=== PATIENT | male | born 1975 | race Caucasian/White ===

== ENCOUNTER 2017-09-09 23:51 | Emergency (ER) | payer OTHER, SELFPAY ==
[2017-09-09 23:51] VITALS: BP 173/106; PULSE 60; RESP 16; TEMP 37.1; O2SAT 97; BMI 36.9
--- NOTE | 2017-09-10 00:12 | RAD_ITS ---
STUDY: X-RAY - RIGHT ANKLE REASON FOR EXAM: Male, 42 years old. Pain, no known injury. TECHNIQUE: 3 view(s) of the ankle. COMPARISON: None. FINDINGS: Faint densities distal to the medial malleolus the largest measuring 0.3 cm compatible with small avulsion fractures age indeterminate. Distal fibula is normal. . Normal tibiotalar articulation and ankle mortise. Normal visualized talus and calcaneus. The visualized subtalar, talonavicular, calcaneocuboid and tarsal articulations are normal. Mild soft tissue swelling adjacent to the lateral malleolus. RAD/Ankle min 3 Views IMPRESSION: Mild soft tissue swelling lateral ankle. Small avulsion fractures medial malleolus age indeterminate. These may represent old injuries. Electronically Signed: Jono Bosch MD at 0:41 EST , Service support ,
[2017-09-10] MEDS: HYDROcodone Bitartrate/Apap 5/325 Tablet PO ×2 (00:42→01:12)
--- NOTE | 2017-09-10 00:57 | ED.DCSUM_ITS ---
- ER Visit Summary Date of Service: 09/10/17 Chief Complaint: Atraumatic right ankle pain History of Present Illness: The patient is a 42 M cup Monday morning with atraumatic right ankle pain. Denies any recent falls or trauma. No fever. He has had a history of gout in his left great toe before is never had his ankle. No history of DVT or PE. No calf swelling. No recent travel, surgery or mobilization. He denies knee or hip pain. No other complaints. Physical Examination: Well-appearing middle-age male. Vital signs are stable afebrile. H EENT exam unremarkable. Lungs clear to auscultation bilaterally. Heart regular rate and rhythm no murmur. Abdomen soft nontender. He is moving all 4 extremities are neurovascular intact. His right hip and right knee are nontender with normal range of motion in the swelling. The right ankle is swollen primarily laterally. Is mildly tender. His Achilles tendon is intact. There are no bony deformities. It is not red it is not hot. There is no signs of septic joint. He has a strong DP pulse. His right foot is nontender without deformity neurovascularly intact. The right calf is nontender without cords or edema. There is no lymphangitic streaking. Neurologic exam is normal. Test Results: Right ankle x-ray showed no acute process other than soft tissue swelling. Read both by myself and the radiologist. Emergency Department Course and Treatment: Repeat exam patient is doing well at 00 55. Clinically I think this is early gout. He will be started on prednisone. First dose in the ER and and 40 mg a day for 10 days. Motrin and [place] for pain. Nonweightbearing. He has crutches at home. Follow-up his primary care physician if not improving or return to the ER if worse. Treatment Plan: Prednisone treated for gout. Disposition: Discharge Impression: Acute atraumatic right ankle pain and swelling secondary to gout This note was generated with [employer] dictation software. It may contain incorrect words, spelling, and punctuation that were not noted in review of the chart prior to signing ED Disposition - Plan for ED Patient: Chief Complaint: Lower Extremity Injury Referrals: Kobi Chavez MD [Primary Care Provider] -
--- NOTE | 2017-09-10 00:57 | ED.DEP ---
ED Disposition - Plan for ED Patient: Disposition: Home or Assisted Living Chief Complaint: Lower Extremity Injury Instructions: ED Arthritis Gout Prescriptions: Hydrocodone/Acetaminophen [[place] 5-325 Tablet] 1 ea PO Q4H PRN PRN #20 tab PRN Reason: Pain Prednisone [Deltasone] 40 mg PO DAILY 10 Days tab Referrals: Kobi Chavez MD [Primary Care Provider] - 3-5 Days if not improving Additional Instructions: Prednisone daily for gallop. No weightbearing until swelling and pain are much better. [place] and Motrin for pain. Do not drive while using the [place]. Plenty of fluids and fiber to prevent constipation. Return if fever or looks a lot worse. Clinically however this is not an infection and is consistent with gout
--- NOTE | 2017-09-10 01:01 | DCINST.ED_ITS ---
ED Disposition - Plan for ED Patient: Disposition: Home or Assisted Living Chief Complaint: Lower Extremity Injury Instructions: ED Arthritis Gout Prescriptions: Hydrocodone/Acetaminophen [[place] 5-325 Tablet] 1 ea PO Q4H PRN PRN #20 tab PRN Reason: Pain Prednisone [Deltasone] 40 mg PO DAILY 10 Days tab Referrals: Kobi Chavez MD [Primary Care Provider] - 3-5 Days if not improving Additional Instructions: Prednisone daily for gallop. No weightbearing until swelling and pain are much better. [place] and Motrin for pain. Do not drive while using the [place]. Plenty of fluids and fiber to prevent constipation. Return if fever or looks a lot worse. Clinically however this is not an infection and is consistent with gout
[2017-09-10 01:15] VITALS: BP 200/115; PULSE 56; RESP 17; O2SAT 99
--- NOTE | 2017-09-10 01:15 | ED.RN ---
DISCHARGE INSTRUCTIONS GIVEN TO AND REVIEWED WITH PATIENT, PATIENT DENIES QUESTIONS OR CONCERNS AND VOICES UNDERSTANDING OF DISCHARGE INSTRUCTIONS. PT AMBULATES OUT OF ROOM WITHOUT DIFFICULTY.
== END 2017-09-10 01:16 | disposition home or self-care (01) ==
PROVIDERS: Emergency Provider Emergency Medicine; Family Provider Family Medicine; PCP Family Medicine
DX: M10.071 Idiopathic gout, right ankle and foot (principal); I10 Essential (primary) hypertension
CPT/HCPCS: 73610; 99283

== ENCOUNTER → 2017-11-10 08:03 | Outpatient (CLI) | payer OTHER, SELFPAY ==
[2017-11-10 08:06] LABS: Bacteria 0 SEEN /hpf (None Seen); White Blood Cells 0 SEEN /hpf (0-5)
[2017-11-10 10:23] LABS: Absolute Lymphocyte Count 2.35 X10^3/ul (0.83-4.51); Absolute Neutrophil Count 2.6 X10^3/uL (2.0-7.7); Basophil# 0.02 X10^3/uL; Basophil% 0.3 % (0-1); Eosinophils% 1.7 % (0-5); Hematocrit 46.6 % (40-54); Lymphocyte # 2.35 X10^3/ul (4.0); Lymphocyte % 38.8 % (19-41); Mean Corp Hgb Conc 34.3 g/gl (32-36); Mean Corpuscular Hgb 33.6 pg (27.0-32.0); Mean Corpuscular Volume 97.9 fL (80-94); Monocyte# 0.94 X10^3/uL; Monocyte% 15.5 % (0-10); Neutrophil # 2.64 X10^3/uL (2.7-7.7); Neutrophil % 43.7 % (47-70); Platelet Count 195 K/mm3 (150-450); RBC Distribution Width CV 14.3 % (11.6-14.6); RBC Distribution Width SD 50.5 fl (35.1-43.9); Red Blood Count 4.76 M/mm3 (4.6-6.2); White Blood Count 6.1 K/mm3 (4.4-11.0)
[2017-11-10 10:24] LABS: Color, Urine Yellow (Yellow); Glucose, Dipstick Normal (Normal); Ketone-Dipstick Negative (Negative); Leukocyte Esterase-Dipstick Negative /ul (Negative); Nitrite-Dipstick Negative (Negative); Occult Blood-Urine Negative /ul (Negative); POSITIVE COUNT NO; POSITIVE DIFFERENTIAL NO; POSITIVE MORPHOLOGY NO; Protein-Dipstick Negative (Negative); Urine Bilirubin Dipstick Negative (Negative); Urine Clarity Clear (Clear); Urine Urobilinogen Normal (Normal)
[2017-11-10 10:47] LABS: AST(SGOT) 23 U/L (15-37); Alanine Aminotransfer ALT/SGPT 38 U/L (16-61); Albumin, Serum 3.7 g/dL (3.2-5.0); Alkaline Phosphatase 70 U/L (45-117); Anion Gap 8 (5-15); BUN 13 mg/dL (7-18); BUN/Creat Ratio 12.4 RATIO (10-20); Calcium,Total 8.8 mg/dL (8.5-10.1); Chloride 108 mmol/L (98-107); Cholesterol 133 mg/dL (200); Creatinine, Serum 1.05 mg/dL (0.70-1.30); EST Glomerular Filtration Rate 82 mL/min (>60); Est Glom Filt Rate - Afr Amer 99 mL/min (>60); Globulin 3.8 g/dL (2.2-4.2); Glucose 87 mg/dL (74-106); High Density Lipoprotein 27 mg/dL; Potassium 3.7 mmol/L (3.5-5.1); Protein, Total 7.5 g/dL (6.4-8.2); Sodium Level 142 mmol/L (136-145); Thyroid Stim Hormone (TSH) 1.91 uIU/mL (0.358-3.74); Triglycerides 121 mg/dL; Uric Acid 8.5 mg/dL (3.5-7.2); Very Low Density Lipoprotein 24 mg/dL (5-40)
[2017-11-10 10:52] LABS: Mucous, Urine RARE /hpf (<or=2+); Red Blood Cells-Urine 0-5 SEEN /hpf (0-5); Squamous Epithelial Cells - UA 0-5 SEEN /hpf (0-5)
== END ==
PROVIDERS: Family Provider Family Medicine; PCP Family Medicine; Visit Provider Family Medicine
DX: I10 Essential (primary) hypertension (principal); M10.9 Gout, unspecified
CPT/HCPCS: 36415; 80053; 80061; 81001; 84443; 84550; 85025

== ENCOUNTER → 2018-03-01 11:39 | Outpatient (CLI) | payer OTHER, SELFPAY ==
[2018-03-01 13:59] LABS: Absolute Lymphocyte Count 1.93 X10^3/ul (0.83-4.51); Absolute Neutrophil Count 3.5 X10^3/uL (2.0-7.7); Basophil# 0.01 X10^3/uL; Basophil% 0.2 % (0-1); Eosinophil# 0.09 X10^3/uL; Eosinophils% 1.4 % (0-5); Hematocrit 46.4 % (40-54); Hemoglobin 15.7 g/dl (13.0-16.5); Lymphocyte # 1.93 X10^3/ul (4.0); Lymphocyte % 30.2 % (19-41); Mean Corp Hgb Conc 33.8 g/gl (32-36); Mean Corpuscular Hgb 34.1 pg (27.0-32.0); Mean Corpuscular Volume 100.9 fL (80-94); Mean Platelet Vol. 11.2 fl (6.2-12.0); Monocyte# 0.83 X10^3/uL; Neutrophil # 3.53 X10^3/uL (2.7-7.7); Platelet Count 210 K/mm3 (150-450); RBC Distribution Width CV 14.7 % (11.6-14.6); White Blood Count 6.4 K/mm3 (4.4-11.0)
[2018-03-01 14:02] LABS: POSITIVE COUNT NO; POSITIVE DIFFERENTIAL NO; POSITIVE MORPHOLOGY NO
[2018-03-01 14:14] LABS: ALB/GLOB Ratio 0.9 RATIO (0.9-2.4); AST(SGOT) 28 U/L (15-37); Alanine Aminotransfer ALT/SGPT 49 U/L (16-61); Albumin, Serum 3.7 g/dL (3.2-5.0); Alkaline Phosphatase 68 U/L (45-117); Anion Gap 8 (5-15); BUN 14 mg/dL (7-18); BUN/Creat Ratio 11.2 RATIO (10-20); Calcium,Total 9.1 mg/dL (8.5-10.1); Chloride 108 mmol/L (98-107); Creatinine, Serum 1.25 mg/dL (0.70-1.30); EST Glomerular Filtration Rate 67 mL/min (>60); Est Glom Filt Rate - Afr Amer 81 mL/min (>60); Globulin 3.9 g/dL (2.2-4.2); Glucose 92 mg/dL (74-106); Potassium 4.1 mmol/L (3.5-5.1); Protein, Total 7.6 g/dL (6.4-8.2); Sodium Level 143 mmol/L (136-145); Uric Acid 6.7 mg/dL (3.5-7.2)
== END ==
PROVIDERS: Family Provider Family Medicine; PCP Family Medicine; Visit Provider Family Medicine
DX: I10 Essential (primary) hypertension (principal); M10.9 Gout, unspecified
CPT/HCPCS: 36415; 80053; 84550; 85025

== ENCOUNTER → 2018-04-24 08:13 | Outpatient (CLI) | payer OTHER, SELFPAY ==
--- NOTE | 2018-04-24 08:18 | RAD_ITS ---
STUDY: X-RAY CHEST REASON FOR EXAM: Male, 42 years old. Hemoptysis TECHNIQUE: PA and lateral views of the chest. COMPARISON: None. FINDINGS: The lungs are clear and expanded. There is no demonstrated pleural abnormality. Normal size heart. Normal mediastinum and josefa. Normal visualized pulmonary arteries. Normal visualized aortic arch and descending thoracic aorta. Normal visualized thoracic spine. Normal visualized ribs, clavicles, and shoulders. There is no demonstrated abnormality of the visualized soft tissue structures of the upper abdomen. RAD/Chest PA and Lateral IMPRESSION: Normal x-ray examination of the chest. Electronically Signed: Ryley Dickson MD at 17:14 EDT , Service support ,
== END ==
PROVIDERS: Family Provider Family Medicine; PCP Family Medicine; Referring Provider Family Medicine; Visit Provider Family Medicine
DX: R04.2 Hemoptysis (principal)
CPT/HCPCS: 71046

== ENCOUNTER 2018-05-29 09:05 | Observation (INO) | payer OTHER, SELFPAY ==
[2018-05-29] VITALS (14 sets, daily range): BP systolic 118–151; BP diastolic 74–93; PULSE 44–63; RESP 16–18; TEMP 36.4–36.9; O2SAT 95–100; BMI 34.4; BMI 32.8; BMI 32.9
--- NOTE | 2018-05-29 09:29 | RAD_ITS ---
STUDY: X-RAY CHEST REASON FOR EXAM: Male, 42 years old. Left-sided chest pain. TECHNIQUE: Single AP portable view of the chest. COMPARISON: Comparison is made with prior study dated April 24, 2018. FINDINGS: EKG electrodes are seen. The lungs are clear and expanded. There is no demonstrated pleural abnormality. There is mild cardiac enlargement. Normal mediastinum and josefa. Normal visualized pulmonary arteries. There is atherosclerotic tortuosity of the aortic arch and descending thoracic aorta. There are diffuse degenerative changes of the visualized thoracic spine. Normal visualized ribs, clavicles, and shoulders. There is no demonstrated abnormality of the visualized soft tissue structures of the upper abdomen. RAD/Chest 1 View (Portable) IMPRESSION: Mild cardiomegaly. The lungs are clear. Electronically Signed: Drew Arriola MD at 10:05 EST Tel [phone], Service support ,
--- NOTE | 2018-05-29 09:29 | EKG12_ITS ---
Test Reason : CP/SOB Blood Pressure : / mmHG Vent. Rate : 051 BPM Atrial Rate : 051 BPM P-R Int : 186 ms QRS Dur : 092 ms QT Int : 432 ms P-R-T Axes : 012 -28 -05 degrees QTc Int : 398 ms Sinus bradycardia Voltage criteria for left ventricular hypertrophy Cannot rule out Septal infarct , age undetermined Abnormal ECG Confirmed by MYRON CHACON, LEANDRO ([id number]), scientific editor DOREEN DIAZ ([id number] on 06/01/2018 2:23:31 PM Referred By: JUSTIN/LANE Confirmed By:LEANDRO SANCHES MD
[2018-05-29 09:50] LABS: Absolute Lymphocyte Count 1.85 X10^3/ul (0.83-4.51); Absolute Neutrophil Count 4.8 X10^3/uL (2.0-7.7); Basophil# 0.01 X10^3/uL; Basophil% 0.1 % (0-1); Eosinophil# 0.02 X10^3/uL; Eosinophils% 0.3 % (0-5); Hematocrit 47.6 % (40-54); Hemoglobin 16.3 g/dl (13.0-16.5); Lymphocyte # 1.85 X10^3/ul (4.0); Lymphocyte % 24.7 % (19-41); Mean Corp Hgb Conc 34.2 g/gl (32-36); Mean Corpuscular Hgb 34.2 pg (27.0-32.0); Mean Corpuscular Volume 99.8 fL (80-94); Monocyte# 0.83 X10^3/uL; Monocyte% 11.1 % (0-10); Neutrophil # 4.78 X10^3/uL (2.7-7.7); Neutrophil % 63.7 % (47-70); POSITIVE COUNT NO; POSITIVE DIFFERENTIAL NO; POSITIVE MORPHOLOGY NO; Platelet Count 207 K/mm3 (150-450); RBC Distribution Width CV 14.5 % (11.6-14.6); RBC Distribution Width SD 52.9 fl (35.1-43.9); Red Blood Count 4.77 M/mm3 (4.6-6.2); White Blood Count 7.5 K/mm3 (4.4-11.0)
[2018-05-29 10:00] LABS: Anion Gap 10 (5-15); BUN 12 mg/dL (7-18); BUN/Creat Ratio 10.2 RATIO (10-20); Calcium,Total 9.3 mg/dL (8.5-10.1); Chloride 107 mmol/L (98-107); Creatinine, Serum 1.18 mg/dL (0.70-1.30); EST Glomerular Filtration Rate 71 mL/min (>60); Est Glom Filt Rate - Afr Amer 86 mL/min (>60); Estimated Creatinine Clearance 83.35 ml/min; Glucose 118 mg/dL (74-106); Potassium 3.6 mmol/L (3.5-5.1); Sodium Level 144 mmol/L (136-145)
[2018-05-29] MEDS: Aspirin 81 MG TAB.CHEW 324 MG PO (10:02)
[2018-05-29] MEDS: Acetaminophen 325 MG Tablet 650 MG PO ×2 (10:15→17:48)
--- NOTE | 2018-05-29 10:21 | ED.VISSUMM ---
- ER Visit Summary Date of Service: 05/29/18 Chief Complaint: Chest tightness/pressure left pectoral region History of Present Illness: The patient is a 42 M who presents from doctor's office. An appointment to be seen. When he informed his PCP that he had left-sided pressure/tightness with nausea dyspnea he was instructed to report to the emergency department. Patient states yesterday after he got home from work. He was sitting in a chair when he developed a pressure type sensation left pectoral area with radiation to the central upper back associated with diaphoresis and dyspnea. He reports no alleviating, precipitating or exacerbating factors. He has not stressed himself since the onset. There are no steps at his house. He did not do anything strenuous. He denies history of hematemesis, melena hematochezia. He denies history of GERD, reflux or hiatal hernia. There is a strong maternal family history of heart disease. His only risk factor is hypertension for 5-7 years. He denies neck pain, paresthesia, anesthesia upper lower extremity. He denies ocular, visual auditory symptoms. He states he took ibuprofen with no effect. Physical Examination: Vital signs noted and blood pressure is elevated 151/93. Heart rates 58. Head is atraumatic normocephalic. Pupils are equal round reactive. Extraocular muscles are intact. TMs are pearly white with landmarks noted. Nares patent with no drainage. Posterior pharynx without erythema or exudate. Uvula is midline. There is no dysphonia or dysphasia. Trachea is midline. There is no stridor with auscultation of the neck. Heart is regular without murmur, gallop or rub. S1 and S2 are normal. Lungs are clear to auscultation with good movement of air bilaterally. There is no reproducible chest pain. Abdomen is soft nontender with no paraspinal megaly. There is no asymmetry, swelling, discoloration, leg vein distention, palpable cords or tenderness along the distribution of the deep venous system. Neuro exam is nonfocal. Test Results: EKG was obtained and reveals a sinus bradycardia rate of 51 with evidence of LVH by voltage criteria and decreased anterior force. Portable chest x-ray reveals normal cardiac silhouette, mediastinum and lung parenchyma. CBC reveals an MCV of 99.8 otherwise negative. BMP is unremarkable with a glucose of 118. First troponin is less than 0.015. Emergency Department Course and Treatment: Patient was treated with aspirin and nitroglycerin. When he was reassessed at 1020 he reports minimal if any discomfort. He did receive 3 nitroglycerin. Need to evaluate for cardiac versus GI versus pulmonary etiology. D-dimer was not obtained since patient is PERC negative. Treatment Plan: Contact hospitalist for provocative testing Disposition: 23-hour observation PCU Impression: Chest pressure alleviated with nitroglycerin Sinus bradycardia documented on monitor and EKG History of hypertension This note was generated with [employer] dictation software. It may contain incorrect words, spelling, and punctuation that were not noted in review of the chart prior to signing ED Disposition - Plan for ED Patient: Chief Complaint: Chest Pain Referrals: Luis Enrique Paz MD [Primary Care Provider] -
[2018-05-29] MEDS: Nitroglycerin Oint 1 INCH PACKET TRANSDERM. (10:45)
--- NOTE | 2018-05-29 15:49 | HP.PCM_ITS ---
Problem List (1) Hypertension Status: Chronic History of Present Illness Date of Admission: 05/29/18 Chief Complaint: Chest pain. The patient is a 42 year old M who presents to the emergency room due to chest pain. Patient states he was resting when this initially occurred. Denies associated shortness of breath, diaphoresis, dizziness, lightheadedness. Patient reports pain on the left side of his chest. Denies pain radiation although does state he has some tingling sensation to his left arm. He reports history of high blood pressure. He states a third agent was added about a month ago to control his blood pressure. He denies other cardiac history. No history of stress test. Patient reports a significant cardiac history on both sides of his family. Past Medical History Past Medical History (Chronic Problems): Chronic Problems Hypertension (Chronic) Allergies No Known Allergies Allergy (Verified 05/29/18 09:07) Home Medications: Ambulatory Orders Medication Instructions Recorded Atenolol [Tenormin] 25 mg PO DAILY 07/14/13 Losartan Potassium 100 mg PO DAILY 09/10/17 Amlodipine [Norvasc] 5 mg PO DAILY 05/29/18 Surgical History: tonsillectomy, - - Left shoulder scope, knee scope, right ankle scope, cystoscopy with balloon dilation of right ureter and right ureteroscopy/lithotripsy. Lives: Spouse/ Significant Other Smoking Status: Never smoker Alcohol: None Drugs: None - *Family History Maternal History Items: Hypertension Paternal History Items: - - Denies known paternal cardiac history Review of Systems Constitutional: Denies: Chills, Fever, Weight Change HEENT: Denies: Head Aches, Sinus Congestion, Sinus Drainage Cardiovascular: Reports: Chest Pain. Denies: Edema, Light Headedness, Palpitations, Syncope Respiratory: Denies: Cough, Shortness of breath at rest, Sputum production Gastrointestinal: Denies: Abdominal Pain, Nausea, Vomiting Genitourinary: Denies: Dysuria Musculoskeletal: Denies: Joint Pain, Joint Tenderness Skin: Denies: Rash, Wounds Neurological: Denies: Numbness, Tingling, Focal weakness Psychiatric: Denies: Anxiety, Depression, Homicidal Ideations, Suicidal Ideations Hematologic/ Lymphatic: Denies: Easy Bruising, Easy Bleeding VTE Information - Inpt Only VTE Present on Admission: No VTE Mechan Device Prophylaxis: None VTE Pharm Prophylaxis ordered?: No Reason prophylaxis not ordered:: Treatment Not Indicated - Physical Exam General: Alert, Oriented x3, Cooperative HEENT: Atraumatic, PERRLA, EOMI, Normocephalic Neck: Supple, No JVD, Negative Carotid Bruits Lungs: Clear to auscultation, Normal air movement Cardiovascular: Regular rate, Regular Rhythm, Normal S1, Normal S2, No murmurs Abdomen: Bowel Sounds Present, Soft, Non Tender, Non-Distended Extremities: No edema, Capillary Refill Less than 3 Seconds Skin: No rashes, No breakdown Musculoskeletal: No Tenderness to Palpation of Joints or Extremities Neurological: Cranial nerves II-XII grossly intact, Neuro grossly intact Psych/Mental Status: Normal Affect, Appropriate Vital Signs Temp Pulse Resp BP Pulse Ox 97.8 F 46 L 18 118/74 100 05/29/18 12:32 05/29/18 14:56 05/29/18 12:32 05/29/18 12:32 05/29/18 12:32 Oxygen Flow Rate (L/min) 2 Oxygen Delivery Method Room Air Weight: 229 lb 0.964 oz Body Mass Index (BMI) 32.8 Laboratory Tests Past 24 Hrs 05/29/18 05/29/18 05/29/18 09:21 09:21 12:30 WBC 7.5 RBC 4.77 Hgb 16.3 Hct 47.6 MCV 99.8 H MCH 34.2 H MCHC 34.2 RDW 14.5 RDW Differential 52.9 H Plt Count 207 MPV 10.0 Immature Gran % (Auto) 0.100 Neut % (Auto) 63.7 Lymph % (Auto) 24.7 [place] % (Auto) 11.1 H Eos % (Auto) 0.3 Baso % (Auto) 0.1 Absolute Neuts (auto) 4.8 Absolute Lymphs (auto) 1.85 Total Counted Not Reportable Sodium 144 Potassium 3.6 Chloride 107 Carbon Dioxide 27.0 Anion Gap 10 BUN 12 Creatinine 1.18 Estim Creat Clear Calc 83.35 Est GFR (MDRD) Af Amer 86 Est GFR (MDRD) Non-Af 71 BUN/Creatinine Ratio 10.2 Glucose 118 H Calcium 9.3 Troponin I < 0.015 < 0.015 05/29/18 15:32 WBC RBC Hgb Hct MCV MCH MCHC RDW RDW Differential Plt Count MPV Immature Gran % (Auto) Neut % (Auto) Lymph % (Auto) [place] % (Auto) Eos % (Auto) Baso % (Auto) Absolute Neuts (auto) Absolute Lymphs (auto) Total Counted Sodium Potassium Chloride Carbon Dioxide Anion Gap BUN Creatinine Estim Creat Clear Calc Est GFR (MDRD) Af Amer Est GFR (MDRD) Non-Af BUN/Creatinine Ratio Glucose Calcium Troponin I Pending Assessment/Plan 1. Chest pain-troponin negative x1. EKG without acute changes. Chest x-ray shows mild cardiomegaly. Trend enzymes. Stress test in a.m. 2. Hypertension-stable, continue home amlodipine, losartan and atenolol. 3. Bradycardia-heart rate 40-50s. Monitor telemetry. Suspect secondary to bet [place] regimen. DVT prophylaxis-not indicated due to low risk. Encourage early ambulation. This patient was seen by KYLAH Cobb under the supervision of Dr. Bueno.
[2018-05-29 17:59] LABS: Hemoglobin A1c 5.8 % (4.2-6.3)
[2018-05-30 03:05] VITALS: PULSE 48
[2018-05-30 04:00] VITALS: BP 132/84; PULSE 53; RESP 16; TEMP 36.5; O2SAT 97
[2018-05-30] MEDS: Losartan Potassium 100 MG Tablet PO (05:49)
--- NOTE | 2018-05-30 05:55 | EKG12_ITS ---
Test Reason : AM EKG Blood Pressure : / mmHG Vent. Rate : 047 BPM Atrial Rate : 047 BPM P-R Int : 196 ms QRS Dur : 102 ms QT Int : 480 ms P-R-T Axes : 019 -03 022 degrees QTc Int : 424 ms Sinus bradycardia Septal infarct , age undetermined Abnormal ECG When compared with ECG of 29-MAY-2018 09:09, MANUAL COMPARISON REQUIRED, DATA IS UNCONFIRMED Confirmed by MYRON CHACON, LEANDRO ([id number]), mapping editor DOREEN DIAZ ([id number]) on 06/01/2018 2:01:30 PM Referred By: DR HOOVER Confirmed By:LEANDRO SANCHES MD
[2018-05-30 06:15] VITALS: PULSE 54
[2018-05-30 06:15] LABS: Absolute Lymphocyte Count 2.44 X10^3/ul (0.83-4.51); Absolute Neutrophil Count 3.1 X10^3/uL (2.0-7.7); Basophil# 0.01 X10^3/uL; Basophil% 0.2 % (0-1); Eosinophil# 0.05 X10^3/uL; Eosinophils% 0.8 % (0-5); Hematocrit 43.5 % (40-54); Hemoglobin 14.7 g/dl (13.0-16.5); Lymphocyte # 2.44 X10^3/ul (4.0); Lymphocyte % 39.1 % (19-41); Mean Corp Hgb Conc 33.8 g/gl (32-36); Mean Corpuscular Hgb 33.7 pg (27.0-32.0); Mean Corpuscular Volume 99.8 fL (80-94); Monocyte# 0.67 X10^3/uL; Monocyte% 10.7 % (0-10); Neutrophil # 3.06 X10^3/uL (2.7-7.7); Platelet Count 187 K/mm3 (150-450); RBC Distribution Width CV 14.4 % (11.6-14.6); RBC Distribution Width SD 52.5 fl (35.1-43.9); Red Blood Count 4.36 M/mm3 (4.6-6.2); White Blood Count 6.2 K/mm3 (4.4-11.0)
[2018-05-30 06:26] LABS: POSITIVE COUNT NO; POSITIVE DIFFERENTIAL NO; POSITIVE MORPHOLOGY NO
[2018-05-30 06:39] LABS: Anion Gap 6 (5-15); BUN 12 mg/dL (7-18); BUN/Creat Ratio 12.7 RATIO (10-20); Calcium,Total 8.4 mg/dL (8.5-10.1); Chloride 108 mmol/L (98-107); Creatinine, Serum 0.95 mg/dL (0.70-1.30); EST Glomerular Filtration Rate 92 mL/min (>60); Est Glom Filt Rate - Afr Amer 111 mL/min (>60); Estimated Creatinine Clearance 103.52 ml/min; Glucose 92 mg/dL (74-106); Potassium 3.4 mmol/L (3.5-5.1); Sodium Level 141 mmol/L (136-145)
[2018-05-30 06:53] LABS: International Normalized Ratio 1.1; Prothrombin Time (Protime)PT. 14.2 SECONDS (11.7-14.9)
--- NOTE | 2018-05-30 09:26 | STRESSREP ---
Stress Test Report Exercise myocardial perfusion stress test. 42-year-old man with a history of chest pain. Stress protocol: Resting EKG demonstrates sinus bradycardia with a rate of 52 bpm normal intervals are noted resting blood pressure 122/80 6 m of mercury. The patient exercised according to the regular [place] protocol for a total duration of 10 minutes and 30 seconds the maximum heart rate attained was 162 bpm which was 91% of maximum predicted heart rate the maximum workload was 12.8 metabolic equivalents. At rest there were no ST or T wave changes noted suggest ischemia peak exercise upsloping ST changes only were noted with normally the criteria for ischemia. The resting blood pressure 122/86 with a peak blood pressure 190/90 mmHg. Myocardial perfusion protocol. 14.3 mCi of technetium 99m sestamibi was injected at rest. Patient exercised according to regular [place] protocol for total duration of 10-1/2 minutes at peak exercise 44.6 mCi of technetium 99m sestamibi was injected stress images were obtained stress and rest images were reconstructed and compared in the short axis vertical long horizontal long axis. Gated images were also obtained Perfusion SPECT analysis: Review of the stress images demonstrate normal uptake of tracer noted in all areas of the myocardium. The resting images similarly demonstrate normal uptake of tracer noted in all areas of the myocardium. No areas of reversibility are noted suggest ischemia no previous infarct is noted. Gated SPECT analysis: The gated ejection fraction is noted to be 62%. Conclusion: Normal exercise myocardial perfusion stress test at a high workload. Preserved ejection fraction.
[2018-05-30 09:51] VITALS: BP 146/104; PULSE 79; RESP 16; TEMP 36.9; O2SAT 98
[2018-05-30] MEDS: Atenolol 25 MG Tablet PO (09:52)
--- NOTE | 2018-05-30 11:01 | DCINST_ITS ---
- Discharge Diagnoses Current Active Problems: Current Active and Chronic Problems Hypertension (Chronic) You will use the following diet at home:: No restrictions Discharge Activity: Return to Normal Activity Call your doctor if you observe: Shortness of breath, Dizziness, Fainting spells, Chest pain Allergies/Adverse Reactions: Allergies No Known Allergies Allergy (Verified 05/29/18 09:07) Medications to take at Discharge Losartan Potassium 100 mg PO DAILY 09/10/17 Amlodipine [Norvasc] 10 mg PO DAILY #30 tablet 05/30/18 The following prescriptions were given: Amlodipine [Norvasc] 10 mg PO DAILY #30 tablet Primary Care Physician: Luis Enrique Paz MD [Primary Care Provider] - Please follow up with your Primary Care Physician in: 1 Week Test Results: Test results from this visit will be discussed in further detail at your follow- up appointment, if applicable. Proposed Discharge Date: 05/30/18
--- NOTE | 2018-05-30 11:03 | DS.PCM_ITS ---
<Carolee Silva - Last Filed: 05/30/18 11:09> Discharge Date and Diagnosis Date of Admission: 05/29/18 Date of Discharge: 05/30/18 - Primary Discharge Diagnosis 1. Chest pain, ACS ruled out 2. Hypertension 3. Mild Bradycardia - Secondary Discharge Diagnosis Chronic Problems Hypertension (Chronic) Hospital Course and Treatment Imaging Results: Diagnostic Data Chest X-Ray 05/29/18 09:29 IMPRESSION: Mild cardiomegaly. The lungs are clear. Electronically Signed: Drew Arriola MD at 10:05 EST Tel [phone], Service support , Operations: None Procedures: Stress test Summary of Care Provided: The patient is a 42 year old M admitted 05/29/18 due to chest pain. 1. Chest pain, ACS ruled out-troponin negative. EKG without acute changes. Chest x-ray shows mild cardiomegaly. Stress test without evidence of ischemia. 2. Hypertension-stable, continue home amlodipine, losartan. Atenolol discontinued and patient's home amlodipine regimen increased. Patient instructed to check blood pressure twice daily and report findings to PCP for further adjustments as necessary. 3. Mild Bradycardia-heart rate 40-50s. Suspect secondary to beta-[place] regimen. Atenolol discontinued. General: Alert, Oriented x3, Cooperative HEENT: Atraumatic, PERRLA, EOMI, Normocephalic Neck: Supple, No JVD, Negative Carotid Bruits Lungs: Clear to auscultation, Normal air movement Cardiovascular: Regular rate, Regular Rhythm, Normal S1, Normal S2, No murmurs Abdomen: Bowel Sounds Present, Soft, Non Tender, Non-Distended Extremities: No edema, Capillary Refill Less than 3 Seconds Skin: No rashes, No breakdown Musculoskeletal: No Tenderness to Palpation of Joints or Extremities Neurological: Cranial nerves II-XII grossly intact, Neuro grossly intact Psych/Mental Status: Normal Affect, Appropriate Patient seen and examined prior to discharge. Physical assessment as noted above. Patient stable for discharge home with follow up with PCP in 1 week. This patient was seen by KYLAH Cobb under the supervision of Dr. Villa. - Physical Exam Vital Signs Temp Pulse Resp BP Pulse Ox 98.5 F 79 16 146/104 H 98 05/30/18 09:51 05/30/18 09:51 05/30/18 09:51 05/30/18 09:51 05/30/18 09:51 Oxygen Flow Rate (L/min) 2 Oxygen Delivery Method Room Air Weight: 229 lb 0.964 oz Body Mass Index (BMI) 32.8 Intake and Output for Last 24 Hours 05/28/18 05/29/18 05/30/18 23:59 23:59 23:59 Intake Total 580 / 580 120 / 120 Balance 580 / 580 120 / 120 Laboratory Tests Past 24 Hrs 05/29/18 05/29/18 05/29/18 09:21 12:30 15:32 WBC RBC Hgb Hct MCV MCH MCHC RDW RDW Differential Plt Count MPV Immature Gran % (Auto) Neut % (Auto) Lymph % (Auto) [place] % (Auto) Eos % (Auto) Baso % (Auto) Absolute Neuts (auto) Absolute Lymphs (auto) Total Counted PT INR APTT Sodium Potassium Chloride Carbon Dioxide Anion Gap BUN Creatinine Estim Creat Clear Calc Est GFR (MDRD) Af Amer Est GFR (MDRD) Non-Af BUN/Creatinine Ratio Glucose Hemoglobin A1c 5.8 Calcium Troponin I < 0.015 < 0.015 05/30/18 05/30/18 05/30/18 05:25 05:25 05:25 WBC 6.2 RBC 4.36 L Hgb 14.7 Hct 43.5 MCV 99.8 H MCH 33.7 H MCHC 33.8 RDW 14.4 RDW Differential 52.5 H Plt Count 187 MPV 10.0 Immature Gran % (Auto) 0.200 Neut % (Auto) 49.0 Lymph % (Auto) 39.1 [place] % (Auto) 10.7 H Eos % (Auto) 0.8 Baso % (Auto) 0.2 Absolute Neuts (auto) 3.1 Absolute Lymphs (auto) 2.44 Total Counted Not Reportable PT 14.2 INR 1.1 APTT 26.0 Sodium 141 Potassium 3.4 L Chloride 108 H Carbon Dioxide 27.0 Anion Gap 6 BUN 12 Creatinine 0.95 Estim Creat Clear Calc 103.52 Est GFR (MDRD) Af Amer 111 Est GFR (MDRD) Non-Af 92 BUN/Creatinine Ratio 12.7 Glucose 92 Hemoglobin A1c Calcium 8.4 L Troponin I Discharge Diet: 1800 Calorie Control Diet Discharge Activity: Return to Normal Activity Call your doctor if you observe: Shortness of breath, Dizziness, Fainting spells, Chest pain Home Medications: Medications to take at Discharge Losartan Potassium 100 mg PO DAILY 09/10/17 Amlodipine [Norvasc] 10 mg PO DAILY #30 tablet 05/30/18 Following Prescrptions Were Given to Patient: Amlodipine [Norvasc] 10 mg PO DAILY #30 tablet Primary Care Physician: Luis Enrique Paz MD [Primary Care Provider] - Please follow up with your Primary Care Physician in: 1 Week Disposition: Home Minutes spent on discharge:: 35 Patient Condition:: Stable Medical Necessity - Tobacco Use Smoking Status: Never smoker Meaningful Use Info Meaningful Use Diagnoses (Choose all that apply): None applicable <Elma Villa - Last Filed: 05/30/18 16:01> Discharge Date and Diagnosis - Secondary Discharge Diagnosis Chronic Problems Hypertension (Chronic) Hospital Course and Treatment Summary of Care Provided: Patient seen by Carolee MONTERO under my supervsion The patient is a 42 year old M admitted with a complaint of chest pain. EKG was negative and troponins were also negative. CXR showed mild cardiomegaly and stress test was negative for ischemia. He remained stable and he was discharged home on 05/30/18. During admisison, he was noted to have asymptomatic bradycardia. Atenolol was discontinued and his amlodipine dose was increased. Losartan was continue. He is to follow up with his PCP and keep a log of daily BP checks to review with PCP. Patient seen and examined prior to discharge. He had no complaints and felt well. 12 point review of systems was otherwise negative. Labs and vitals reviewed. Home meds reviewed and reconciled. o/e: Vital Signs Height 5 ft 10 in Weight: 229 lb 0.964 oz Weight in Pounds 229.1 lbs Pulse Ox 98 Temperature 98.5 F Pulse Rate 80 Respiratory Rate 16 Blood Pressure 146/104 Blood Pressure Position Sitting []General: Alert, Oriented x3, Cooperative HEENT: Atraumatic, PERRLA, EOMI, Normocephalic Neck: Supple, No JVD, Negative Carotid Bruits Lungs: Clear to auscultation, Normal air movement Cardiovascular: Regular rate, Regular Rhythm, Normal S1, Normal S2, No murmurs Abdomen: Bowel Sounds Present, Soft, Non Tender, Non-Distended Extremities: No edema, Capillary Refill Less than 3 Seconds Skin: No rashes, No breakdown Musculoskeletal: No Tenderness to Palpation of Joints or Extremities Neurological: Cranial nerves II-XII grossly intact, Neuro grossly intact Psych/Mental Status: Normal Affect, Appropriate Plan as stated above. Agree with rest of Carolee Silva [employer]-C's note, assessment and plan. - Physical Exam Vital Signs Temp Pulse Resp BP Pulse Ox 98.5 F 80 16 146/104 H 98 05/30/18 09:51 05/30/18 11:12 05/30/18 09:51 05/30/18 09:51 05/30/18 09:51 Oxygen Flow Rate (L/min) 2 Oxygen Delivery Method Room Air Weight: 229 lb 0.964 oz Body Mass Index (BMI) 32.8 Intake and Output for Last 24 Hours 05/28/18 05/29/18 05/30/18 23:59 23:59 23:59 Intake Total 580 / 580 120 / 120 Balance 580 / 580 120 / 120 Laboratory Tests Past 24 Hrs 05/29/18 05/29/18 05/30/18 09:21 15:32 05:25 WBC 6.2 RBC 4.36 L Hgb 14.7 Hct 43.5 MCV 99.8 H MCH 33.7 H MCHC 33.8 RDW 14.4 RDW Differential 52.5 H Plt Count 187 MPV 10.0 Immature Gran % (Auto) 0.200 Neut % (Auto) 49.0 Lymph % (Auto) 39.1 [place] % (Auto) 10.7 H Eos % (Auto) 0.8 Baso % (Auto) 0.2 Absolute Neuts (auto) 3.1 Absolute Lymphs (auto) 2.44 Total Counted Not Reportable PT INR APTT Sodium Potassium Chloride Carbon Dioxide Anion Gap BUN Creatinine Estim Creat Clear Calc Est GFR (MDRD) Af Amer Est GFR (MDRD) Non-Af BUN/Creatinine Ratio Glucose Hemoglobin A1c 5.8 Calcium Troponin I < 0.015 05/30/18 05/30/18 05:25 05:25 WBC RBC Hgb Hct MCV MCH MCHC RDW RDW Differential Plt Count MPV Immature Gran % (Auto) Neut % (Auto) Lymph % (Auto) [place] % (Auto) Eos % (Auto) Baso % (Auto) Absolute Neuts (auto) Absolute Lymphs (auto) Total Counted PT 14.2 INR 1.1 APTT 26.0 Sodium 141 Potassium 3.4 L Chloride 108 H Carbon Dioxide 27.0 Anion Gap 6 BUN 12 Creatinine 0.95 Estim Creat Clear Calc 103.52 Est GFR (MDRD) Af Amer 111 Est GFR (MDRD) Non-Af 92 BUN/Creatinine Ratio 12.7 Glucose 92 Hemoglobin A1c Calcium 8.4 L Troponin I Code Visit Inpatient E&M: 72151 Disch Hosp
[2018-05-30 11:12] VITALS: PULSE 80
--- OUTSIDE RECORDS SUMMARY | 2018-07-10 23:36 | XMS RPT_ITS ---
:1975 Author Organization OHIP Support Name Relationship Address Phone [employer] Unavailable . + [place] [address] LUISA DENNY Unavailable [address] + [place] [address] [employer] Unavailable . + [place] [address] LUISA DENNY Unavailable [address] + [place] [address] [employer] Unavailable . + [place] [address] EDUIN LUISA Unavailable [address] + [place] [address] [employer] Unavailable . + [place] [address] LUISA DENNY Unavailable [address] + [place] [address] [employer] Unavailable . + [place] [address] EDUIN LUISA Unavailable [address] + [place] [address] [employer] Unavailable . + [place] [address] EDUIN LUISA Unavailable [address] + [place] [address] [employer] Unavailable . + [place] [address] EDUIN LUISA Unavailable [address] + [place] [address] [employer] Unavailable . + [place] [address] DENNYLUISA Unavailable [address] + [place] [address] [employer] Unavailable . + [place] [address] LUISA DENNY Unavailable [address] [facility] + [place] [address] Care Team Providers Name Role Phone Philip Ger Attending Unavailable Daniel Bueno Referring Unavailable Kobi Mg Primary Care Unavailable Kobi Davis Attending Unavailable Schinner, Luis Enrique Candice Attending Unavailable Schinner, Luis Enrique E Primary Care Unavailable Schinner, Luis Enrique E Attending Unavailable Schinner, Luis Enrique E Primary Care Unavailable Schinner, Luis Enrique E Attending Unavailable Schinner, Luis Enrique E Primary Care Unavailable Schinner, Luis Enrique E Attending Unavailable Schinner, Luis Enrique E Referring Unavailable Schinner, Luis Enrique E Primary Care Unavailable Schinner, Luis Enrique E Primary Care Unavailable Tereletsjae, Daniel Admitting Unavailable Elma Villa Attending Unavailable Tereletsky, Daniel Admitting Unavailable Schinner, Luis Enrique E Primary Care Unavailable Tereletsky, Daniel Consulting Unavailable Tereletsky, Daniel Attending Unavailable Tereletsky, Daniel Admitting Unavailable Schinner, Luis Enrique E Primary Care Unavailable Elma Villa Consulting Unavailable Elma Villa Attending Unavailable PROBLEMS PROBLEMS DATE TYPE CONDITION / CODE ATTENDING STATUS SOURCE 06/19/2018 Unknown R07.9 - Chest Philip, Ger Active [place] pain, unspecified Community / R07.9(ICD-10) Hospital Repository 04/24/2018 Unknown R04.2 - Schinner, Luis Enrique Active [place] Hemoptysis / E Community R04.2(ICD-10) Hospital Repository 11/16/2017 Unknown M10.9 - Gout, Schinner, Luis Enrique Active [place] unspecified / E Community M10.9(ICD-10) Hospital Repository PROCEDURES PROCEDURES No Procedure Records FoundRESULTS RESULTS 12 LEAD ELECTROCARDIOGRAM Observed: 06/01/2018 Status: F Source: NA 2:23 PM [facility] REPOSITORY [facility] Cardiovascular Services [address] [place] [address] 12 Lead EKG 05/29/18 0909 MR#: [id number] Acct: [id number] Name: SHAYNA DENNY Rep #: [id number] : 1975 42 From: Ger Palacios MD Attending Dr: Elma Villa MD Status: DIS SHU Ordering Dr: Salomón Landry MD Date: 05/29/18 Location: [facility] Sex: M C Admitted: 05/29/18 Test Reason : CP/SOB Blood Pressure : / mmHG Vent. Rate : 051 BPM Atrial Rate : 051 BPM P-R Int : 186 ms QRS Dur : 092 ms QT Int : 432 ms P-R-T Axes : 012 -28 -05 degrees QTc Int : 398 ms Sinus bradycardia Voltage criteria for left ventricular hypertrophy Cannot rule out Septal infarct , age undetermined Abnormal ECG Confirmed by GER PALACIOS MD ([id number]), online editor DOREEN DIAZ ([id number]) on 06/01/2018 2:23:31 PM Referred By: JUSTIN/LANE Confirmed By:GER PALACIOS MD 06/01/18 142 Date Ger Palacios MD CC: Luis Enrique Paz MD; Elma Villa MD; Salomón Landry MD Signed 12 LEAD ELECTROCARDIOGRAM Observed: 06/01/2018 Status: F Source: RYE 2:01 PM [facility] REPOSITORY [facility] Cardiovascular Services [address] [place] [address] 12 Lead EKG 05/30/18 0528 MR#: [id number] Acct: [id number] Name: SHAYNA DENNY Rep #: [id number] : 1975 42 From: Ger Palacios MD Attending Dr: Elma Villa MD Status: DIS SHU Ordering Dr: Daniel Bueno DO Date: 05/30/18 Location: [facility] Sex: M C Admitted: 05/29/18 Test Reason : AM EKG Blood Pressure : / mmHG Vent. Rate : 047 BPM Atrial Rate : 047 BPM P-R Int : 196 ms QRS Dur : 102 ms QT Int : 480 ms P-R-T Axes : 019 -03 022 degrees QTc Int : 424 ms Sinus bradycardia Septal infarct , age undetermined Abnormal ECG When compared with ECG of 29-MAY-2018 09:09, MANUAL COMPARISON REQUIRED, DATA IS UNCONFIRMED Confirmed by GER PALACIOS MD ([id number]), online editor DOREEN DIAZ ([id number]) on 06/01/2018 2:01:30 PM Referred By: DR BUENO Confirmed By:GER PALACIOS MD 06/01/18 1401 Date Ger Palacios MD CC: Luis Enrique Paz MD; Daniel Bueno DO; Elma Villa MD Signed DISCHARGE SUMMARY Observed: 05/30/2018 Status: F Source: RYE 4:02 PM [facility] REPOSITORY [facility] Medical Records Department [address] [place] [address] Discharge Summary 05/30/18 1102 MR#: [id number] Acct: [id number] Name: SHAYNA DENNY Rep #: [id number] : 1975 42 From: Carolee Silva [employer] PCP: Luis Enrique Paz MD Status: DIS SHU Y Location: [place] [id number] <Carolee Silva - Last Filed: 05/30/18 11:09> Discharge Date and Diagnosis Date of Admission: 05/29/18 Date of Discharge: 05/30/18 - Primary Discharge Diagnosis 1. Chest pain, ACS ruled out 2. Hypertension 3. Mild Bradycardia - Secondary Discharge Diagnosis Chronic Problems Hypertension (Chronic) Hospital Course and Treatment Imaging Results: Diagnostic Data Chest X-Ray 05/29/18 09:29 IMPRESSION: Mild cardiomegaly. The lungs are clear. Electronically Signed: Drew Arriola MD at 10:05 EST Tel [phone], Service support , Operations: None Procedures: Stress test Summary of Care Provided: The patient is a 42 year old M admitted 05/29/18 due to chest pain. 1. Chest pain, ACS ruled out-troponin negative. EKG without acute changes. Chest x-ray shows mild cardiomegaly. Stress test without evidence of ischemia. 2. Hypertension-stable, continue home amlodipine, losartan. Atenolol discontinued and patient's home amlodipine regimen increased. Patient instructed to check blood pressure twice daily and report findings to PCP for further adjustments as necessary. 3. Mild Bradycardia-heart rate 40-50s. Suspect secondary to beta-[place] regimen. Atenolol discontinued. General: Alert, Oriented x3, Cooperative HEENT: Atraumatic, PERRLA, EOMI, Normocephalic Neck: Supple, No JVD, Negative Carotid Bruits Lungs: Clear to auscultation, Normal air movement Cardiovascular: Regular rate, Regular Rhythm, Normal S1, Normal S2, No murmurs Abdomen: Bowel Sounds Present, Soft, Non Tender, Non-Distended Extremities: No edema, Capillary Refill Less than 3 Seconds Skin: No rashes, No breakdown Musculoskeletal: No Tenderness to Palpation of Joints or Extremities Neurological: Cranial nerves II-XII grossly intact, Neuro grossly intact Psych/Mental Status: Normal Affect, Appropriate Patient seen and examined prior to discharge. Physical assessment as noted above. Patient stable for discharge home with follow up with PCP in 1 week. This patient was seen by KYLAH Cobb under the supervision of Dr. Villa. - Physical Exam Vital Signs Temp Pulse Resp BP Pulse Ox 98.5 F 79 16 146/104 H 98 05/30/18 09:51 05/30/18 09:51 05/30/18 09:51 05/30/18 09:51 05/30/18 09:51 Oxygen Flow Rate (L/min) 2 Oxygen Delivery Method Room Air Weight: 229 lb 0.964 oz Body Mass Index (BMI) 32.8 Intake and Output for Last 24 Hours Intake Total 580 / 580 120 / 120 Balance 580 / 580 120 / 120 Laboratory Tests Past 24 Hrs WBC RBC Hgb Hct WBC 6.2 Discharge Diet: 1800 Calorie Control Diet Discharge Activity: Return to Normal Activity Call your doctor if you observe: Shortness of breath, Dizziness, Fainting spells, Chest pain Home Medications: Medications to take at Discharge Losartan Potassium 100 mg PO DAILY 09/10/17 Amlodipine [Norvasc] 10 mg PO DAILY #30 tablet 05/30/18 Following Prescrptions Were Given to Patient: Amlodipine [Norvasc] 10 mg PO DAILY #30 tablet Primary Care Physician: Luis Enrique aPz MD [Primary Care Provider] - Please follow up with your Primary Care Physician in: 1 Week Disposition: Home Minutes spent on discharge:: 35 Patient Condition:: Stable Medical Necessity - Tobacco Use Smoking Status: Never smoker Meaningful Use Info Meaningful Use Diagnoses (Choose all that apply): None applicable <Elma Villa - Last Filed: 05/30/18 16:01> Discharge Date and Diagnosis - Secondary Discharge Diagnosis Chronic Problems Hypertension (Chronic) Hospital Course and Treatment Summary of Care Provided: Patient seen by Carolee MONTERO under my supervsion The patient is a 42 year old M admitted with a complaint of chest pain. EKG was negative and troponins were also negative. CXR showed mild cardiomegaly and stress test was negative for ischemia. He remained stable and he was discharged home on 05/30/18. During admisison, he was noted to have asymptomatic bradycardia. Atenolol was discontinued and his amlodipine dose was increased. Losartan was continue. He is to follow up with his PCP and keep a log of daily BP checks to review with PCP. Patient seen and examined prior to discharge. He had no complaints and felt well. 12 point review of systems was otherwise negative. Labs and vitals reviewed. Home meds reviewed and reconciled. o/e: Vital Signs Height 5 ft 10 in Weight: 229 lb 0.964 oz Weight in Pounds 229.1 lbs Pulse Ox 98 []General: Alert, Oriented x3, Cooperative HEENT: Atraumatic, PERRLA, EOMI, Normocephalic Neck: Supple, No JVD, Negative Carotid Bruits Lungs: Clear to auscultation, Normal air movement Cardiovascular: Regular rate, Regular Rhythm, Normal S1, Normal S2, No murmurs Abdomen: Bowel Sounds Present, Soft, Non Tender, Non-Distended Extremities: No edema, Capillary Refill Less than 3 Seconds Skin: No rashes, No breakdown Musculoskeletal: No Tenderness to Palpation of Joints or Extremities Neurological: Cranial nerves II-XII grossly intact, Neuro grossly intact Psych/Mental Status: Normal Affect, Appropriate Plan as stated above. Agree with rest of Carolee MONTERO's note, assessment and plan. - Physical Exam Vital Signs Temp Pulse Resp BP Pulse Ox 98.5 F 80 16 146/104 H 98 05/30/18 09:51 05/30/18 11:12 05/30/18 09:51 05/30/18 09:51 11/28/18 09:51 Oxygen Flow Rate (L/min) 2 Oxygen Delivery Method Room Air Weight: 229 lb 0.964 oz Body Mass Index (BMI) 32.8 Intake and Output for Last 24 Hours Intake Total 580 / 580 120 / 120 Balance 580 / 580 120 / 120 Laboratory Tests Past 24 Hrs WBC 6.2 RBC 4.36 L Hgb 14.7 Hct 43.5 MCV 99.8 H MCH 33.7 H MCHC 33.8 RDW 14.4 RDW Differential 52.5 H WBC RBC Hgb Hct MCV MCH MCHC Code Visit Inpatient E AND M: [id number] Disch Hosp 05/30/18 1109 <Electronically signed by Carolee DIORC> Date Carolee DIORC 05/30/18 1602<Electronically signed by Elma Villa MD> Cosigner Signature (if applicable): Date Elma Villa MD CC: KYLAH Silva; Luis Enrique Paz MD; Elma Villa MD Signed DISCHARGE INSTRUCTION Observed: 05/30/2018 Status: F Source: NA 11:02 AM [facility] Medical Records Department [address] [place] [address] Instructions for Home/Discharge Instructions 05/30/18 1100 MR#: [id number] Acct: [id number] Name: SHAYNA DENNY Rep #: [id number] : 1975 42 From: Carolee MONTERO PCP: Luis Enrique Paz MD Status: ADM SHU - Discharge Diagnoses Current Active Problems: Current Active and Chronic Problems Hypertension (Chronic) You will use the following diet at home:: No restrictions Discharge Activity: Return to Normal Activity Call your doctor if you observe: Shortness of breath, Dizziness, Fainting spells, Chest pain Allergies/Adverse Reactions: Allergies No Known Allergies Allergy (Verified 05/29/18 09:07) Medications to take at Discharge Losartan Potassium 100 mg PO DAILY 09/10/17 Amlodipine [Norvasc] 10 mg PO DAILY #30 tablet 05/30/18 The following prescriptions were given: Amlodipine [Norvasc] 10 mg PO DAILY #30 tablet Primary Care Physician: Luis Enrique Paz MD [Primary Care Provider] - Please follow up with your Primary Care Physician in: 1 Week Test Results: Test results from this visit will be discussed in further detail at your follow-up appointment, if applicable. Proposed Discharge Date: 05/30/18 05/30/18 1102 <Electronically signed by Carolee MONTERO> Date Carolee MONTERO CC: Luis Enrique Paz MD STRESS REPORT Observed: 05/30/2018 Status: F Source: RYE 9:28 AM [facility] REPOSITORY [facility] Cardiovascular Services [address] [place] [address] MR#: [id number] Acct: [id number] Name: SHAYNA DENNY Rep #: [id number] : 1975 42 From: Ger Palacios MD Primary Care: Luis Enrique Paz MD Status: ADM SHU Ordering Dr: [place]: Derrek Pulliam Stress Test Report Exercise myocardial perfusion stress test. 42-year-old man with a history of chest pain. Stress protocol: Resting EKG demonstrates sinus bradycardia with a rate of 52 bpm normal intervals are noted resting blood pressure 122/80 6 m of mercury. The patient exercised according to the regular [place] protocol for a total duration of 10 minutes and 30 seconds the maximum heart rate attained was 162 bpm which was 91% of maximum predicted heart rate the maximum workload was 12.8 metabolic equivalents. At rest there were no ST or T wave changes noted suggest ischemia peak exercise upsloping ST changes only were noted with normally the criteria for ischemia. The resting blood pressure 122/86 with a peak blood pressure 190/90 mmHg. Myocardial perfusion protocol. 14.3 mCi of technetium 99m sestamibi was injected at rest. Patient exercised according to regular [place] protocol for total duration of 10-1/2 minutes at peak exercise 44.6 mCi of technetium 99m sestamibi was injected stress images were obtained stress and rest images were reconstructed and compared in the short axis vertical long horizontal long axis. Gated images were also obtained Perfusion SPECT analysis: Review of the stress images demonstrate normal uptake of tracer noted in all areas of the myocardium. The resting images similarly demonstrate normal uptake of tracer noted in all areas of the myocardium. No areas of reversibility are noted suggest ischemia no previous infarct is noted. Gated SPECT analysis: The gated ejection fraction is noted to be 62%. Conclusion: Normal exercise myocardial perfusion stress test at a high workload. Preserved ejection fraction. 05/30/18927 <Electronically signed by Ger Palacios MD> Date Ger Palacios MD CC: Luis Enrique Paz MD; Elma Villa MD Date Dictated: 05/30/18925 Date Transcribed: 05/30/18925 Ditcher Operator: CO Signed CBC W/DIFF, AUTOMATED Collected: 05/30/2018 Status: F Source: RYE 5:25 AM [facility] REPOSITORY TYPE CODE TESTS RESULT OUT OF RANGE REFERENCE UNITS LAB L100.1000 4.4-11.0 K/mm3 Normal WBC 6.2 LAB L100.1200 4.6-6.2 M/mm3 Low RBC 4.36 LAB L100.1300 13.0-16.5 g/dl Normal HGB 14.7 LAB L100.1400 40-54 % Normal HCT 43.5 LAB L100.1500 80-94 fL High MCV 99.8 LAB L100.1600 27.0-32.0 pg High MCH 33.7 LAB L100.1700 32-36 g/gl Normal MCHC 33.8 LAB L100.1810 11.6-14.6 % Normal RDW CV 14.4 LAB L100.1820 35.1-43.9 fl High RDW SD 52.5 LAB L100.1900 150-450 K/mm3 Normal PLT 187 LAB L100.2000 6.2-12.0 fl Normal MPV 10.0 LAB L100.2100 47-70 % Normal NEUT% 49.0 LAB L100.2200 19-41 % Normal LY% 39.1 LAB L100.2300 0-10 % High MONO% 10.7 LAB L100.2400 0-5 % Normal EO% 0.8 LAB L100.2500 0-1 % Normal BASO% 0.2 LAB L100.2550 0.0-0.9 % Normal IM GRAN % 0.200 Result Comment: IG% - Immature Granulocytes (promyelocytes, myelocytes and metamyelocytes) > 1% indicates that a LEFT SHIFT is Present. LAB L100.2620 2.0-7.7 X10 3/uL Normal Absolute Neut 3.1 LAB L100.2720 0.83-4.51 X10 3/ul Normal Absolute Lymph 2.44 Performed By: #### L100.0100 #### [facility] [address] [place], [address] BASIC METABOLIC Collected: 05/30/2018 Status: F Source: RYE PROFILE ([facility]) 5:25 AM [facility] REPOSITORY TYPE CODE TESTS RESULT OUT OF RANGE REFERENCE UNITS LAB L501.0100 74-106 mg/dL Normal GLU 92 Result Comment: Please note revised GLUCOSE reference range effective 2017. LAB L501.1000 7-18 mg/dL Normal BUN 12 LAB L501.1100 0.70-1.30 mg/dL Normal CREAT,SERUM 0.95 Result Comment: The validity of the calculated GFR AND GFRAA in patients over 70 years has not been determined. Clinical correlation is essential. LAB L501.1110 >60 mL/min Normal EST GFR 92 Result Comment: Non- GFR Calc LAB L501.1115 >60 mL/min Normal EST GFR - AA 111 Result Comment: GFR Calc LAB L501.1255 ml/min Normal Estimated CRCL 103.52 LAB L501.1300 10-20 RATIO BUN/CRE Normal 12.7 LAB L501.2200 8.5-10 mg/dL Low .1 CA 8.4 LAB L501.5300 136-14 mmol/L 5 NA Normal 141 LAB L501.5600 3.5-5. mmol/L Low 1 K 3.4 LAB L501.5900 98-107 mmol/L High CL 108 LAB L501.6100 21.0-3 mmol/L 2.0 CO2 Normal 27.0 LAB L501.6200 5-15 GAP Normal 6 Performed By: #### L500.2500 #### [facility] [address] [place], [address] PROTHROMBIN TIME W/INR Collected: 05/30/2018 Status: F Source: RYE 5:25 AM [facility] REPOSITORY TYPE CODE TESTS RESULT OUT OF RANGE REFERENCE UNITS LAB L300.4150 11.7-14.9 SECONDS Normal PROTIME 14.2 LAB L300.4200 Normal INR 1.1 Performed By: #### L300.3900, L300.4310 #### [facility] [address] [facility] [place], [address] PARTIAL THROMBOPLAST Collected: 05/30/2018 Status: F Source: RYE TIME 5:25 AM [facility] REPOSITORY TYPE CODE TESTS RESULT OUT OF RANGE REFERENCE UNITS LAB L300.4310 24.1-36.2 Seconds Normal PTT 26.0 Performed By: #### L300.3900, L300.4310 #### [facility] [address] [facility] [place], [address] HISTORY AND PHYSICAL Observed: 05/29/2018 Status: F Source: RYE EXAM 7:41 PM [facility] REPOSITORY [facility] Medical Records Department [address] [place] [address] History and Physical 05/29/18 1543 MR#: [id number] Acct: [id number] Name: SHAYNA DENNY Rep #: [id number] : 1975 42 From: Carolee Silva [employer] PCP: Luis Enrique Paz MD Status: ADM IN Location: [place] [id number] ADDENDUM by Daniel Bueno DO on 05/29/18 at 1941 Code Visit Seen and examined today independently of Carolee Silva, he came to the emergency room today after being sent in to the emergency room at [facility] by his PCP when he complained of left-sided chest pain which she describes as a pressure and radiating into his back. The pain first started yesterday after work. Patient states he became sweaty and nauseated. Workup in the emergency room included an EKG which showed no evidence of ischemic changes, patient's lab work including troponin were unremarkable. Physical exam: On examination he appeared in good health and spirits. Vital signs as documented. Skin warm and dry and without overt rashes. Neck without JVD. Lungs clear. Heart exam notable for regular rhythm, normal sounds and absence of murmurs, rubs or gallops. Abdomen unremarkable and without evidence of organomegaly, masses, or abdominal aortic enlargement. Extremities nonedematous. Neuro: Cranial nerves II through XII are grossly intact, no focal motor deficits were noted. Psych: Patient is alert and oriented x3, he does not appear anxious or depressed Patient will be placed in observation status on PCU, cardiac enzymes will be cycled, if these remain normal, he will undergo an exercise nuclear stress test tomorrow. I have reviewed Carolee Silva's history and physical and medical plan of care and endorse it. OBSV E AND M: [id number] Initial observation care L3 05/29/181940 <Electronically signed by Daniel Bueno DO> Date Daniel Bueno DO cc: KYLAH Silva; Luis Enrique Paz MD; Daniel Bueno DO * Signed Problem List (1) Hypertension Status: Chronic History of Present Illness Date of Admission: 05/29/18 Chief Complaint: Chest pain. The patient is a 42 year old M who presents to the emergency room due to chest pain. Patient states he was resting when this initially occurred. Denies associated shortness of breath, diaphoresis, dizziness, lightheadedness. Patient reports pain on the left side of his chest. Denies pain radiation although does state he has some tingling sensation to his left arm. He reports history of high blood pressure. He states a third agent was added about a month ago to control his blood pressure. He denies other cardiac history. No history of stress test. Patient reports a significant cardiac history on both sides of his family. Past Medical History Past Medical History (Chronic Problems): Chronic Problems Hypertension (Chronic) Allergies No Known Allergies Allergy (Verified 05/29/18 09:07) Home Medications: Ambulatory Orders Medication Instructions Recorded Atenolol [Tenormin] 25 mg PO DAILY 07/14/13 Losartan Potassium 100 mg PO DAILY 09/10/17 Amlodipine [Norvasc] 5 mg PO DAILY 05/29/18 Surgical History: tonsillectomy, - - Left shoulder scope, knee scope, right ankle scope, cystoscopy with balloon dilation of right ureter and right ureteroscopy/lithotripsy. Lives: Spouse/ Significant Other Smoking Status: Never smoker Alcohol: None Drugs: None - *Family History Maternal History Items: Hypertension Paternal History Items: - - Denies known paternal cardiac history Review of Systems Constitutional: Denies: Chills, Fever, Weight Change HEENT: Denies: Head Aches, Sinus Congestion, Sinus Drainage Cardiovascular: Reports: Chest Pain. Denies: Edema, Light Headedness, Palpitations, Syncope Respiratory: Denies: Cough, Shortness of breath at rest, Sputum production Gastrointestinal: Denies: Abdominal Pain, Nausea, Vomiting Genitourinary: Denies: Dysuria Musculoskeletal: Denies: Joint Pain, Joint Tenderness Skin: Denies: Rash, Wounds Neurological: Denies: Numbness, Tingling, Focal weakness Psychiatric: Denies: Anxiety, Depression, Homicidal Ideations, Suicidal Ideations Hematologic/ Lymphatic: Denies: Easy Bruising, Easy Bleeding VTE Information - Inpt Only VTE Present on Admission: No VTE Mechan Device Prophylaxis: None VTE Pharm Prophylaxis ordered?: No Reason prophylaxis not ordered:: Treatment Not Indicated - Physical Exam General: Alert, Oriented x3, Cooperative HEENT: Atraumatic, PERRLA, EOMI, Normocephalic Neck: Supple, No JVD, Negative Carotid Bruits Lungs: Clear to auscultation, Normal air movement Cardiovascular: Regular rate, Regular Rhythm, Normal S1, Normal S2, No murmurs Abdomen: Bowel Sounds Present, Soft, Non Tender, Non-Distended Extremities: No edema, Capillary Refill Less than 3 Seconds Skin: No rashes, No breakdown Musculoskeletal: No Tenderness to Palpation of Joints or Extremities Neurological: Cranial nerves II-XII grossly intact, Neuro grossly intact Psych/Mental Status: Normal Affect, Appropriate Vital Signs Temp Pulse Resp BP Pulse Ox 97.8 F 46 L 18 118/74 100 05/29/18 12:32 05/29/18 14:56 05/29/18 12:32 05/29/18 12:32 05/29/18 12:32 Oxygen Flow Rate (L/min) 2 Oxygen Delivery Method Room Air Weight: 229 lb 0.964 oz Body Mass Index (BMI) 32.8 Laboratory Tests Past 24 Hrs WBC RBC Hgb Hct MCV MCH MCHC RDW RDW Differential Plt Count MPV Immature Gran % (Auto) Assessment/Plan 1. Chest pain-troponin negative x1. EKG without acute changes. Chest x-ray shows mild cardiomegaly. Trend enzymes. Stress test in a.m. 2. Hypertension-stable, continue home amlodipine, losartan and atenolol. 3. Bradycardia-heart rate 40-50s. Monitor telemetry. Suspect secondary to beta-[place] regimen. DVT prophylaxis-not indicated due to low risk. Encourage early ambulation. This patient was seen by KYLAH Cobb under the supervision of Dr. Bueno. 05/29/18 1555 <Electronically signed by Carolee MONTERO> Date Carolee MONTERO 05/29/18 193<Electronically signed by Daniel Bueno DO> Cosigner Signature: Date (if applicable) Daniel Bueno DO CC: KYLAH Silva; Luis Enrique Paz MD; Daniel Bueno DO Signed TROPONIN-I Collected: 05/29/2018 Status: F Source: NA 3:32 PM [facility] REPOSITORY Order Comment: 'TROP' Serial specimen #1, #2 or #3: 3 TYPE CODE TESTS RESULT OUT OF RANGE REFERENCE UNITS LAB L501.4010 <0.045 ng/mL Normal < 0.015 TROPONIN-I Result Comment: TROPONIN-I EXPECTED VALUES <0.045 Negative 0.045 - 0.590 Consistent with Cardiac Damage > OR = 0.600 Critical Value Not every elevated troponin is indicative of GA. These values should be used with clinical judgement in examining the patient's clinical picture for diagnosis. To establish a diagnosis of GA versus myocardial injury, there must be a demonstrated rise and/or fall in the troponin values, in addition to ischemic symptoms, EKG changes, new regional wall motion abnormality, and/or angiographical evidence. PLEASE NOTE: REFERENCE RANGES EDITED 17 Performed By: #### L501.4010 #### [facility] [address] [facility] [place], [address] TROPONIN-I Collected: 05/29/2018 Status: F Source: RYE 12:30 PM [facility] REPOSITORY Order Comment: 'TROP' Serial specimen #1, #2 or #3: 2 TYPE CODE TESTS RESULT OUT OF RANGE REFERENCE UNITS LAB L501.4010 <0.045 ng/mL Normal < 0.015 TROPONIN-I Result Comment: TROPONIN-I EXPECTED VALUES <0.045 Negative 0.045 - 0.590 Consistent with Cardiac Damage > OR = 0.600 Critical Value Not every elevated troponin is indicative of GA. These values should be used with clinical judgement in examining the patient's clinical picture for diagnosis. To establish a diagnosis of GA versus myocardial injury, there must be a demonstrated rise and/or fall in the troponin values, in addition to ischemic symptoms, EKG changes, new regional wall motion abnormality, and/or angiographical evidence. PLEASE NOTE: REFERENCE RANGES EDITED 17 Performed By: #### L501.4010 #### [facility] [address] [facility] [place], [address] EMERGENCY DEPARTMENT Observed: 05/29/2018 Status: F Source: RYE SUMMARY 10:26 AM [facility] REPOSITORY [facility] Medical Records Department [address] [place] [address] Emergency Department Summary 05/29/18 1021 MR#: [id number] Acct: [id number] Name: SHAYNA DENNY Rep #: [id number] : 1975 42 From: Salomón Landry MD PCP: Luis Enrique Paz MD Status: REG ER - ER Visit Summary Date of Service: 05/29/18 Chief Complaint: Chest tightness/pressure left pectoral region History of Present Illness: The patient is a 42 M who presents from doctor's office. An appointment to be seen. When he informed his PCP that he had left-sided pressure/tightness with nausea dyspnea he was instructed to report to the emergency department. Patient states yesterday after he got home from work. He was sitting in a chair when he developed a pressure type sensation left pectoral area with radiation to the central upper back associated with diaphoresis and dyspnea. He reports no alleviating, precipitating or exacerbating factors. He has not stressed himself since the onset. There are no steps at his house. He did not do anything strenuous. He denies history of hematemesis, melena hematochezia. He denies history of GERD, reflux or hiatal hernia. There is a strong maternal family history of heart disease. His only risk factor is hypertension for 5-7 years. He denies neck pain, paresthesia, anesthesia upper lower extremity. He denies ocular, visual auditory symptoms. He states he took ibuprofen with no effect. Physical Examination: Vital signs noted and blood pressure is elevated 151/93. Heart rates 58. Head is atraumatic normocephalic. Pupils are equal round reactive. Extraocular muscles are intact. TMs are pearly white with landmarks noted. Nares patent with no drainage. Posterior pharynx without erythema or exudate. Uvula is midline. There is no dysphonia or dysphasia. Trachea is midline. There is no stridor with auscultation of the neck. Heart is regular without murmur, gallop or rub. S1 and S2 are normal. Lungs are clear to auscultation with good movement of air bilaterally. There is no reproducible chest pain. Abdomen is soft nontender with no paraspinal megaly. There is no asymmetry, swelling, discoloration, leg vein distention, palpable cords or tenderness along the distribution of the deep venous system. Neuro exam is nonfocal. Test Results: EKG was obtained and reveals a sinus bradycardia rate of 51 with evidence of LVH by voltage criteria and decreased anterior force. Portable chest x-ray reveals normal cardiac silhouette, mediastinum and lung parenchyma. CBC reveals an MCV of 99.8 otherwise negative. BMP is unremarkable with a glucose of 118. First troponin is less than 0.015. Emergency Department Course and Treatment: Patient was treated with aspirin and nitroglycerin. When he was reassessed at 1020 he reports minimal if any discomfort. He did receive 3 nitroglycerin. Need to evaluate for cardiac versus GI versus pulmonary etiology. D-dimer was not obtained since patient is PERC negative. Treatment Plan: Contact hospitalist for provocative testing Disposition: 23-hour observation PCU Impression: Chest pressure alleviated with nitroglycerin Sinus bradycardia documented on monitor and EKG History of hypertension This note was generated with [email or web address] dictation software. It may contain incorrect words, spelling, and punctuation that were not noted in review of the chart prior to signing ED Disposition - Plan for ED Patient: Chief Complaint: Chest Pain Referrals: Luis Enrique Paz MD [Primary Care Provider] - What to do if you have Problems For any increased pain, shortness of breath, bleeding, nausea or vomiting, chest pain, or any unexpected problems, contact your Primary Care Provider. Call [facility] ([phone]) or report to the closest Emergency Room. Call 911 if necessary. 05/29/18 1026 <Electronically signed by Salomón Landry MD> Date Salomón Landry MD Cosigner Signature (If Indicated): Date CC: Luis Enrique Paz MD CHEST 1 VIEW Observed: 05/29/2018 Status: F Source: RYE (PORTABLE) 9:30 AM [facility] REPOSITORY [facility] Imaging Services [address] [place] [id number] Chest 1 View (Portable) MR#: [id number] Acct: [id number] Name: SHAYNA DENNY Rep #: [id number] : 1975 M 42 From: Drew Arriola MD PCP: Luis Enrique Paz MD Status: REG ER Study: Chest 1 View (Portable) Date of Exam: 05/29/18 Exam# [id number] Ordering Dr: Salomón Landry MD STUDY: X-RAY CHEST REASON FOR EXAM: Male, 42 years old. Left-sided chest pain. TECHNIQUE: Single AP portable view of the chest. COMPARISON: Comparison is made with prior study dated April 24, 2018. FINDINGS: EKG electrodes are seen. The lungs are clear and expanded. There is no demonstrated pleural abnormality. There is mild cardiac enlargement. Normal mediastinum and josefa. Normal visualized pulmonary arteries. There is atherosclerotic tortuosity of the aortic arch and descending thoracic aorta. There are diffuse degenerative changes of the visualized thoracic spine. Normal visualized ribs, clavicles, and shoulders. There is no demonstrated abnormality of the visualized soft tissue structures of the upper abdomen. RAD/Chest 1 View (Portable) IMPRESSION: Mild cardiomegaly. The lungs are clear. Electronically Signed: Drew Arriola MD at 10:05 EST Tel [phone], Service support , CC: Luis Enrique Paz MD; Salomón Landry MD Ditcher Operator: Signed CBC W/DIFF, AUTOMATED Collected: 05/29/2018 Status: F Source: RYE 9:21 AM [facility] REPOSITORY TYPE CODE TESTS RESULT OUT OF RANGE REFERENCE UNITS LAB L100.1000 4.4-11.0 K/mm3 Normal WBC 7.5 LAB L100.1200 4.6-6.2 M/mm3 Normal RBC 4.77 LAB L100.1300 13.0-16.5 g/dl Normal HGB 16.3 LAB L100.1400 40-54 % Normal HCT 47.6 LAB L100.1500 80-94 fL High MCV 99.8 LAB L100.1600 27.0-32.0 pg High MCH 34.2 LAB L100.1700 32-36 g/gl Normal MCHC 34.2 LAB L100.1810 11.6-14.6 % Normal RDW CV 14.5 LAB L100.1820 35.1-43.9 fl High RDW SD 52.9 LAB L100.1900 150-450 K/mm3 Normal PLT 207 LAB L100.2000 6.2-12.0 fl Normal MPV 10.0 LAB L100.2100 47-70 % Normal NEUT% 63.7 LAB L100.2200 19-41 % Normal LY% 24.7 LAB L100.2300 0-10 % High MONO% 11.1 LAB L100.2400 0-5 % Normal EO% 0.3 LAB L100.2500 0-1 % Normal BASO% 0.1 LAB L100.2550 0.0-0.9 % Normal IM GRAN % 0.100 Result Comment: IG% - Immature Granulocytes (promyelocytes, myelocytes and metamyelocytes) > 1% indicates that a LEFT SHIFT is Present. LAB L100.2620 2.0-7.7 X10 3/uL Normal Absolute Neut 4.8 LAB L100.2720 0.83-4.51 X10 3/ul Normal Absolute Lymph 1.85 Performed By: #### L100.0100 #### [facility] [address] [place], [address] BASIC METABOLIC Collected: 05/29/2018 Status: F Source: RYE PROFILE ([facility]) 9:21 AM [facility] REPOSITORY TYPE CODE TESTS RESULT OUT OF RANGE REFERENCE UNITS LAB L501.0100 74-106 mg/dL High GLU 118 Result Comment: Fasting Glucose result from 100 to 125 mg/dL suggests IMPAIRED HOMEOSTASIS per A.D.A. criteria. Please note revised GLUCOSE reference range effective 2017. LAB L501.1000 7-18 mg/dL Normal BUN 12 LAB L501.1100 0.70-1.30 mg/dL Normal CREAT,SERUM 1.18 Result Comment: The validity of the calculated GFR AND GFRAA in patients over 70 years has not been determined. Clinical correlation is essential. LAB L501.1110 >60 mL/min Normal EST GFR 71 Result Comment: Non- GFR Calc LAB L501.1115 >60 mL/min Normal EST GFR - AA 86 Result Comment: GFR Calc LAB L501.1255 ml/min Normal Estimated CRCL 83.35 LAB L501.1300 10-20 RATIO Normal BUN/CRE 10.2 LAB L501.2200 8.5-10 mg/dL Normal .1 CA 9.3 LAB L501.5300 136-14 mmol/L Normal 5 NA 144 LAB L501.5600 3.5-5. mmol/L Normal 1 K 3.6 LAB L501.5900 98-107 mmol/L Normal CL 107 LAB L501.6100 21.0-3 mmol/L Normal 2.0 CO2 27.0 LAB L501.6200 5-15 Normal GAP 10 Performed By: #### L500.2500, L501.4010 #### [facility] [address] [place], [address] TROPONIN-I Collected: 05/29/2018 Status: F Source: RYE 9:21 AM [facility] REPOSITORY TYPE CODE TESTS RESULT OUT OF RANGE REFERENCE UNITS LAB L501.4010 <0.045 ng/mL Normal < 0.015 TROPONIN-I Result Comment: TROPONIN-I EXPECTED VALUES <0.045 Negative 0.045 - 0.590 Consistent with Cardiac Damage > OR = 0.600 Critical Value Not every elevated troponin is indicative of GA. These values should be used with clinical judgement in examining the patient's clinical picture for diagnosis. To establish a diagnosis of GA versus myocardial injury, there must be a demonstrated rise and/or fall in the troponin values, in addition to ischemic symptoms, EKG changes, new regional wall motion abnormality, and/or angiographical evidence. PLEASE NOTE: REFERENCE RANGES EDITED 17 Performed By: #### L500.2500, L501.4010 #### [facility] [address] [place], [address] HEMOGLOBIN A1C Collected: 05/29/2018 Status: F Source: RYE 9:21 AM [facility] REPOSITORY TYPE CODE TESTS RESULT OUT OF RANGE REFERENCE UNITS LAB L501.9985 4.2-6.3 % Normal HGB A1C 5.8 Performed By: #### L501.9985 #### [facility] [address] [place], [address] CHEST PA AND LATERAL Observed: 04/24/2018 Status: F Source: RYE 8:18 AM [facility] REPOSITORY [facility] Imaging Services [address] [place] [address] Chest PA and Lateral MR#: [id number] Acct: [id number] Name: SHAYNA DENNY Rep #: [id number] : 1975 M 42 From: Ryley Dickson MD PCP: Luis Enrique Paz MD Status: REG CLI Study: Chest PA and Lateral Date of Exam: 04/24/18 Exam# [id number] Ordering Dr: Luis Enrique Paz MD STUDY: X-RAY CHEST REASON FOR EXAM: Male, 42 years old. Hemoptysis TECHNIQUE: PA and lateral views of the chest. COMPARISON: None. FINDINGS: The lungs are clear and expanded. There is no demonstrated pleural abnormality. Normal size heart. Normal mediastinum and josefa. Normal visualized pulmonary arteries. Normal visualized aortic arch and descending thoracic aorta. Normal visualized thoracic spine. Normal visualized ribs, clavicles, and shoulders. There is no demonstrated abnormality of the visualized soft tissue structures of the upper abdomen. RAD/Chest PA and Lateral IMPRESSION: Normal x-ray examination of the chest. Electronically Signed: Ryley Dickson MD at 17:14 EDT , Service support , CC: Luis Enrique Paz MD Ditcher Operator: Signed CBC W/DIFF, AUTOMATED Collected: 03/01/2018 Status: F Source: NA 11:40 AM [facility] REPOSITORY Order Comment: Order Date: 03/01/18 Order Info: 0184-1 - CBCD TYPE CODE TESTS RESULT OUT OF RANGE REFERENCE UNITS LAB L100.1000 4.4-11.0 K/mm3 Normal WBC 6.4 LAB L100.1200 4.6-6.2 M/mm3 Normal RBC 4.60 LAB L100.1300 13.0-16.5 g/dl Normal HGB 15.7 LAB L100.1400 40-54 % Normal HCT 46.4 LAB L100.1500 80-94 fL High MCV 100.9 LAB L100.1600 27.0-32.0 pg High MCH 34.1 LAB L100.1700 32-36 g/gl Normal MCHC 33.8 LAB L100.1810 11.6-14.6 % High RDW CV 14.7 LAB L100.1820 35.1-43.9 fl High RDW SD 54.0 LAB L100.1900 150-450 K/mm3 Normal PLT 210 LAB L100.2000 6.2-12.0 fl Normal MPV 11.2 LAB L100.2100 47-70 % Normal NEUT% 55.0 LAB L100.2200 19-41 % Normal LY% 30.2 LAB L100.2300 0-10 % High MONO% 13.0 LAB L100.2400 0-5 % Normal EO% 1.4 LAB L100.2500 0-1 % Normal BASO% 0.2 LAB L100.2550 0.0-0.9 % Normal IM GRAN % 0.200 Result Comment: IG% - Immature Granulocytes (promyelocytes, myelocytes and metamyelocytes) > 1% indicates that a LEFT SHIFT is Present. LAB L100.2620 2.0-7.7 X10 3/uL Normal Absolute Neut 3.5 LAB L100.2720 0.83-4.51 X10 3/ul Normal Absolute Lymph 1.93 Performed By: #### L100.0100, L500.4050, L501.1400 #### [facility] [address] [place], [place], [address] COMPREHENSIVE METABOLIC Collected: 03/01/2018 Status: F Source: NA [place] 11:40 AM [facility] REPOSITORY Order Comment: Order Date: 03/01/18 Order Info: [id number] - CMP Order Info: 3084-1 - URIC TYPE CODE TESTS RESULT OUT OF RANGE REFERENCE UNITS LAB L501.0100 74-106 mg/dL Normal GLU 92 Result Comment: Please note revised GLUCOSE reference range effective 2017. LAB L501.1000 7-18 mg/dL Normal BUN 14 LAB L501.1100 0.70-1.30 mg/dL Normal CREAT,SERUM 1.25 Result Comment: The validity of the calculated GFR AND GFRAA in patients over 70 years has not been determined. Clinical correlation is essential. LAB L501.1110 >60 mL/min Normal EST GFR 67 Result Comment: Non- GFR Calc LAB L501.1115 >60 mL/min Normal EST GFR - AA 81 Result Comment: GFR Calc LAB L501.1300 10-20 RATIO Normal BUN/CRE 11.2 LAB L501.1500 6.4-8.2 g/dL T Normal PROT 7.6 LAB L501.1800 3.2-5.0 g/dL Normal ALB 3.7 LAB L501.1950 2.2-4.2 g/dL Normal GLOB 3.9 LAB L501.2000 0.9-2.4 RATIO Normal A/G 0.9 LAB L501.2200 8.5-10.1 mg/dL CA Normal 9.1 LAB L501.4100 15-37 U/L Normal AST 28 LAB L501.4305 45-117 U/L Normal ALK P 68 LAB L501.4405 16-61 U/L Normal ALT 49 LAB L501.4600 0.20-1.00 mg/dL T Normal BILI 0.40 LAB L501.5300 136-145 mmol/L NA Normal 143 LAB L501.5600 3.5-5.1 mmol/L K Normal 4.1 LAB L501.5900 98-107 mmol/L High CL 108 LAB L501.6100 21.0-32.0 mmol/L Normal CO2 27.0 LAB L501.6200 5-15 Normal GAP 8 Performed By: #### L100.0100, L500.4050, L501.1400 #### [facility] [address] [place], [address] URIC ACID Collected: 03/01/2018 Status: F Source: RYE 11:40 AM [facility] REPOSITORY Order Comment: Order Date: 03/01/18 Order Info: [id number] - CMP Order Info: 3084-1 - URIC TYPE CODE TESTS RESULT OUT OF RANGE REFERENCE UNITS LAB L501.1400 3.5-7.2 mg/dL Normal URIC 6.7 Result Comment: The drugs N-Acetylcysteine and Metamizole may falsely depress this assay. Performed By: #### L100.0100, L500.4050, L501.1400 #### [facility] [address] [place], [place], [address] CBC W/DIFF, AUTOMATED Collected: 11/10/2017 Status: F Source: RYE 8:05 AM [facility] REPOSITORY TYPE CODE TESTS RESULT OUT OF RANGE REFERENCE UNITS LAB L100.1000 4.4-11.0 K/mm3 Normal WBC 6.1 LAB L100.1200 4.6-6.2 M/mm3 Normal RBC 4.76 LAB L100.1300 13.0-16.5 g/dl Normal HGB 16.0 LAB L100.1400 40-54 % Normal HCT 46.6 LAB L100.1500 80-94 fL High MCV 97.9 LAB L100.1600 27.0-32.0 pg High MCH 33.6 LAB L100.1700 32-36 g/gl Normal MCHC 34.3 LAB L100.1810 11.6-14.6 % Normal RDW CV 14.3 LAB L100.1820 35.1-43.9 fl High RDW SD 50.5 LAB L100.1900 150-450 K/mm3 Normal PLT 195 LAB L100.2000 6.2-12.0 fl Normal MPV 11.0 LAB L100.2100 47-70 % Low NEUT% 43.7 LAB L100.2200 19-41 % Normal LY% 38.8 LAB L100.2300 0-10 % High MONO% 15.5 LAB L100.2400 0-5 % Normal EO% 1.7 LAB L100.2500 0-1 % Normal BASO% 0.3 LAB L100.2550 0.0-0.9 % Normal IM GRAN % 0.000 Result Comment: IG% - Immature Granulocytes (promyelocytes, myelocytes and metamyelocytes) > 1% indicates that a LEFT SHIFT is Present. LAB L100.2620 2.0-7.7 X10 3/uL Normal Absolute Neut 2.6 LAB L100.2720 0.83-4.51 X10 3/ul Normal Absolute Lymph 2.35 Performed By: #### L100.0100 #### [facility] [address] [place], [address] COMPREHENSIVE METABOLIC Collected: 11/10/2017 Status: F Source: NA [place] 8:05 AM [facility] REPOSITORY TYPE CODE TESTS RESULT OUT OF RANGE REFERENCE UNITS LAB L501.0100 74-106 mg/dL Normal GLU 87 Result Comment: Please note revised GLUCOSE reference range effective 2017. LAB L501.1000 7-18 mg/dL Normal BUN 13 LAB L501.1100 0.70-1.30 mg/dL Normal CREAT,SERUM 1.05 Result Comment: The validity of the calculated GFR AND GFRAA in patients over 70 years has not been determined. Clinical correlation is essential. LAB L501.1110 >60 mL/min Normal EST GFR 82 Result Comment: Non- GFR Calc LAB L501.1115 >60 mL/min Normal EST GFR - AA 99 Result Comment: GFR Calc LAB L501.1300 10-20 RATIO Normal BUN/CRE 12.4 LAB L501.1500 6.4-8.2 g/dL T Normal PROT 7.5 LAB L501.1800 3.2-5.0 g/dL Normal ALB 3.7 LAB L501.1950 2.2-4.2 g/dL Normal GLOB 3.8 LAB L501.2000 0.9-2.4 RATIO Normal A/G 1.0 LAB L501.2200 8.5-10.1 mg/dL CA Normal 8.8 LAB L501.4100 15-37 U/L Normal AST 23 Result Comment: Slight Hemolysis, Result may be falsely increased. LAB L501.4305 45-117 U/L Normal ALK P 70 LAB L501.4405 16-61 U/L Normal ALT 38 LAB L501.4600 0.20-1.00 mg/dL Normal T BILI 0.50 LAB L501.5300 136-145 mmol/L Normal NA 142 LAB L501.5600 3.5-5.1 mmol/L Normal K 3.7 Result Comment: Slight Hemolysis, Result may be falsely increased. LAB L501.5900 98-107 mmol/L High CL 108 LAB L501.6100 21.0-32.0 mmol/L Normal CO2 26.0 LAB L501.6200 5-15 Normal 8 GAP Performed By: #### L500.4050, L500.4100, L501.1400, L501.9520 #### [facility] [address] [place], [place], [address] LIPID PROFILE Collected: 11/10/2017 Status: F Source: NA 8:05 AM [facility] REPOSITORY TYPE CODE TESTS RESULT OUT OF RANGE REFERENCE UNITS LAB L501.4900 200 mg/dL Normal CHOL 133 Result Comment: <200 mg/dL Desirable 200-240 mg/dL Borderline >240 mg/dL High Risk LAB L501.5000 mg/dL Normal TRIG 121 Result Comment: The drugs N-Acetylcysteine and Metamizole may falsely depress this assay. Serum Triglycerides Reference Interval Normal <150 mg/dL Borderline high 150 - 199 mg/dL High 200 - 499 mg/dL Very High > or = 500 mg/dL LAB L501.6400 mg/dL Low HDL 27 Result Comment: The drugs N-Acetylcysteine and Metamizole may falsely depress this assay. Reference Range HDL <40 mg/dL Low HDL Cholesterol HDL >or= 60 mg/dL High HDL Cholesterol LAB L501.6500 0-130 mg/dL Normal LDL 82 LAB L501.6600 5-40 mg/dL Normal VLDL 24 Performed By: #### L500.4050, L500.4100, L501.1400, L501.9520 #### [facility] [address] [place], [place], [address] URIC ACID Collected: 11/10/2017 Status: F Source: RYE 8:05 AM [facility] REPOSITORY TYPE CODE TESTS RESULT OUT OF RANGE REFERENCE UNITS LAB L501.1400 3.5-7.2 mg/dL High URIC 8.5 Result Comment: The drugs N-Acetylcysteine and Metamizole may falsely depress this assay. Performed By: #### L500.4050, L500.4100, L501.1400, L501.9520 #### [facility] [address] [place], [place], [address] THYROID STIM HORMONE Collected: 11/10/2017 Status: F Source: NA (TSH) 8:05 AM [facility] REPOSITORY TYPE CODE TESTS RESULT OUT OF RANGE REFERENCE UNITS LAB L501.9520 0.358-3.74 uIU/mL Normal TSH 1.91 Performed By: #### L500.4050, L500.4100, L501.1400, L501.9520 #### [facility] [address] [place], [address] URINALYSIS, COMPLETE Collected: 11/10/2017 Status: F Source: RYE 8:05 AM [facility] REPOSITORY Order Comment: How was Urine Obtained? CLEAN CATCH TYPE CODE TESTS RESULT OUT OF RANGE REFERENCE UNITS LAB L400.3000 Yellow COLOR Normal Yellow LAB L400.3050 Clear Normal CLARITY Clear LAB L400.3200 Normal mg/dl Normal GLUCOSE, UR Normal LAB L400.3300 Negative mg/dL Normal BILIRUBIN URINE Negative LAB L400.3400 Negative mg/dl Normal KETONE UR Negative LAB L400.3465 1.002-1.030 Normal SP.GR. DIPSTX 1.020 LAB L400.3550 5.0 - 8.0 pH UR Normal 6.0 LAB L400.3600 Negative mg/dl PROT Normal DIPSTX Negative LAB L400.3700 Normal mg/dl Normal UROBILI Normal LAB L400.3750 Negative Normal NITRITE UR Negative LAB L400.3780 Negative /ul Normal OCCULT BLOOD-UR Negative LAB L400.3800 Negative /ul LEUK Normal ESTERASE Negative LAB L400.4050 0-5 /hpf WBC 0 Normal SEEN LAB L400.4100 0-5 /hpf Normal RBC-UA 0-5 SEEN LAB L400.4150 0-5 /hpf SQUAM Normal EPI 0-5 SEEN LAB L400.4300 None Seen /hpf 0 Normal BACTERIA SEEN LAB L400.4350 <or=2+ /hpf Normal MUCUS, URINE RARE Performed By: #### L400.0001 #### [facility] [address] [facility] [place], [address] EMERGENCY DEPARTMENT Observed: 09/10/2017 Status: F Source: RYE SUMMARY 6:35 AM [facility] REPOSITORY [facility] Medical Records Department [address] [place] [address] Emergency Department Summary 09/10/17 0055 MR#: [id number] Acct: [id number] Name: SHAYNA DENNY Rep #: [id number] : 1975 42 From: Kobi Davis MD PCP: Kobi Mg MD Status: DEP ER - ER Visit Summary Date of Service: 09/10/17 Chief Complaint: Atraumatic right ankle pain History of Present Illness: The patient is a 42 M cup Monday morning with atraumatic right ankle pain. Denies any recent falls or trauma. No fever. He has had a history of gout in his left great toe before is never had his ankle. No history of DVT or PE. No calf swelling. No recent travel, surgery or mobilization. He denies knee or hip pain. No other complaints. Physical Examination: Well-appearing middle-age male. Vital signs are stable afebrile. H EENT exam unremarkable. Lungs clear to auscultation bilaterally. Heart regular rate and rhythm no murmur. Abdomen soft nontender. He is moving all 4 extremities are neurovascular intact. His right hip and right knee are nontender with normal range of motion in the swelling. The right ankle is swollen primarily laterally. Is mildly tender. His Achilles tendon is intact. There are no bony deformities. It is not red it is not hot. There is no signs of septic joint. He has a strong DP pulse. His right foot is nontender without deformity neurovascularly intact. The right calf is nontender without cords or edema. There is no lymphangitic streaking. Neurologic exam is normal. Test Results: Right ankle x-ray showed no acute process other than soft tissue swelling. Read both by myself and the radiologist. Emergency Department Course and Treatment: Repeat exam patient is doing well at 00 55. Clinically I think this is early gout. He will be started on prednisone. First dose in the ER and and 40 mg a day for 10 days. Motrin and Wheeler for pain. Nonweightbearing. He has crutches at home. Follow-up his primary care physician if not improving or return to the ER if worse. Treatment Plan: Prednisone treated for gout. Disposition: Discharge Impression: Acute atraumatic right ankle pain and swelling secondary to gout This note was generated with [employer] dictation software. It may contain incorrect words, spelling, and punctuation that were not noted in review of the chart prior to signing ED Disposition - Plan for ED Patient: Chief Complaint: Lower Extremity Injury Referrals: Kobi Mg MD [Primary Care Provider] - What to do if you have Problems For any increased pain, shortness of breath, bleeding, nausea or vomiting, chest pain, or any unexpected problems, contact your Primary Care Provider. Call [employer] [facility] ([phone]) or report to the closest Emergency Room. Call 911 if necessary. 09/10/17 0635 <Electronically signed by Kobi Davis MD> Date Kobi Davis MD Cosigner Signature (If Indicated): Date CC: Kobi Mg MD DISCHARGE INSTRUCTION Observed: 09/10/2017 Status: F Source: [place] 6:35 AM [facility] REPOSITORY [facility] Medical Records Department [address] [place] [address] Discharge Instruction 09/10/17 0057 MR#: [id number] Acct: [id number] Name: SHAYNA DENNY Rep #: [id number] : 1975 42 From: Kobi Davis MD PCP: Kobi Mg MD Status: DEP ER ED Disposition - Plan for ED Patient: Disposition: Home or Assisted Living Chief Complaint: Lower Extremity Injury Instructions: ED Arthritis Gout Prescriptions: Hydrocodone/Acetaminophen [Wheeler 5-325 Tablet] 1 ea PO Q4H PRN PRN #20 tab PRN Reason: Pain Prednisone [Deltasone] 40 mg PO DAILY 10 Days tab Referrals: Kobi Mg MD [Primary Care Provider] - 3-5 Days if not improving Additional Instructions: Prednisone daily for gallop. No weightbearing until swelling and pain are much better. Wheeler and Motrin for pain. Do not drive while using the Wheeler. Plenty of fluids and fiber to prevent constipation. Return if fever or looks a lot worse. Clinically however this is not an infection and is consistent with gout What to do if you have Problems For any increased pain, shortness of breath, bleeding, nausea or vomiting, chest pain, or any unexpected problems, contact your Primary Care Provider. Call [facility] ([phone]) or report to the closest Emergency Room. Call 911 if necessary. 09/10/17 0635 <Electronically signed by Kobi Davis MD> Date Kobi Davis MD Cosigner Signature (If Indicated): Date CC: Kobi Mg MD ANKLE MIN 3 VIEWS Observed: 09/10/2017 Status: F Source: [place] 12:13 AM [facility] REPOSITORY [facility] Imaging Services [address] [place] [address] Ankle min 3 Views MR#: [id number] Acct: [id number] Name: SHAYNA DENNY Rep #: [id number] : 1975 M 42 From: Jono Bosch PCP: Kobi Mg MD Status: REG ER Study: Ankle min 3 Views Date of Exam: 09/10/17 Exam# [id number] Ordering Dr: Kobi Davis MD STUDY: X-RAY - RIGHT ANKLE REASON FOR EXAM: Male, 42 years old. Pain, no known injury. TECHNIQUE: 3 view(s) of the ankle. COMPARISON: None. FINDINGS: Faint densities distal to the medial malleolus the largest measuring 0.3 cm compatible with small avulsion fractures age indeterminate. Distal fibula is normal. . Normal tibiotalar articulation and ankle mortise. Normal visualized talus and calcaneus. The visualized subtalar, talonavicular, calcaneocuboid and tarsal articulations are normal. Mild soft tissue swelling adjacent to the lateral malleolus. RAD/Ankle min 3 Views IMPRESSION: Mild soft tissue swelling lateral ankle. Small avulsion fractures medial malleolus age indeterminate. These may represent old injuries. Electronically Signed: Jono Bosch MD at 0:41 EST , Service support , CC: Kobi Mg MD; Kobi Davis MD Ditcher Operator: Signed OBSOLETE Observed: 06/21/2017 Status: COMPLETED Source: [place] 12:00 AM [facility] REPOSITORY Refill (FAMPWS) SHAYNA DENNY ([id number]) 1975 M Date Time Provider Department 06/21/17 GAURANG MG FAMPWS During your visit today, we recorded the following information about you: Radha Taveras Psr 06/21/2017 8:17 AM Signed Patient has been identified by name and date of : Yes RX INSTRUCTIONS: Patient aware RX will be sent to pharmacy. No need to notify patient. Radha Luir Jessica Mccullough Cma 06/21/2017 10:00 AM Signed Patient has been identified by name and date of : Yes RX INSTRUCTIONS: Patient aware RX will be sent to pharmacy. No need to notify patient. Last visit 05/15 No future visit Last filled Zoloft 08/11 30 with 5 Jessica Mg MD 06/21/2017 11:29 AM Signed The following approved medication requests have been transmitted electronically. Signed Prescriptions Disp Refills sertraline (ZOLOFT) 50 mg tablet 30 tablet 5 Sig: Take 1 tablet by mouth once daily. KEENA: No Authorizing Provider: GAURANG MG MD Allergies As of Date: 06/21/2017 Noted Allergy Reaction ENVIROMENTAL [Other] 03/01/2005 MOLDS [Other] 03/01/2005 RAGWEED 03/01/2005 Date Reviewed: 05/04/2017 Reviewed by: Beata Garner LPN - Fully Assessed Reason for Visit: Refill Request [94] Reason For Visit History Recorded Visit Diagnoses:Essential hypertension [I10] Minor depression [F32.9] Order(s):sertraline (ZOLOFT) 50 mg tabletTake 1 tablet by mouth once daily.Disp: 30 tabletRfl: 5 Prescriptions as of 06/21/2017 Sig: SERTRALINE 50 MG TABLET Take 1 tablet by mouth once d* LOSARTAN 100 MG TABLET Take 1 tablet by mouth once d* ATENOLOL 50 MG TABLET Take 1 tablet by mouth once d* BLOOD PRESSURE TEST KIT-LARGE* Blood pressure check weekly a* MULTI VITAMIN ORAL Take by mouth once daily. 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 Medications Discontinued During This Encounter sertraline (ZOLOFT) 50 mg tablet 30 t* 5 08/11/2016 06/21/2017 Route: ORAL Sig: Take 1 tablet by mouth once daily. Disc: Reason for discontinue is not on file. Encounter Status:Closed by ERICK GOMEZ MA on 06/21/17 ALLERGIES ALLERGIES DATE TYPE / CODE NAME / CODE REACTION SEVERITY SOURCE 05/29/2018 Drug No Known Unknown [facility] Allergy/4160 Allergies/F00 [facility] 48509(SNOMED [id number](RXNOR Repository CT) M) ENCOUNTERS ENCOUNTERS ADMIT/DISCHARGE ACCOUNT ADMITTING ENCOUNTER LOCATION SOURCE NUMBER CLASS 05/30/2018 [id number] Ambulatory BMSBuilding:W Na 7 [facility] Repository 05/29/2018/ [id number] [place], Ambulatory Na [place] 8 4 Daniel [facility] ing:PCURoom: Repository [id number]: 1 05/29/2018 [id number] [place], Ambulatory BMSBuilding:B [place] 3 [facility] 05/29/2018 [id number] [place], Ambulatory BMSBuilding:B Na 6 [facility] 04/24/2018 [id number] Ambulatory Na [place] 0 [facility] ing:HPRAD Repository 03/01/2018 [id number] Ambulatory Na [place] 0 [facility] ing:MFPLAB Repository 11/16/2017 [id number] Ambulatory [place] Na 8 [facility] ing:LAB.FUTUR Repository E 11/10/2017 [id number] Ambulatory [place] Na 4 [facility] ing:MFPLAB Repository 09/09/2017/ [id number] Emergency Na Na 8 1 [facility] ing:ED Repository PAYERS PAYERS ENCOUNTER GUARANTOR PAYER SUBSCRIBER SOURCE 05/30/2018 SHAYNA N Primary SHAYNA N Na [id number] [place] Insurance:CIGNAPolicy MILLSDOB: [place], [place] Number: [id number] [address]Nmo: (330 [id number] Repository () Date:4013-28-30[address] [address]BI: 05/30/2018 Secondary NOT GIVENUNK Na Insurance:SELF PAY [facility] Number: Effective Repository Date:2018-05-30 05/29/2018 SHAYNA N Primary SHAYNA N [place] [id number] [place] Insurance:CIGNAPolicy [place]ILLWIOB: [place], [place] Number: [id number] [facility] [address]Vay: (330 [id number] Repository 616 (HP) Date:6207-07-11[address] [address]PH: 05/29/2018 Secondary NOT GIVENUNK Na Insurance:SELF PAY [facility] Effective Repository Date:2018-05-29 05/29/2018 SHAYNA N Primary SHAYNA N Na [id number] [place] Insurance:CIGNAPolicy [place]OB[facility] [place] Number: [id number] [facility] [address]Wce: (330 [id number] Repository [phone] (HP) Date:3396-35-02[address], [place] [address]KI: 05/29/2018 Secondary NOT GIVENUNK Na Insurance:SELF PAY [facility] Number: Effective Repository Date:2018-05-29 05/29/2018 SHAYNA N Primary SHAYNA N [place] [id number] [place] Insurance:CIGNAPolicy MILLSDOB: [facility], [place] Number: [id number] Hospital [address]Xko: (330) [id number] Repository [phone] (HP) Date:3649-21-83[address]SYHKVPO[address]J, [place] [address]UC: 05/29/2018 Secondary NOT GIVENUNK Na Insurance:SELF PAY [facility] Number: Effective Repository Date:2018-05-29 04/24/2018 SHAYNA N Primary SHAYNA N Na [id number] [place] Insurance:CIGNAPolicy [place]ILLSDOB: [facility] Number: [id number] Hospital [address]Wwf: (330) [id number] Repository [phone] (HP) Date:7458-73-11[address], [place] [address]QL: 04/24/2018 Secondary NOT GIVENUNK [place] Insurance:SELF PAY [facility] Number: Effective Repository Date:2018-04-24 03/01/2018 SHAYNA N Primary SHAYNA N [place] [id number] [place] Insurance:CIGNAPolicy MILLSDOB: [facility] Number: [id number] Hospital [address]Gbl: (330) [id number] Repository 317 (HP) Date:7439-31-38[address] [address]ZM: 03/01/2018 Secondary NOT GIVENUNK [place] Insurance:SELF PAY [facility]: Effective Repository Date:2018-03-01 11/16/2017 SHAYNA N Primary SHAYNA N [place] [id number] [place] Insurance:CIGNAPolicy MILLSDOB: [facility] [place] Number: [id number] Hospital [address]Epe: (330) [id number] Repository 317 (HP) Date:6850-31-55[address] [address]IY: 11/16/2017 Secondary NOT GIVENUNK [place] Insurance:SELF PAY [facility] Number: Effective Repository Date:2017-11-16 11/10/2017 SHAYNA N Primary SHAYNA N Na [id number] [place] Insurance:CIGNAPolicy MILLSDOB: [facility] [place] Number: [id number] Hospital [address]Wua: (330) [id number] Repository 317 (HP) Date:9165-79-94[address] [address]AW: 11/10/2017 Secondary NOT GIVENUNK Na Insurance:SELF PAY [facility] Number: Effective Repository Date:2017-11-10 09/09/2017 SHAYNA N Primary SHAYNA N Na [id number] [place] Insurance:CIGNAPolicy MILLSDOB: [facility] [place] Number: [id number] Hospital [address]Dek: (330) [id number] Repository [phone] (HP) Date:3428-52-14[address] [address]QZ: 09/09/2017 Secondary NOT GIVENUNK Na Insurance:SELF PAY [facility] Number: Effective Repository Date:2017-09-09
== END 2018-05-30 11:00 | disposition home or self-care (01) ==
LOC: ED 09:32 → PCU 11:54
PROVIDERS: Nurse Practitioner Family; Admitting Provider Internal Medicine; Emergency Provider Emergency Medicine; Family Provider Family Medicine; PCP Family Medicine; Visit Provider Student in an Organized Health Care Education/Training Program
DX: R07.89 Other chest pain (principal); R06.00 Dyspnea, unspecified; I10 Essential (primary) hypertension; Z79.899 Other long term (current) drug therapy; Z82.49 Family history of ischemic heart disease and other diseases of the circulatory system; R00.1 Bradycardia, unspecified; R20.2 Paresthesia of skin
CPT/HCPCS: 36415; 71045; 78452; 80048; 83036; 84484; 85025; 85610; 85730; 93005; 93017; 97802; 99218; 99283; A9500; A4216; G0378

== ENCOUNTER → 2018-09-05 08:30 | Outpatient (CLI) | payer OTHER, SELFPAY ==
[2018-05-29 12:13] VITALS: BMI 32.8
[2018-09-05 10:51] LABS: Hemoglobin A1c 5.4 % (4.2-6.3)
[2018-09-05 10:52] LABS: ALB/GLOB Ratio 1.1 RATIO (0.9-2.4); AST(SGOT) 34 U/L (15-37); Alanine Aminotransfer ALT/SGPT 55 U/L (16-61); Albumin, Serum 3.7 g/dL (3.2-5.0); Alkaline Phosphatase 85 U/L (45-117); Anion Gap 8 (5-15); BUN 11 mg/dL (7-18); BUN/Creat Ratio 10.2 RATIO (10-20); Calcium,Total 9.1 mg/dL (8.5-10.1); Chloride 105 mmol/L (98-107); Creatinine, Serum 1.08 mg/dL (0.70-1.30); EST Glomerular Filtration Rate 79 mL/min (>60); Est Glom Filt Rate - Afr Amer 96 mL/min (>60); Globulin 3.5 g/dL (2.2-4.2); Glucose 100 mg/dL (74-106); Potassium 4.1 mmol/L (3.5-5.1); Protein, Total 7.2 g/dL (6.4-8.2); Sodium Level 142 mmol/L (136-145)
== END ==
PROVIDERS: Family Provider Family Medicine; PCP Family Medicine; Referring Provider Family Medicine; Visit Provider Family Medicine
DX: R73.02 Impaired glucose tolerance (oral) (principal); M10.9 Gout, unspecified
CPT/HCPCS: 36415; 80053; 83036; 84550

== ENCOUNTER 2018-12-24 17:53 | Emergency (ER) | payer OTHER, SELFPAY ==
[2018-05-29 12:13] VITALS: BMI 32.8
[2018-12-24 17:55] VITALS: BP 146/86; PULSE 55; RESP 16; TEMP 36.7; O2SAT 97; BMI 35.9
--- NOTE | 2018-12-24 18:28 | CT_ITS ---
STUDY: CT ABDOMEN AND PELVIS WITHOUT CONTRAST REASON FOR EXAM: Male, 43 years old. Left flank pain and hematuria RADIATION DOSAGE (If Supplied By Facility): CTDIvol = ( 14.80 ) mGy, DLP = ( 807.45 ) mGycm TECHNIQUE: Transaxial images were obtained from the dome of the diaphragm to the symphysis pubis without oral contrast, and without intravenous contrast. Sagittal and coronal images were reconstructed. Individualized dose optimization techniques were used for this CT. COMPARISON: 10/30/2014 FINDINGS: The visualized lung bases are unremarkable. The visualized portions of the heart are within normal limits. Normal liver. Cholelithiasis. Normal spleen. Normal pancreas. Normal bilateral adrenal glands. Normal right kidney. 9 mm nonobstructing left renal stone. Multiple 1 mm nonobstructing left renal stones. Normal visualized stomach. Normal small intestine. . The appendix is visualized and appears normal. Normal abdominal aorta. Normal inferior vena cava. Normal retroperitoneum. Normal urinary bladder. Normal abdominal wall. Normal osseous structures. CT/Abdomen/Pelvis without Cont IMPRESSION: No evidence of acute intestinal pathology or acute obstructive uropathy. Multiple nonobstructing left renal stones as described. Cholelithiasis. Electronically Signed: Osman Zambrano MD at 19:14 EDT Tel , Service support ,
[2018-12-24 18:46] LABS: Bacteria 0 SEEN /hpf (None Seen); Mucous, Urine 0 SEEN /hpf (<or=2+)
[2018-12-24] MEDS: Ondansetron 4 MG/2 ML Vial IV (18:48)
[2018-12-24] MEDS: 0.9% Normal Saline 1,000 ML 250 ML IV (18:48)
[2018-12-24] MEDS: Ketorolac 30 MG/ML Syringe IV (18:48)
[2018-12-24 18:52] LABS: Color, Urine Yellow (Yellow); Glucose, Dipstick Normal (Normal); Ketone-Dipstick Negative (Negative); Leukocyte Esterase-Dipstick 25 /ul (Negative); Nitrite-Dipstick Negative (Negative); Occult Blood-Urine 10 /ul (Negative); Protein-Dipstick 15 mg/dl (Negative); Urine Bilirubin Dipstick Negative (Negative); Urine Clarity Clear (Clear); Urine Urobilinogen 1 mg/dl (Normal)
[2018-12-24 18:58] LABS: Red Blood Cells-Urine 0-5 SEEN /hpf (0-5); Squamous Epithelial Cells - UA 0-5 SEEN /hpf (0-5); White Blood Cells 0-5 SEEN /hpf (0-5)
[2018-12-24 19:00] LABS: Anion Gap 5 (5-15); BUN 12 mg/dL (7-18); BUN/Creat Ratio 10.4 RATIO (10-20); Calcium,Total 8.8 mg/dL (8.5-10.1); Chloride 107 mmol/L (98-107); Creatinine, Serum 1.15 mg/dL (0.70-1.30); EST Glomerular Filtration Rate 73 mL/min (>60); Est Glom Filt Rate - Afr Amer 89 mL/min (>60); Estimated Creatinine Clearance 84.64 ml/min; Glucose 91 mg/dL (74-106); Potassium 3.8 mmol/L (3.5-5.1); Sodium Level 141 mmol/L (136-145)
[2018-12-24 19:01] LABS: Absolute Lymphocyte Count 3.01 X10^3/ul (0.83-4.51); Absolute Neutrophil Count 3.9 X10^3/uL (2.0-7.7); Basophil# 0.02 X10^3/uL; Basophil% 0.3 % (0-1); Eosinophil# 0.18 X10^3/uL; Eosinophils% 2.3 % (0-5); Hematocrit 42.1 % (40-54); Hemoglobin 14.5 g/dl (13.0-16.5); Lymphocyte # 3.01 X10^3/ul (4.0); Lymphocyte % 37.8 % (19-41); Mean Corp Hgb Conc 34.4 g/gl (32-36); Mean Corpuscular Hgb 34.5 pg (27.0-32.0); Mean Corpuscular Volume 100.2 fL (80-94); Mean Platelet Vol. 10.2 fl (6.2-12.0); Monocyte# 0.83 X10^3/uL; Monocyte% 10.4 % (0-10); Neutrophil # 3.92 X10^3/uL (2.7-7.7); Neutrophil % 49.1 % (47-70); POSITIVE COUNT NO; POSITIVE DIFFERENTIAL NO; POSITIVE MORPHOLOGY NO; Platelet Count 213 K/mm3 (150-450); RBC Distribution Width CV 14.9 % (11.6-14.6); RBC Distribution Width SD 54.8 fl (35.1-43.9)
--- NOTE | 2018-12-24 19:36 | ED.DCSUM_ITS ---
- ER Visit Summary Date of Service: 12/24/18 Chief Complaint: Left flank pain History of Present Illness: The patient is a 43 M presents to the emergency department left flank pain. Patient has a history of kidney stone. He states over the past 12 to 14 hours, he has had intermittent sharp stabbing pain in his left flank. He is been mildly nauseated without vomiting. He states pain comes and goes. He has had stenting in the past, but never lithotripsy. He states has not had a stone in some time. He denies any fevers or chills. He denies any other systemic complaints. He is been compliant with all his other medications. Physical Examination: Vital signs reviewed General: Well-nourished, well-developed Head: Normocephalic, atraumatic Eyes: Pupils equal and reactive, extraocular muscles intact Neck, supple, no lymphadenopathy Heart: Regular rate and rhythm Respiratory: No distress, clear bilaterally Abdomen: Soft, nontender, nondistended, no peritoneal signs Back: Nontender Extremities: Nontender, no edema, no cords Skin: Normal color no rash Neuro: Alert and oriented, no focal or lateralizing deficits Test Results: [] Emergency Department Course and Treatment: The patient does have mild pain in his left CVA area. The skin is intact. There is no rash. IV was established. He was given fluids and Toradol. Improvement of the symptoms. CT does not show any evidence of obstructing stone. There are multiple small stones. My suspicion is that he had a small stone in the past. He is currently resting comfortably. I do feel that he is safe for outpatient therapy. He will be treated with analgesics and antiemetics. He will be discharged home. Treatment Plan: [] Disposition: Discharge Impression: Urolithiasis This note was generated with [employer] dictation software. It may contain incorrect words, spelling, and punctuation that were not noted in review of the chart prior to signing ED Disposition - Plan for ED Patient: Instructions: KIDNEY STONE w/ Colic Prescriptions: Hydrocodone Bitart/Apap 5-325 [Midkiff 5MG-325MG] 1 tab PO Q6H PRN PRN 3 Days #10 tab PRN Reason: Pain Prescription Printed Ondansetron [Zofran Odt] 4 mg PO Q8H PRN PRN #10 tab PRN Reason: Nausea Prescription Printed Referrals: Luis Enrique Paz MD [Primary Care Provider] -
== END 2018-12-24 19:57 | disposition home or self-care (01) ==
PROVIDERS: Emergency Medicine; Emergency Provider Emergency Medicine; Family Provider Family Medicine; PCP Family Medicine
DX: N20.0 Calculus of kidney (principal); Z87.442 Personal history of urinary calculi; I10 Essential (primary) hypertension
CPT/HCPCS: 74176; 80048; 81001; 85025; 96361; 96374; 96375; 99283; J7030; A4216; J2405

== ENCOUNTER 2019-01-02 11:28 | Day surgery (SDC) | payer OTHER, SELFPAY ==
[2019-01-02] VITALS (8 sets, daily range): BP systolic 107–133; BP diastolic 72–91; PULSE 42–67; RESP 16; TEMP 36.2–37; O2SAT 92–99; BMI 35.1
[2019-01-02] MEDS: Cefazolin 2 GM in 0.9% Normal Saline 100 ML IV (13:27)
--- NOTE | 2019-01-02 13:27 | DCINST_ITS ---
Discharge Diet: Light diet - advance as tolerated Discharge Activity: Return to Normal Activity Suture Line Care: Avoid Pulling/Pushing, Avoid Pinching/Bending Allergies/Adverse Reactions: Allergies No Known Allergies Allergy (Verified 01/01/19 09:18) Medications to take at Discharge Losartan Potassium 100 mg PO DAILY 09/10/17 Amlodipine [Norvasc] 10 mg PO DAILY #30 tablet 05/30/18 Atenolol 25 mg PO DAILY 12/24/18 Ondansetron [Zofran Odt] 4 mg PO Q8H PRN PRN #10 tab 12/24/18 Duloxetine Hcl [Cymbalta] 30 mg PO DAILY PRN 01/01/19 Hydrocodone/Acetaminophen [[place] 5-325 Tablet] 1 ea PO PRN PRN 01/01/19 busPIRone [Buspar] 5 mg PO DAILY PRN 01/01/19 Acetaminophen [Tylenol Extra Strength] 500 mg PO Q4H PRN PRN #20 tab 01/02/19 Ibuprofen 600 mg PO Q6H PRN PRN #20 tab 01/02/19 The following prescriptions were given: Ibuprofen 600 mg PO Q6H PRN PRN #20 tab PRN Reason: Pain Prescription Printed Acetaminophen [Tylenol Extra Strength] 500 mg PO Q4H PRN PRN #20 tab PRN Reason: Pain Prescription Printed Primary Care Physician: Luis Enrique Paz MD [Primary Care Provider] - Test Results: Test results from this visit will be discussed in further detail at your follow- up appointment, if applicable. Please Follow Up With: Delroy Salter MD When: please call to make an appointment.
--- NOTE | 2019-01-02 14:17 | PCM.OPRPT ---
Report of Operation Date of Procedure: 01/02/19 Pre-Operative Diagnosis: Left renal calculi Post-Operative Diagnosis: Same Surgery/Procedure Performed:: Left extracorporeal shockwave lithotripsy Description of Surgical Findings:: 43 has a stone in the left kidney at about 7 mm in size recommended we treat the stone with shockwave lithotripsy and understands is always possible to have bleeding infection failure to clear the stones very clear of the fragments. After full discussion with the patient we will proceed with shock wave lithotripsy 43-year-old male taken back to the operating room. Timeout was performed. We then placed the patient supine on the lithotripter table. We then localized the stone in the left kidney. We then delivered 3000 shockwaves to the stone at a rate of 90 hretz and 7kv and monitored the fragmentation of the stone under fluoroscopy. After total of 3000 shockwaves stone it burst into small little pieces no visible fragments were seen in the fluoroscopy appeared to be a successful treatment. Patient anesthetic was reversed and he was taken back to the anesthesia PACU recovery in good condition. Type of Anesthesia:: General - Admit VTE Documentation VTE Present on Admission: No VTE Mechan Device Prophylaxis: SCD's
[2019-01-02] MEDS: oxyCODONE 5 MG Tablet PO (15:46)
[2019-01-02] MEDS: Acetaminophen 325 MG Tablet 650 MG PO (15:46)
== END 2019-01-02 16:12 | disposition home or self-care (01) ==
LOC: SDC 11:29 → AC 11:30
PROVIDERS: Family Provider Family Medicine; PCP Family Medicine; Referring Provider Urology; Visit Provider Urology
PROC: (CPT 50590; principal; 2019-01-02 13:20)
DX: N20.0 Calculus of kidney (principal); Z87.442 Personal history of urinary calculi; I10 Essential (primary) hypertension; F43.21 Adjustment disorder with depressed mood; F41.8 Other specified anxiety disorders; J45.20 Mild intermittent asthma, uncomplicated; M19.93 Secondary osteoarthritis, unspecified site; F17.220 Nicotine dependence, chewing tobacco, uncomplicated; E66.9 Obesity, unspecified; Z68.36 Body mass index [BMI] 36.0-36.9, adult; Z79.899 Other long term (current) drug therapy
CPT/HCPCS: 50590; J2405

== ENCOUNTER → 2019-01-15 | Outpatient (CLI) | payer OTHER, SELFPAY ==
[2019-01-02 11:40] VITALS: BMI 35.1
[2019-01-15 08:15] LABS: Bacteria 0 SEEN /hpf (None Seen); Red Blood Cells-Urine 0 SEEN /hpf (0-5); Squamous Epithelial Cells - UA 0 SEEN /hpf (0-5)
[2019-01-15 10:16] LABS: Absolute Lymphocyte Count 1.91 X10^3/uL (0.83-4.51); Absolute Neutrophil Count 4.1 X10^3/uL (2.0-7.7); Basophil# 0.02 X10^3/uL; Basophil% 0.3 % (0-1); Eosinophils% 1.5 % (0-5); Hematocrit 42.5 % (40-54); Hemoglobin 14.6 g/dL (13.0-16.5); Lymphocyte # 1.91 X10^3/ul (4.0); Lymphocyte % 27.8 % (19-41); Mean Corp Hgb Conc 34.4 g/dL (32-36); Mean Corpuscular Hgb 34.3 pg (27.0-32.0); Mean Corpuscular Volume 99.8 fL (80-94); Mean Platelet Vol. 10.4 fl (6.2-12.0); Monocyte# 0.72 X10^3/uL; Monocyte% 10.5 % (0-10); Neutrophil # 4.09 X10^3/uL (2.7-7.7); Neutrophil % 59.5 % (47-70); Platelet Count 249 K/mm3 (150-450); RBC Distribution Width CV 14.1 % (11.6-14.6); RBC Distribution Width SD 51.7 fl (35.1-43.9); Red Blood Count 4.26 M/mm3 (4.6-6.2); White Blood Count 6.9 K/mm3 (4.4-11.0)
[2019-01-15 10:18] LABS: Color, Urine Yellow (Yellow); Glucose, Dipstick Normal (Normal); Ketone-Dipstick 5 mg/dl (Negative); Leukocyte Esterase-Dipstick 25 /ul (Negative); Nitrite-Dipstick Negative (Negative); Occult Blood-Urine 25 /ul (Negative); Protein-Dipstick Negative (Negative); Specific Gravity, Urine 1.015 (1.002-1.030); Urine Bilirubin Dipstick Negative (Negative); Urine Clarity Clear (Clear); Urine Urobilinogen 1 mg/dl (Normal)
[2019-01-15 10:34] LABS: Hemoglobin A1c 5.5 % (4.2-6.3)
[2019-01-15 10:39] LABS: Mucous, Urine 3+ /hpf (<or=2+); White Blood Cells 0-5 SEEN /hpf (0-5)
[2019-01-15 10:40] LABS: ALB/GLOB Ratio 1.1 RATIO (0.9-2.4); AST(SGOT) 21 U/L (15-37); Alanine Aminotransfer ALT/SGPT 38 U/L (16-61); Albumin, Serum 3.7 g/dL (3.2-5.0); Alkaline Phosphatase 84 U/L (45-117); Anion Gap 5 (5-15); BUN 12 mg/dL (7-18); Calcium,Total 9.1 mg/dL (8.5-10.1); Chloride 110 mmol/L (98-107); EST Glomerular Filtration Rate 70 mL/min (>60); Est Glom Filt Rate - Afr Amer 84 mL/min (>60); Globulin 3.5 g/dL (2.2-4.2); Glucose 106 mg/dL (74-106); Protein, Total 7.2 g/dL (6.4-8.2); Sodium Level 142 mmol/L (136-145); Uric Acid 5.7 mg/dL (3.5-7.2)
== END | disposition home or self-care (01) ==
LOC: MFPLAB 08:11
PROVIDERS: Family Provider Family Medicine; PCP Family Medicine; Referring Provider Family Medicine; Visit Provider Family Medicine
DX: I10 Essential (primary) hypertension (principal); M10.9 Gout, unspecified; R73.02 Impaired glucose tolerance (oral); Z72.0 Tobacco use
CPT/HCPCS: 36415; 80053; 81001; 83036; 84550; 85025

== ENCOUNTER → 2019-01-24 16:13 | Outpatient (CLI) | payer OTHER, SELFPAY ==
[2019-01-02 11:40] VITALS: BMI 35.1
--- NOTE | 2019-01-24 16:15 | RAD_ITS ---
STUDY: X-RAY - ABDOMEN/PELVIS REASON FOR EXAM: Male, 43 years old. Kidney stone TECHNIQUE: Frontal views of the abdomen obtained COMPARISON: None. FINDINGS: There is no bowel obstruction. Prominent stool is present throughout the colon. There is air and stool to the level of the rectum. The visualized osseous structures are within normal limits. RAD/Abdomen Single View IMPRESSION: No bowel obstruction. Prominent stool throughout the colon. Electronically Signed: Kobi Alfaro, at 16:32 EDT Tel , Service support ,
== END ==
PROVIDERS: Family Provider Family Medicine; PCP Family Medicine; Referring Provider Urology; Visit Provider Urology
DX: N20.0 Calculus of kidney (principal)
CPT/HCPCS: 74018

== ENCOUNTER → 2019-05-07 14:32 | Outpatient (CLI) | payer OTHER, SELFPAY ==
[2019-01-02 11:40] VITALS: BMI 35.1
[2019-05-07 18:01] LABS: Absolute Lymphocyte Count 2.97 X10^3/uL (0.83-4.51); Absolute Neutrophil Count 3.6 X10^3/uL (2.0-7.7); Basophil# 0.03 X10^3/uL; Basophil% 0.4 % (0-1); Eosinophil# 0.08 X10^3/uL; Eosinophils% 1.1 % (0-5); Hematocrit 46.3 % (40-54); Hemoglobin 15.6 g/dL (13.0-16.5); Lymphocyte # 2.97 X10^3/ul (4.0); Lymphocyte % 40.4 % (19-41); Mean Corp Hgb Conc 33.7 g/dL (32-36); Mean Corpuscular Hgb 33.8 pg (27.0-32.0); Mean Corpuscular Volume 100.2 fL (80-94); Mean Platelet Vol. 10.1 fl (6.2-12.0); Monocyte# 0.69 X10^3/uL; Monocyte% 9.4 % (0-10); NRBC Flagged by Analyzer 0 % (0-5); Neutrophil # 3.56 X10^3/uL (2.7-7.7); Neutrophil % 48.4 % (47-70); Platelet Count 216 K/mm3 (150-450); RBC Distribution Width CV 14.5 % (11.6-14.6); RBC Distribution Width SD 53.3 fl (35.1-43.9); Red Blood Count 4.62 M/mm3 (4.6-6.2); White Blood Count 7.4 K/mm3 (4.4-11.0)
[2019-05-07 18:22] LABS: Vitamin B12 580 pg/mL (211-911); Vitamin D,25 Hydroxy 20.7 ng/mL (29.95-100.01)
[2019-05-07 18:24] LABS: AST(SGOT) 37 U/L (15-37); Alanine Aminotransfer ALT/SGPT 77 U/L (16-61); Albumin, Serum 3.8 g/dL (3.2-5.0); Alkaline Phosphatase 76 U/L (45-117); Anion Gap 7 (5-15); BUN 15 mg/dL (7-18); BUN/Creat Ratio 12.8 RATIO (10-20); CPK Total, Creatine Kinase 89 U/L (39-308); Calcium,Total 8.8 mg/dL (8.5-10.1); Chloride 105 mmol/L (98-107); Creatinine, Serum 1.17 mg/dL (0.70-1.30); EST Glomerular Filtration Rate 72 mL/min (>60); Est Glom Filt Rate - Afr Amer 87 mL/min (>60); Ferritin 224 ng/mL (26-388); Globulin 3.9 g/dL (2.2-4.2); Glucose 94 mg/dL (74-106); Magnesium 2.3 mg/dL (1.6-2.6); Potassium 4.1 mmol/L (3.5-5.1); Protein, Total 7.7 g/dL (6.4-8.2); Sodium Level 141 mmol/L (136-145); Thyroid Stim Hormone (TSH) 1.82 uIU/mL (0.358-3.74)
== END ==
PROVIDERS: Family Provider Family Medicine; PCP Family Medicine; Referring Provider Family Medicine; Visit Provider Family Medicine
DX: R53.83 Other fatigue (principal); R25.2 Cramp and spasm
CPT/HCPCS: 36415; 80053; 82306; 82550; 82607; 82728; 83735; 84443; 85025

== ENCOUNTER → 2019-10-28 10:02 | Outpatient (CLI) | payer OTHER, SELFPAY ==
[2019-01-02 11:40] VITALS: BMI 35.1
[2019-10-28 12:09] LABS: Absolute Lymphocyte Count 2.07 X10^3/uL (0.83-4.51); Absolute Neutrophil Count 3.9 X10^3/uL (2.0-7.7); Basophil# 0.03 X10^3/uL; Basophil% 0.4 % (0-1); Eosinophil# 0.07 X10^3/uL; Hematocrit 45.9 % (40-54); Hemoglobin 15.7 g/dL (13.0-16.5); Lymphocyte # 2.07 X10^3/ul (4.0); Lymphocyte % 30.5 % (19-41); Mean Corp Hgb Conc 34.2 g/dL (32-36); Mean Corpuscular Hgb 33.6 pg (27.0-32.0); Mean Corpuscular Volume 98.3 fL (80-94); Mean Platelet Vol. 10.8 fl (6.2-12.0); Monocyte% 10.3 % (0-10); NRBC Flagged by Analyzer 0 % (0-5); Neutrophil # 3.91 X10^3/uL (2.7-7.7); Neutrophil % 57.7 % (47-70); Platelet Count 202 K/mm3 (150-450); RBC Distribution Width CV 14.3 % (11.6-14.6); RBC Distribution Width SD 51.8 fl (35.1-43.9); Red Blood Count 4.67 M/mm3 (4.6-6.2); White Blood Count 6.8 K/mm3 (4.4-11.0)
[2019-10-28 12:19] LABS: AST(SGOT) 32 U/L (15-37); Alanine Aminotransfer ALT/SGPT 51 U/L (16-61); Albumin, Serum 3.7 g/dL (3.2-5.0); Alkaline Phosphatase 88 U/L (45-117); Anion Gap 4 (5-15); BUN 11 mg/dL (7-18); BUN/Creat Ratio 11.5 RATIO (10-20); Chloride 108 mmol/L (98-107); Creatinine, Serum 0.95 mg/dL (0.70-1.30); EST Glomerular Filtration Rate 91 mL/min (>60); Est Glom Filt Rate - Afr Amer 110 mL/min (>60); Globulin 3.8 g/dL (2.2-4.2); Glucose 97 mg/dL (74-106); Protein, Total 7.5 g/dL (6.4-8.2); Sodium Level 138 mmol/L (136-145); Uric Acid 6.8 mg/dL (3.5-7.2)
[2019-10-28 12:40] LABS: Hemoglobin A1c 5.4 % (4.2-6.3)
[2019-10-30 08:41] LABS: Vitamin D,25 Hydroxy 24.7 ng/mL
== END ==
PROVIDERS: PCP Family Medicine; Referring Provider Family Medicine; Visit Provider Family Medicine
DX: I10 Essential (primary) hypertension (principal); R73.02 Impaired glucose tolerance (oral); M10.9 Gout, unspecified; E55.9 Vitamin D deficiency, unspecified
CPT/HCPCS: 36415; 80053; 82306; 83036; 84550; 85025

== ENCOUNTER 2020-06-16 16:16 | Emergency (ER) | payer OTHER, SELFPAY ==
[2019-01-02 11:40] VITALS: BMI 35.1
[2020-06-16 16:16] VITALS: BP 167/97; PULSE 59; RESP 16; TEMP 36.3; O2SAT 96; BMI 36.3
--- NOTE | 2020-06-16 16:26 | EKG12_ITS ---
Test Reason : Blood Pressure : / mmHG Vent. Rate : 054 BPM Atrial Rate : 054 BPM P-R Int : 186 ms QRS Dur : 116 ms QT Int : 448 ms P-R-T Axes : 007 -25 018 degrees QTc Int : 424 ms Sinus bradycardia Left ventricular hypertrophy with QRS widening Abnormal ECG Confirmed by LORRAINE CHACON, LUH ([id number]), state editor SUSANA FARRAR ([id number]) on 06/24/2020 10:11:30 AM Referred By: Confirmed By:JAMILA PETERS MD
--- NOTE | 2020-06-16 16:27 | ED.VISSUMM ---
- ER Visit Summary Date of Service: 06/16/20 Chief Complaint: Chest pain History of Present Illness: The patient is a 44 M who presents with chest pain. This pain started about 6 hours ago. He describes a pressure in the lower portion of his retrosternal area. Nothing makes it better or worse. He had nausea this morning which resolved on its own. No vomiting, cough, fever or dyspnea. He had a stress test 2 years ago that was normal. He has hypertension but no other cardiac risk factors. He is a non-smoker. He took nothing for this pain at home. Physical Examination: Vital signs reviewed. HEENT exam unremarkable. Heart is regular rate and rhythm without murmurs. Lungs are clear to auscultation. Abdomen is soft and nontender. Extremities reveal no edema. Peripheral pulses are equal. Skin exam normal. Neurologic exam normal. Test Results: EKG is sinus rhythm with no ischemic changes. 1 view chest x-ray interpreted by myself and radiology having no acute findings. Laboratory studies are normal. Troponin normal. Emergency Department Course and Treatment: Patient was given aspirin. He has had over 6 hours of pain with a negative troponin. I doubt this is cardiac in nature. His heart score is 2 due to his age and hypertension history. I believe that he is low risk. I gave him a dose of Toradol due to continued pain. Patient will be discharged to use NSAIDs at home for pain. He will follow-up with his PCP. Treatment Plan: [] Disposition: Discharge Impression: Chest pain This note was generated with [employer] dictation software. It may contain incorrect words, spelling, and punctuation that were not noted in review of the chart prior to signing ED Disposition - Plan for ED Patient: Disposition: Home or Assisted Living Instructions: ED Chest Pain, Uncertain Cause Referrals: Luis Enrique Paz MD [Primary Care Provider] -
--- NOTE | 2020-06-16 16:30 | RAD_ITS ---
STUDY: X-RAY CHEST REASON FOR EXAM: Male, 44 years old. Chest pain TECHNIQUE: Frontal view of the chest COMPARISON: 05/29/18 FINDINGS: The lungs are clear. There are no pleural effusions. There is no pneumothorax. The heart is stable in size. The visualized osseous structures are within normal limits. RAD/Chest 1 View (Portable) IMPRESSION: No acute thoracic pathology. Electronically Signed: Dharmesh Hector, at 16:46 EST Tel , Service support ,
[2020-06-16] MEDS: Aspirin 81 MG TAB.CHEW 324 MG PO (16:31)
[2020-06-16 16:50] LABS: Absolute Lymphocyte Count 3.39 X10^3/uL (0.83-4.51); Absolute Neutrophil Count 3.7 X10^3/uL (2.0-7.7); Basophil# 0.03 X10^3/uL; Basophil% 0.4 % (0-1); Eosinophils% 1.2 % (0-5); Hemoglobin 16.1 g/dL (13.0-16.5); Lymphocyte # 3.39 X10^3/ul (4.0); Lymphocyte % 41.5 % (19-41); Mean Corpuscular Hgb 34.6 pg (27.0-32.0); Mean Corpuscular Volume 98.9 fL (80-94); Mean Platelet Vol. 9.8 fl (6.2-12.0); Monocyte# 0.91 X10^3/uL; Monocyte% 11.1 % (0-10); NRBC Flagged by Analyzer 0 % (0-5); Neutrophil # 3.72 X10^3/uL (2.7-7.7); Neutrophil % 45.6 % (47-70); Platelet Count 248 K/mm3 (150-450); RBC Distribution Width CV 14.8 % (11.6-14.6); RBC Distribution Width SD 53.6 fl (35.1-43.9); Red Blood Count 4.65 M/mm3 (4.6-6.2); White Blood Count 8.2 K/mm3 (4.4-11.0)
[2020-06-16 17:20] LABS: Anion Gap 5 (5-15); BUN 12 mg/dL (7-18); BUN/Creat Ratio 11.7 RATIO (10-20); Calcium,Total 8.6 mg/dL (8.5-10.1); Chloride 108 mmol/L (98-107); Creatinine, Serum 1.03 mg/dL (0.70-1.30); EST Glomerular Filtration Rate 83 mL/min (>60); Est Glom Filt Rate - Afr Amer 100 mL/min (>60); Estimated Creatinine Clearance 93.51 ml/min; Glucose 105 mg/dL (74-106); Potassium 3.8 mmol/L (3.5-5.1); Sodium Level 142 mmol/L (136-145)
[2020-06-16 17:24] VITALS: BP 148/94; PULSE 87; RESP 16; O2SAT 97
[2020-06-16] MEDS: Ketorolac 30 MG/ML Syringe IV (17:50)
[2020-06-16 18:36] VITALS: BP 153/93; PULSE 87; RESP 16; O2SAT 99
== END 2020-06-16 18:37 | disposition home or self-care (01) ==
PROVIDERS: Emergency Provider Emergency Medicine; PCP Family Medicine
DX: R07.9 Chest pain, unspecified (principal); I10 Essential (primary) hypertension
CPT/HCPCS: 71045; 80048; 84484; 85025; 93005; 96374; 99284; A4216

== ENCOUNTER → 2020-07-15 11:13 | Outpatient (CLI) | payer OTHER, SELFPAY ==
[2020-06-16 16:16] VITALS: BMI 36.3
[2020-07-15 14:48] LABS: Absolute Lymphocyte Count 2.05 X10^3/uL (0.83-4.51); Absolute Neutrophil Count 1.7 X10^3/uL (2.0-7.7); Basophil# 0.01 X10^3/uL; Basophil% 0.2 % (0-1); Eosinophils% 2.2 % (0-5); Hematocrit 46.1 % (40-54); Hemoglobin 15.3 g/dL (13.0-16.5); Lymphocyte # 2.05 X10^3/ul (4.0); Lymphocyte % 45.6 % (19-41); Mean Corp Hgb Conc 33.2 g/dL (32-36); Mean Corpuscular Hgb 32.8 pg (27.0-32.0); Mean Corpuscular Volume 98.9 fL (80-94); Mean Platelet Vol. 10.2 fl (6.2-12.0); Monocyte% 13.3 % (0-10); NRBC Flagged by Analyzer 0 % (0-5); Neutrophil # 1.73 X10^3/uL (2.7-7.7); Neutrophil % 38.5 % (47-70); Platelet Count 224 K/mm3 (150-450); RBC Distribution Width CV 14.7 % (11.6-14.6); RBC Distribution Width SD 53.7 fl (35.1-43.9); Red Blood Count 4.66 M/mm3 (4.6-6.2); White Blood Count 4.5 K/mm3 (4.4-11.0)
[2020-07-15 14:55] LABS: ALB/GLOB Ratio 0.9 RATIO (0.9-2.4); AST(SGOT) 150 U/L (15-37); Alanine Aminotransfer ALT/SGPT 293 U/L (16-61); Albumin, Serum 3.6 g/dL (3.2-5.0); Alkaline Phosphatase 84 U/L (45-117); Anion Gap 6 (5-15); BUN 14 mg/dL (7-18); BUN/Creat Ratio 14.6 RATIO (10-20); Calcium,Total 8.8 mg/dL (8.5-10.1); Chloride 107 mmol/L (98-107); Creatinine, Serum 0.96 mg/dL (0.70-1.30); EST Glomerular Filtration Rate 90 mL/min (>60); Est Glom Filt Rate - Afr Amer 109 mL/min (>60); Glucose 80 mg/dL (74-106); Potassium 3.8 mmol/L (3.5-5.1); Protein, Total 7.6 g/dL (6.4-8.2); Sodium Level 138 mmol/L (136-145); Uric Acid 5.7 mg/dL (3.5-7.2)
[2020-07-15 15:55] LABS: Hemoglobin A1c 5.4 % (3.8-5.6)
[2020-07-16 09:42] LABS: Bilirubin, Direct 0.14 mg/dL (0.00-0.30); Thyroid Stim Hormone (TSH) 1.67 uIU/mL (0.358-3.74)
[2020-07-17 06:08] LABS: HEPATITIS B SURFACE AG Negative (Negative); Hepatitis A AB, Total Positive (Negative); Hepatitis A IgM Antibody Negative (Negative); Hepatitis B Core AB IgM Negative (Negative); Hepatitis B Core Ab Total Negative (Negative); Hepatitis C Ab <0.1 s/co ratio (0.0-0.9)
[2020-07-17 08:11] LABS: Hep B Surface Antibodies Non Reactive (.)
== END ==
PROVIDERS: PCP Family Medicine; Referring Provider Family Medicine; Visit Provider Family Medicine
DX: I10 Essential (primary) hypertension (principal); M10.9 Gout, unspecified; R73.02 Impaired glucose tolerance (oral); R94.5 Abnormal results of liver function studies
CPT/HCPCS: 36415; 80053; 82248; 83036; 84443; 84550; 85025; 86704; 86705; 86706; 86708; 86709; 86803; 87340

== ENCOUNTER → 2020-11-18 08:01 | Outpatient (CLI) | payer OTHER, SELFPAY ==
[2020-11-18 10:17] LABS: Absolute Neutrophil Count 3.2 X10^3/uL (2.0-7.7); Basophil# 0.03 X10^3/uL; Basophil% 0.4 % (0-1); Eosinophil# 0.13 X10^3/uL; Eosinophils% 1.9 % (0-5); Hematocrit 43.3 % (40-54); Hemoglobin 14.6 g/dL (13.0-16.5); Lymphocyte % 40.5 % (19-41); Mean Corp Hgb Conc 33.7 g/dL (32-36); Mean Corpuscular Hgb 33.4 pg (27.0-32.0); Mean Corpuscular Volume 99.1 fL (80-94); Monocyte# 0.71 X10^3/uL; Monocyte% 10.3 % (0-10); NRBC Flagged by Analyzer 0 % (0-5); Neutrophil # 3.21 X10^3/uL (2.7-7.7); Neutrophil % 46.5 % (47-70); Platelet Count 256 K/mm3 (150-450); RBC Distribution Width CV 14.7 % (11.6-14.6); RBC Distribution Width SD 53.8 fl (35.1-43.9); Red Blood Count 4.37 M/mm3 (4.6-6.2); White Blood Count 6.9 K/mm3 (4.4-11.0)
[2020-11-18 10:51] LABS: Vitamin D,25 Hydroxy 31.1 ng/mL
[2020-11-18 10:53] LABS: Hemoglobin A1c 5.5 % (3.8-5.6)
[2020-11-18 11:06] LABS: ALB/GLOB Ratio 0.8 RATIO (0.9-2.4); AST(SGOT) 47 U/L (15-37); Alanine Aminotransfer ALT/SGPT 92 U/L (16-61); Albumin, Serum 3.3 g/dL (3.2-5.0); Alkaline Phosphatase 84 U/L (45-117); Anion Gap 7 (5-15); BUN 15 mg/dL (7-18); BUN/Creat Ratio 15.6 RATIO (10-20); Calcium,Total 8.7 mg/dL (8.5-10.1); Chloride 106 mmol/L (98-107); Cholesterol 163 mg/dL (200); Creatinine, Serum 0.96 mg/dL (0.70-1.30); EST Glomerular Filtration Rate 89 mL/min (>60); Est Glom Filt Rate - Afr Amer 108 mL/min (>60); Globulin 4.1 g/dL (2.2-4.2); Glucose 99 mg/dL (74-106); High Density Lipoprotein 37 mg/dL; Potassium 3.5 mmol/L (3.5-5.1); Protein, Total 7.4 g/dL (6.4-8.2); Sodium Level 140 mmol/L (136-145); Triglycerides 121 mg/dL; Very Low Density Lipoprotein 24 mg/dL (5-40)
== END ==
PROVIDERS: PCP Family Medicine; Referring Provider Family Medicine; Visit Provider Family Medicine
DX: I10 Essential (primary) hypertension (principal); E55.9 Vitamin D deficiency, unspecified; M10.9 Gout, unspecified; R73.02 Impaired glucose tolerance (oral)
CPT/HCPCS: 36415; 80053; 80061; 82306; 83036; 84550; 85025

== ENCOUNTER → 2021-01-20 08:42 | Outpatient (CLI) | payer OTHER, SELFPAY | PROVIDERS: PCP Family Medicine; Visit Provider Family Medicine | DX: J02.9 Acute pharyngitis, unspecified (principal) | CPT/HCPCS: 87070 ==

== ENCOUNTER 2021-08-30 15:18 | Outpatient (CLI) | payer OTHER, SELFPAY ==
[2021-08-30 15:23] LABS: Bacteria 0 SEEN /hpf (None Seen); Mucous, Urine 0 SEEN /hpf (<or=2+); Red Blood Cells-Urine 0 SEEN /hpf (0-5); White Blood Cells 0 SEEN /hpf (0-5)
[2021-08-30 17:32] LABS: Absolute Lymphocyte Count 2.48 X10^3/uL (0.83-4.51); Absolute Neutrophil Count 6.1 X10^3/uL (2.0-7.7); Basophil# 0.02 X10^3/uL; Basophil% 0.2 % (0-1); Eosinophil# 0.06 X10^3/uL; Eosinophils% 0.6 % (0-5); Hematocrit 44.8 % (40-54); Lymphocyte # 2.48 X10^3/ul (0.83-4.51); Mean Corp Hgb Conc 35.7 g/dL (32-36); Mean Corpuscular Hgb 35.6 pg (27.0-32.0); Mean Corpuscular Volume 99.8 fL (80-94); Mean Platelet Vol. 10.1 fl (6.2-12.0); Monocyte% 9.4 % (0-10); NRBC Flagged by Analyzer 0 % (0-5); Neutrophil # 6.06 X10^3/uL (2.7-7.7); Neutrophil % 63.6 % (47-70); Platelet Count 228 K/mm3 (150-450); RBC Distribution Width CV 14.6 % (11.6-14.6); RBC Distribution Width SD 54.4 fl (35.1-43.9); Red Blood Count 4.49 M/mm3 (4.6-6.2); White Blood Count 9.5 K/mm3 (4.4-11.0)
[2021-08-30 18:07] LABS: Color, Urine Yellow (Yellow); Glucose, Dipstick Normal (Normal); Ketone-Dipstick Negative (Negative); Leukocyte Esterase-Dipstick Negative /ul (Negative); Nitrite-Dipstick Negative (Negative); Occult Blood-Urine Negative /ul (Negative); Protein-Dipstick Negative (Negative); Urine Bilirubin Dipstick Negative (Negative); Urine Clarity Clear (Clear); Urine Urobilinogen Normal (Normal)
[2021-08-30 18:18] LABS: Hemoglobin A1c 5.6 % (3.8-5.6); Vitamin D,25 Hydroxy 23.6 ng/mL
[2021-08-30 18:20] LABS: Squamous Epithelial Cells - UA 0-5 SEEN /hpf (0-5)
[2021-08-30 18:36] LABS: ALB/GLOB Ratio 0.8 RATIO (0.9-2.4); AST(SGOT) 27 U/L (15-37); Alanine Aminotransfer ALT/SGPT 62 U/L (16-61); Albumin, Serum 3.6 g/dL (3.2-5.0); Alkaline Phosphatase 89 U/L (45-117); Anion Gap 7 (5-15); BUN 11 mg/dL (7-18); BUN/Creat Ratio 11.3 RATIO (10-20); Calcium,Total 8.7 mg/dL (8.5-10.1); Chloride 105 mmol/L (98-107); Creatinine, Serum 0.97 mg/dL (0.70-1.30); EST Glomerular Filtration Rate 88 mL/min (>60); Est Glom Filt Rate - Afr Amer 106 mL/min (>60); Globulin 4.3 g/dL (2.2-4.2); Glucose 100 mg/dL (74-106); Potassium 3.5 mmol/L (3.5-5.1); Protein, Total 7.9 g/dL (6.4-8.2); Sodium Level 138 mmol/L (136-145); Uric Acid 4.5 mg/dL (3.5-7.2)
== END 2021-08-30 23:59 | disposition home or self-care (01) ==
LOC: MFPLAB 15:20
PROVIDERS: PCP Family Medicine; Referring Provider Family Medicine; Visit Provider Family Medicine
DX: I10 Essential (primary) hypertension (principal); M10.9 Gout, unspecified; E55.9 Vitamin D deficiency, unspecified; R73.02 Impaired glucose tolerance (oral); R79.89 Other specified abnormal findings of blood chemistry
CPT/HCPCS: 36415; 80053; 81001; 82306; 83036; 84443; 84550; 85025

== ENCOUNTER 2021-12-13 19:22 | Emergency (ER) | payer OTHER, SELFPAY ==
[2021-12-13 19:23] VITALS: BP 145/101; PULSE 81; RESP 16; TEMP 36.4; O2SAT 98; BMI 38.4
[2021-12-13 19:38] VITALS: BP 145/101; PULSE 81; RESP 16; TEMP 36.4; O2SAT 98
[2021-12-13 19:44] LABS: Absolute Lymphocyte Count 3.62 X10^3/uL (0.83-4.51); Absolute Neutrophil Count 4.3 X10^3/uL (2.0-7.7); Basophil# 0.04 X10^3/uL; Basophil% 0.4 % (0-1); Eosinophil# 0.09 X10^3/uL; Hematocrit 46.5 % (40-54); Hemoglobin 16.4 g/dL (13.0-16.5); Lymphocyte # 3.62 X10^3/ul (0.83-4.51); Lymphocyte % 40.3 % (19-41); Mean Corp Hgb Conc 35.3 g/dL (32-36); Mean Corpuscular Hgb 34.6 pg (27.0-32.0); Mean Corpuscular Volume 98.1 fL (80-94); Mean Platelet Vol. 9.5 fl (6.2-12.0); Monocyte# 0.87 X10^3/uL; Monocyte% 9.7 % (0-10); NRBC Flagged by Analyzer 0 % (0-5); Neutrophil # 4.34 X10^3/uL (2.7-7.7); Neutrophil % 48.4 % (47-70); Platelet Count 264 K/mm3 (150-450); RBC Distribution Width CV 14.3 % (11.6-14.6); RBC Distribution Width SD 51.8 fl (35.1-43.9); Red Blood Count 4.74 M/mm3 (4.6-6.2)
[2021-12-13 19:49] LABS: Color, Urine Yellow (Yellow); Glucose, Dipstick Normal (Normal); Ketone-Dipstick 5 mg/dl (Negative); Leukocyte Esterase-Dipstick 25 /ul (Negative); Nitrite-Dipstick Negative (Negative); Occult Blood-Urine 250 /ul (Negative); Protein-Dipstick 30 mg/dl (Negative); Urine Bilirubin Dipstick Negative (Negative); Urine Clarity Sl. Cloudy (Clear); Urine Urobilinogen 1 mg/dl (Normal)
[2021-12-13 19:58] LABS: Anion Gap 7 (5-15); BUN 15 mg/dL (7-18); BUN/Creat Ratio 11.1 RATIO (10-20); Calcium,Total 9.3 mg/dL (8.5-10.1); Chloride 106 mmol/L (98-107); Creatinine, Serum 1.35 mg/dL (0.70-1.30); EST Glomerular Filtration Rate 60 mL/min (>60); Est Glom Filt Rate - Afr Amer 73 mL/min (>60); Estimated Creatinine Clearance 67.65 ml/min; Glucose 118 mg/dL (74-106); Potassium 3.3 mmol/L (3.5-5.1); Sodium Level 140 mmol/L (136-145)
[2021-12-13 20:00] LABS: Red Blood Cells-Urine 50-100 SEEN /hpf (0-5); White Blood Cells 0-5 SEEN /hpf (0-5)
[2021-12-13 20:01] LABS: Bacteria 1+ /hpf (None Seen); Mucous, Urine 1+ /hpf (<or=2+); Squamous Epithelial Cells - UA 0-5 SEEN /hpf (0-5)
--- NOTE | 2021-12-13 20:34 | ED.VIS.GI ---
HPI HPI - GI History of Present Illness Chief Complaint: Flank Pain Informant: patient Abdominal Pain/Flank Pain Onset: Hours (2) Context: Sudden Onset Timing: Continuous and Waxes and wanes Quality: Aching Location: Right Flank Current Severity: Severe Maximum Severity: Severe Worsened by: Nothing Relieved by: Nothing Nausea/Vomiting/Emesis GI Symptom: Positive for Nausea and Vomiting Diarrhea/Melena/Hematochezia GI Symptom: Negative for Diarrhea, Melena and Hematochezia Associated Symptoms Associated Symptoms: Negative for Dysuria, Frequency, Hematuria and Urgency Narrative Narrative: Sudden onset right flank pain consistent with prior kidney stone pain started couple hours ago. Has not had them in years, but he did have to have some taken out in the past. Saw Dr. Oneil remotely. Prior similar symptoms: Yes (w/ KSs) PFSH PFS Medical History Kidney calculi Home Medications amlodipine 10 mg PO DAILY #30 tablet 05/30/18 [Rx Last Taken 01/02/19] ondansetron 4 mg PO Q8H PRN PRN #10 tab 12/24/18 [Rx Last Taken Unknown] acetaminophen 500 mg PO Q4H PRN PRN #20 tab 01/02/19 [Rx Last Taken Unknown] ibuprofen 600 mg PO Q6H PRN PRN #20 tab 01/02/19 [Rx Last Taken Unknown] Cozaar 12/13/21 [History Last Taken Unknown] allopurinol 12/13/21 [History Last Taken Unknown] ondansetron 8 mg PO Q8H PRN PRN #20 tab 12/13/21 [Rx Last Taken Unknown] oxycodone-acetaminophen 1 tab PO Q4H PRN 3 Days #18 tablet 12/13/21 [Rx Last Taken Unknown] Allergy/AdvReac Type Severity Reaction Status Date / Time No Known Allergies Allergy Verified 12/13/21 19:25 Social History Smoking Status: Never smoker ROS ROS ED Constitutional Constitutional ED: Denies chills or fever(s) Eyes Eyes: Denies change in vision or diplopia ENT ENT ED: Denies rhinorrhea or sore throat Cardiovascular Cardiovascular: Denies chest pain or palpitations Respiratory/Chest Respiratory/Chest: Denies cough or dyspnea Gastrointestinal Gastrointestinal: Reports abdominal pain and nausea; Denies diarrhea Genitourinary Genitourinary ED: Reports flank pain; Denies dysuria or hematuria Musculoskeletal Musculoskeletal: Reports back pain; Denies neck pain Integumentary Denies abscess or rash Neurologic Neurologic: Denies headache(s), paresthesias or weakness Psychiatric Psychiatric: Denies anxiety or suicidal thoughts EXAM Physical Exam Const Vital Signs: 12/13/21 19:23 12/13/21 19:38 12/13/21 19:39 Temperature 97.6 F L 97.6 F L Temperature Source Temporal Temporal Pulse Rate 81 81 Respiratory Rate 16 16 Respiratory Effort Normal Non-Labored Respiratory Pattern Normal Blood Pressure 145/101 H 145/101 H Blood Pressure Mean 115 115 Pulse Ox 98 98 Oxygen Delivery Method Room Air Room Air 12/13/21 21:25 Temperature Temperature Source Pulse Rate Respiratory Rate 17 Respiratory Effort Respiratory Pattern Blood Pressure Blood Pressure Mean Pulse Ox Oxygen Delivery Method Room Air Positive well nourished, well developed and obese Constitutional Narrative: Mild painful distress General Appearance ED: well developed Nutritional Appearance: obese HEENT Reports moist mucous membranes normocephalic and atraumatic Eyes PERRL and EOMs intact bilaterally Neck full ROM and supple Resp normal respiratory effort and clear to auscultation bilaterally Cardio regular rate, regular rhythm and no murmurs GI non-distended GI Narrative: Mild tenderness throughout right side Auscultation: normoactive bowel sounds Palpation: soft Back/Spine Back/Spine Narrative: Right CVA tenderness General Back: other FROM Extremity normal to inspection General Extremety ED: Negative for edema, pulses abnormal or tenderness General Extremity: Negative for edema or pulses abnormal Neuro oriented x3, CN's II-XII intact bilaterally and no sensory deficits noted Sensorium / Orientation: awake and alert Motor Exam: strength 5/5 throughout Skin no rashes or lesions noted and no wounds MDM MDM MDM Narrative Medical decision making narrative: Patient treated with morphine, Toradol, Zofran, did require some more nausea medication but afterwards felt much better. CT shows a mid ureteral 4 mm stone which should pass with expectant management. No signs of infection on urinalysis. Given prescriptions for analgesics and antiemetics, and follow-up information as well as urine strainers. Patient comfortable with that plan. Lab Data Attestation: I reviewed the patient's lab results. Labs: Laboratory Results - last 24 hr 12/13/21 12/13/21 12/13/21 19:32 19:37 19:37 WBC 9.0 RBC 4.74 Hgb 16.4 Hct 46.5 MCV 98.1 H MCH 34.6 H MCHC 35.3 RDW Std Deviation 51.8 H RDW Coeff of Evie 14.3 Plt Count 264 MPV 9.5 Immature Gran % (Auto) 0.200 Neut % (Auto) 48.4 Lymph % (Auto) 40.3 [place] % (Auto) 9.7 Eos % (Auto) 1.0 Baso % (Auto) 0.4 Absolute Neuts (auto) 4.3 Absolute Lymphs (auto) 3.62 Nucleated RBC % 0 Sodium 140 Potassium 3.3 L Chloride 106 Carbon Dioxide 27.0 Anion Gap 7 BUN 15 Creatinine 1.35 H Estim Creat Clear Calc 67.65 Est GFR (MDRD) Af Amer 73 Est GFR (MDRD) Non-Af 60 BUN/Creatinine Ratio 11.1 Glucose 118 H Calcium 9.3 Urine Color Yellow Urine Clarity Sl. Cloudy Urine pH 5.0 Ur Specific [place] 1.030 Urine Protein 30 H Urine Glucose (UA) Normal Urine Ketones 5 H Urine Occult Blood 250 H Urine Nitrite Negative Urine Bilirubin Negative Urine Urobilinogen 1 H Ur Leukocyte Esterase 25 H Urine RBC 50-100 SEEN Urine WBC 0-5 SEEN Ur Squamous Epith Cells 0-5 SEEN Urine Bacteria 1+ Urine Mucus 1+ Radiography Diagnostic Testing: Clinical Impression(s) from Imaging Studies Abdomen/Pelvis CT 12/13/21 20:52 IMPRESSION: 4 mm calculus at the right mid ureter with mild upstream dilatation of the lung. Cholelithiasis without acute cholecystitis. Electronically Signed: Nilesh Hubbard MD at 21:17 EDT , Discharge Plan Triage Chief Complaint: Flank Pain ED Provider: Reynaldo Schwartz Dx/Rx/DC Orders Clinical Impression: Ureterolithiasis, Renal colic on right side Instructions: ED Kidney Stone w/ Colic Prescriptions: New oxycodone-acetaminophen [oxycodone-acetaminophen] 1 TABLET tablet 1 tab PO Q4H PRN (Reason: Pain) 3 Days Qty: 18 RF: 0 ondansetron [ondansetron] 4 MG tablet 8 mg PO Q8H PRN PRN (Reason: Nausea) Qty: 20 RF: 0 No Action amlodipine 10 MG tablet 10 mg PO DAILY Qty: 30 RF: 0 ondansetron 4 MG tablet 4 mg PO Q8H PRN PRN (Reason: Nausea) Qty: 10 RF: 0 acetaminophen 500 MG tablet 500 mg PO Q4H PRN PRN (Reason: Pain) Qty: 20 RF: 0 ibuprofen 600 MG tablet 600 mg PO Q6H PRN PRN (Reason: Pain) Qty: 20 RF: 0 Cozaar RF: 0 allopurinol RF: 0 Primary Care Provider: Luis Enrique Paz Referrals: Delroy Salter MD [STAFF PHYSICIAN] - 1 Week if not improving Disposition Disposition: Home, Self Care
[2021-12-13] MEDS: Morphine 4 MG/ML Syringe IV (20:38)
[2021-12-13] MEDS: Ketorolac 30 MG/ML Syringe IV (20:38)
[2021-12-13] MEDS: Ondansetron 4 MG/2 ML Vial IV (20:38)
--- NOTE | 2021-12-13 20:52 | CT_ITS ---
EXAM: CT ABDOMEN AND PELVIS WITHOUT INTRAVENOUS CONTRAST CLINICAL INDICATION: Kidney Stone R TECHNIQUE: Helically acquired images were obtained of the abdomen and pelvis without intravenous contrast. CTDIvol = ( 20.82 ) mGy, DLP = ( 1160.07 ) mGycm This CT exam was performed using one or more of the following dose reduction techniques: automated exposure control, adjustment of the mA and/or kV according to patient size, and/or use of iterative reconstruction technique. This report was created using [employer] report generation technology. COMPARISON: None. FINDINGS: LOWER THORAX: See below. ABDOMEN: LIVER: Unremarkable. Homogeneous. GALLBLADDER AND BILE DUCTS: Cholelithiasis. No acute cholecystitis. No intra- or extrahepatic biliary ductal dilation. PANCREAS: Unremarkable. No focal cystic mass. SPLEEN: Unremarkable. Normal size without focal cystic or solid mass. ADRENALS: Unremarkable. No nodules. KIDNEYS AND URETERS: 4 mm calculus at the right mid ureter with mild upstream dilatation of the lung. Small bilateral nonobstructing renal calyceal calculi. There is associated right renal enlargement and perinephric stranding. Normal renal size and position. STOMACH AND BOWEL: Distal colonic diverticulosis but no acute colitis. No colitis. No bowel obstruction. PELVIS: APPENDIX: No evidence of acute appendicitis. BLADDER: Unremarkable. REPRODUCTIVE: Unremarkable as visualized. No mass. ABDOMEN and PELVIS: INTRAPERITONEAL SPACE: Unremarkable. No ascites or other fluid collection. No free air. BONES/JOINTS: Unremarkable. No suspicious lytic or blastic abnormality. SOFT TISSUES: Unremarkable. No discrete abdominal or pelvic wall hernia. VASCULATURE: Unremarkable. Abdominal aorta is non-dilated. LYMPH NODES: Unremarkable. No enlarged lymph nodes. CT/Abdomen/Pelvis without Cont IMPRESSION: 4 mm calculus at the right mid ureter with mild upstream dilatation of the lung. Cholelithiasis without acute cholecystitis. Electronically Signed: Nilesh Hubbard MD at 21:17 EDT ,
[2021-12-13 21:25] VITALS: RESP 17
[2021-12-13] MEDS: Metoclopramide 10 MG/2 ML Vial 5 MG IV (21:36)
[2021-12-13 23:17] VITALS: BP 121/74; PULSE 74; RESP 17; O2SAT 98
== END 2021-12-13 23:37 | disposition home or self-care (01) ==
PROVIDERS: Emergency Provider Emergency Medicine; PCP Family Medicine; Visit Provider Emergency Medicine
DX: N20.1 Calculus of ureter (principal); E66.9 Obesity, unspecified; Z87.442 Personal history of urinary calculi
CPT/HCPCS: 74176; 80048; 81001; 85025; 96374; 96375; 99284; A4216; J2405

== ENCOUNTER → 2022-03-23 | Outpatient (CLI) | payer OTHER, SELFPAY ==
[2022-03-23 11:20] LABS: Bacteria 0 SEEN /hpf (None Seen); Mucous, Urine 0 SEEN /hpf (<or=2+); Red Blood Cells-Urine 0 SEEN /hpf (0-5); White Blood Cells 0 SEEN /hpf (0-5)
[2022-03-23 12:14] LABS: Color, Urine Yellow (Yellow); Glucose, Dipstick Normal (Normal); Ketone-Dipstick Negative (Negative); Leukocyte Esterase-Dipstick Negative /ul (Negative); Nitrite-Dipstick Negative (Negative); Occult Blood-Urine Negative /ul (Negative); Protein-Dipstick Negative (Negative); Specific Gravity, Urine 1.015 (1.002-1.030); Urine Bilirubin Dipstick Negative (Negative); Urine Clarity Clear (Clear); Urine Urobilinogen Normal (Normal)
[2022-03-23 12:27] LABS: Squamous Epithelial Cells - UA 0-5 SEEN /hpf (0-5)
[2022-03-23 12:40] LABS: Absolute Lymphocyte Count 2.69 X10^3/uL (0.83-4.51); Absolute Neutrophil Count 2.8 X10^3/uL (2.0-7.7); Basophil# 0.02 X10^3/uL; Basophil% 0.3 % (0-1); Eosinophil# 0.06 X10^3/uL; Hematocrit 45.4 % (40-54); Hemoglobin 15.4 g/dL (13.0-16.5); Lymphocyte # 2.69 X10^3/ul (0.83-4.51); Lymphocyte % 43.2 % (19-41); Mean Corp Hgb Conc 33.9 g/dL (32-36); Mean Corpuscular Hgb 34.5 pg (27.0-32.0); Mean Corpuscular Volume 101.8 fL (80-94); Mean Platelet Vol. 10.4 fl (6.2-12.0); Monocyte# 0.63 X10^3/uL; Monocyte% 10.1 % (0-10); NRBC Flagged by Analyzer 0 % (0-5); Neutrophil # 2.81 X10^3/uL (2.7-7.7); Neutrophil % 45.1 % (47-70); Platelet Count 224 K/mm3 (150-450); RBC Distribution Width CV 14.6 % (11.6-14.6); RBC Distribution Width SD 54.6 fl (35.1-43.9); Red Blood Count 4.46 M/mm3 (4.6-6.2); White Blood Count 6.2 K/mm3 (4.4-11.0)
[2022-03-23 13:08] LABS: Vitamin D,25 Hydroxy 42.2 ng/mL
[2022-03-23 13:17] LABS: ALB/GLOB Ratio 0.8 RATIO (0.9-2.4); AST(SGOT) 49 U/L (15-37); Alanine Aminotransfer ALT/SGPT 94 U/L (16-61); Albumin, Serum 3.4 g/dL (3.2-5.0); Alkaline Phosphatase 76 U/L (45-117); Anion Gap 7 (5-15); BUN 19 mg/dL (7-18); BUN/Creat Ratio 19.5 RATIO (10-20); Calcium,Total 9.1 mg/dL (8.5-10.1); Chloride 109 mmol/L (98-107); Cholesterol 146 mg/dL (200); Creatinine, Serum 0.98 mg/dL (0.70-1.30); EST Glomerular Filtration Rate 87 mL/min (>60); Est Glom Filt Rate - Afr Amer 106 mL/min (>60); Globulin 4.2 g/dL (2.2-4.2); Glucose 79 mg/dL (74-106); High Density Lipoprotein 33 mg/dL; Potassium 3.8 mmol/L (3.5-5.1); Protein, Total 7.6 g/dL (6.4-8.2); Sodium Level 143 mmol/L (136-145); Triglycerides 142 mg/dL; Uric Acid 7.1 mg/dL (3.5-7.2); Very Low Density Lipoprotein 28 mg/dL (5-40)
[2022-03-23 13:19] LABS: Hemoglobin A1c 5.6 % (3.8-5.6)
[2022-03-24 12:36] LABS: Hepatitis B Surface Antibody Non-Reactive; Hepatitis B Surface Antigen Non-Reactive (Nonreactive); Hepatitis C Antibody Non-Reactive (Nonreactive)
== END | disposition home or self-care (01) ==
LOC: MFPLAB 11:19
PROVIDERS: PCP Family Medicine; Referring Provider Family Medicine; Visit Provider Family Medicine
DX: I10 Essential (primary) hypertension (principal); E55.9 Vitamin D deficiency, unspecified; M10.9 Gout, unspecified; R94.5 Abnormal results of liver function studies; R73.02 Impaired glucose tolerance (oral)
CPT/HCPCS: 36415; 80053; 80061; 81001; 82306; 83036; 84550; 85025; 86706; 86803; 87340

== ENCOUNTER → 2022-05-16 | Outpatient (CLI) | payer OTHER, SELFPAY ==
[2022-05-16 18:18] LABS: Hematocrit 46.3 % (40-54); Hemoglobin 15.7 g/dL (13.0-16.5); Mean Corp Hgb Conc 33.9 g/dL (32-36); Mean Corpuscular Hgb 34.1 pg (27.0-32.0); Mean Corpuscular Volume 100.7 fL (80-94); Mean Platelet Vol. 10.7 fl (6.2-12.0); Platelet Count 215 K/mm3 (150-450); RBC Distribution Width CV 14.5 % (11.6-14.6); RBC Distribution Width SD 53.5 fl (35.1-43.9); White Blood Count 6.7 K/mm3 (4.4-11.0)
[2022-05-16 18:40] LABS: Vitamin B12 392 pg/mL (211-911)
[2022-05-16 18:57] LABS: ALB/GLOB Ratio 0.9 RATIO (0.9-2.4); AST(SGOT) 30 U/L (15-37); Alanine Aminotransfer ALT/SGPT 58 U/L (16-61); Albumin, Serum 3.7 g/dL (3.2-5.0); Alkaline Phosphatase 81 U/L (45-117); Anion Gap 7 (5-15); BUN 13 mg/dL (7-18); BUN/Creat Ratio 14.6 RATIO (10-20); Calcium,Total 9.2 mg/dL (8.5-10.1); Chloride 107 mmol/L (98-107); Creatinine, Serum 0.89 mg/dL (0.70-1.30); EST Glomerular Filtration Rate 97 mL/min (>60); Est Glom Filt Rate - Afr Amer 118 mL/min (>60); Globulin 3.9 g/dL (2.2-4.2); Glucose 88 mg/dL (74-106); Potassium 3.9 mmol/L (3.5-5.1); Protein, Total 7.6 g/dL (6.4-8.2); Sodium Level 141 mmol/L (136-145); Thyroid Stim Hormone (TSH) 1.85 uIU/mL (0.358-3.74)
== END | disposition home or self-care (01) ==
PROVIDERS: PCP Family Medicine; Visit Provider Nurse Practitioner Family
DX: R41.3 Other amnesia (principal)
CPT/HCPCS: 36415; 80053; 82607; 84443; 85027

== ENCOUNTER → 2022-08-02 | Outpatient (CLI) | payer OTHER, SELFPAY ==
[2022-08-02 11:13] LABS: Bacteria 0 SEEN /hpf (None Seen); Red Blood Cells-Urine 0 SEEN /hpf (0-5)
[2022-08-02 12:20] LABS: Absolute Lymphocyte Count 2.56 X10^3/uL (0.83-4.51); Absolute Neutrophil Count 2.7 X10^3/uL (2.0-7.7); Basophil# 0.02 X10^3/uL; Basophil% 0.3 % (0-1); Eosinophil# 0.03 X10^3/uL; Eosinophils% 0.5 % (0-5); Hematocrit 43.5 % (40-54); Hemoglobin 15.2 g/dL (13.0-16.5); Lymphocyte # 2.56 X10^3/ul (0.83-4.51); Mean Corp Hgb Conc 34.9 g/dL (32-36); Mean Corpuscular Hgb 33.9 pg (27.0-32.0); Mean Corpuscular Volume 96.9 fL (80-94); Mean Platelet Vol. 10.2 fl (6.2-12.0); Monocyte# 0.62 X10^3/uL; Monocyte% 10.4 % (0-10); NRBC Flagged by Analyzer 0 % (0-5); Neutrophil # 2.71 X10^3/uL (2.7-7.7); Neutrophil % 45.6 % (47-70); Platelet Count 224 K/mm3 (150-450); RBC Distribution Width CV 14.7 % (11.6-14.6); RBC Distribution Width SD 52.7 fl (35.1-43.9); Red Blood Count 4.49 M/mm3 (4.6-6.2)
[2022-08-02 12:23] LABS: Color, Urine Yellow (Yellow); Glucose, Dipstick Normal (Normal); Ketone-Dipstick 5 mg/dl (Negative); Leukocyte Esterase-Dipstick 25 /ul (Negative); Nitrite-Dipstick Negative (Negative); Occult Blood-Urine Negative /ul (Negative); Protein-Dipstick 15 mg/dl (Negative); Urine Bilirubin Dipstick Negative (Negative); Urine Clarity Clear (Clear); Urine Urobilinogen 1 mg/dl (Normal)
[2022-08-02 12:34] LABS: Mucous, Urine RARE /hpf (<or=2+); Squamous Epithelial Cells - UA 0-5 SEEN /hpf (0-5); White Blood Cells 0-5 SEEN /hpf (0-5)
[2022-08-02 12:49] LABS: Hemoglobin A1c 5.7 % (3.8-5.6)
[2022-08-02 12:54] LABS: ALB/GLOB Ratio 0.9 RATIO (0.9-2.4); AST(SGOT) 37 U/L (15-37); Alanine Aminotransfer ALT/SGPT 79 U/L (16-61); Albumin, Serum 3.6 g/dL (3.2-5.0); Alkaline Phosphatase 79 U/L (45-117); Anion Gap 7 (5-15); BUN 10 mg/dL (7-18); Chloride 107 mmol/L (98-107); Cholesterol 141 mg/dL (200); EST Glomerular Filtration Rate 85 mL/min (>60); Est Glom Filt Rate - Afr Amer 103 mL/min (>60); Globulin 4.1 g/dL (2.2-4.2); Glucose 103 mg/dL (74-106); High Density Lipoprotein 37 mg/dL; Potassium 3.6 mmol/L (3.5-5.1); Protein, Total 7.7 g/dL (6.4-8.2); Sodium Level 141 mmol/L (136-145); Triglycerides 112 mg/dL; Uric Acid 4.5 mg/dL (3.5-7.2); Very Low Density Lipoprotein 22 mg/dL (5-40); Vitamin D,25 Hydroxy 40.4 ng/mL
== END | disposition home or self-care (01) ==
LOC: MFPLAB 11:07
PROVIDERS: PCP Family Medicine; Visit Provider Family Medicine
DX: I10 Essential (primary) hypertension (principal); R73.02 Impaired glucose tolerance (oral); M10.9 Gout, unspecified; E55.9 Vitamin D deficiency, unspecified
CPT/HCPCS: 36415; 80053; 80061; 81001; 82306; 83036; 84550; 85025

== ENCOUNTER → 2022-12-20 | Outpatient (CLI) | payer OTHER, SELFPAY ==
[2022-12-20 14:41] LABS: Absolute Lymphocyte Count 2.39 X10^3/uL (0.83-4.51); Absolute Neutrophil Count 3.2 X10^3/uL (2.0-7.7); Basophil# 0.02 X10^3/uL; Basophil% 0.3 % (0-1); Eosinophil# 0.13 X10^3/uL; Eosinophils% 1.9 % (0-5); Hematocrit 45.2 % (40-54); Hemoglobin 15.7 g/dL (13.0-16.5); Lymphocyte # 2.39 X10^3/ul (0.83-4.51); Lymphocyte % 35.6 % (19-41); Mean Corp Hgb Conc 34.7 g/dL (32-36); Mean Corpuscular Hgb 34.4 pg (27.0-32.0); Mean Corpuscular Volume 99.1 fL (80-94); Monocyte# 0.95 X10^3/uL; Monocyte% 14.2 % (0-10); NRBC Flagged by Analyzer 0 % (0-5); Neutrophil # 3.19 X10^3/uL (2.7-7.7); Neutrophil % 47.6 % (47-70); Platelet Count 216 K/mm3 (150-450); RBC Distribution Width CV 14.6 % (11.6-14.6); RBC Distribution Width SD 52.7 fl (35.1-43.9); Red Blood Count 4.56 M/mm3 (4.6-6.2); White Blood Count 6.7 K/mm3 (4.4-11.0)
[2022-12-20 14:42] LABS: Color, Urine Yellow (Yellow); Glucose, Dipstick Normal (Normal); Ketone-Dipstick 5 mg/dl (Negative); Leukocyte Esterase-Dipstick 25 /ul (Negative); Nitrite-Dipstick Negative (Negative); Occult Blood-Urine Negative /ul (Negative); Protein-Dipstick 30 mg/dl (Negative); Urine Clarity Clear (Clear); Urine Urobilinogen 1 mg/dl (Normal)
[2022-12-20 14:43] LABS: Urine Bilirubin Dipstick 1 mg/dL (Negative)
[2022-12-20 14:54] LABS: Albumin, Serum 3.7 g/dL (3.2-5.0); BUN 14 mg/dL (7-18); BUN/Creat Ratio 14.9 RATIO (10-20); Creatinine, Serum 0.94 mg/dL (0.70-1.30); EST Glomerular Filtration Rate 91 mL/min (>60); Est Glom Filt Rate - Afr Amer 110 mL/min (>60); Globulin 4.2 g/dL (2.2-4.2); Glucose 85 mg/dL (74-106); Protein, Total 7.9 g/dL (6.4-8.2); Uric Acid 4.6 mg/dL (3.5-7.2)
[2022-12-20 14:55] LABS: ALB/GLOB Ratio 0.9 RATIO (0.9-2.4); AST(SGOT) 79 U/L (15-37); Alanine Aminotransfer ALT/SGPT 149 U/L (16-61); Alkaline Phosphatase 83 U/L (45-117); Anion Gap 5 (5-15); Calcium,Total 9.1 mg/dL (8.5-10.1); Chloride 104 mmol/L (98-107); Cholesterol 165 mg/dL (200); High Density Lipoprotein 34 mg/dL; Potassium 3.9 mmol/L (3.5-5.1); Sodium Level 138 mmol/L (136-145); Triglycerides 157 mg/dL; Very Low Density Lipoprotein 31 mg/dL (5-40)
[2022-12-20 14:56] LABS: Bacteria 1+ /hpf (None Seen); Mucous, Urine 2+ /hpf (<or=2+); Red Blood Cells-Urine 0-5 SEEN /hpf (0-5); Squamous Epithelial Cells - UA 0-5 SEEN /hpf (0-5); White Blood Cells 5-10 SEEN /hpf (0-5)
[2022-12-20 14:57] LABS: Vitamin D,25 Hydroxy 37.1 ng/mL
[2022-12-20 15:00] LABS: Hemoglobin A1c 5.6 % (3.8-5.6)
== END | disposition home or self-care (01) ==
LOC: MFPLAB 12:07
PROVIDERS: PCP Family Medicine; Visit Provider Family Medicine
DX: I10 Essential (primary) hypertension (principal); E55.9 Vitamin D deficiency, unspecified; M10.9 Gout, unspecified; R73.02 Impaired glucose tolerance (oral)
CPT/HCPCS: 36415; 80053; 80061; 81001; 82306; 83036; 84550; 85025

== ENCOUNTER → 2022-12-26 | Outpatient (CLI) | payer OTHER, SELFPAY ==
--- NOTE | 2022-12-26 08:59 | US_ITS ---
PROCEDURE: ABDOMINAL ULTRASOUND, RIGHT UPPER QUADRANT COMPARISONS: CT abdomen and pelvis 12/13/2021. CLINICAL INDICATION: worsening hepatic function labs TECHNIQUE: Real-time tsai-scale abdominal ultrasound. Limited color Doppler evaluation is performed. FINDINGS: Liver: Normal in size and echogenicity. Appropriate hepatopetal flow is present in the main portal vein. Gallbladder: Normal wall thickness. Single shadowing gallstone. Sonographic Torres''s sign is absent. No pericholecystic fluid is present. Biliary Tree: Nondilated. Common bile duct measures 5.8 mm. Pancreas: Obscured by overlying bowel gas. Right kidney: Normal in size and echogenicity. No hydronephrosis. Small echogenic foci at the upper and lower poles measure up to 5 mm.. The right kidney measures 10.9 cm in long axis. No free fluid. US/Abdomen Limited IMPRESSION: Cholelithiasis without sonographic evidence of acute cholecystitis. Nonobstructing right nephrolithiasis. Electronically Signed: Jono Swartz MD at 0:17 EDT ,
== END | disposition home or self-care (01) ==
LOC: US 08:56
PROVIDERS: PCP Family Medicine; Referring Provider Family Medicine; Visit Provider Family Medicine
DX: R94.5 Abnormal results of liver function studies (principal)
CPT/HCPCS: 76705

== ENCOUNTER 2023-04-07 14:20 | Emergency (ER) | payer OTHER, SELFPAY ==
[2023-04-07 14:23] VITALS: BP 160/131; PULSE 95; RESP 18; TEMP 35.9; O2SAT 98; BMI 36.0
--- NOTE | 2023-04-07 15:30 | CT_ITS ---
STUDY: CT ABDOMEN AND PELVIS WITHOUT CONTRAST REASON FOR EXAM: Male, 47 years old. Kidney Stone RADIATION DOSAGE (If Supplied By Facility): CTDIvol = ( 20.01 ) mGy, DLP = ( 1074.92 ) mGycm TECHNIQUE: Transaxial images were obtained from the dome of the diaphragm to the symphysis pubis without oral contrast, and without intravenous contrast. Sagittal and coronal images were reconstructed. Individualized dose optimization techniques were used for this CT. COMPARISON: December 13, 2021 FINDINGS: The visualized lung bases are unremarkable. The visualized portions of the heart are within normal limits. Normal liver. Solitary gallstone without evidence for acute inflammation. Normal spleen. Normal pancreas. Normal bilateral adrenal glands. There are 4 tiny nonobstructing calculi in the right kidney and 3 in the left. There is no evidence for renal obstruction or mass given the limited unenhanced nature of the study . Normal visualized stomach. Normal small intestine. Mild diverticular changes of the descending colon without evidence for acute diverticulitis. The appendix is visualized and appears normal. Minor atherosclerotic changes of the aorta without evidence for aneurysm. Normal inferior vena cava. Normal retroperitoneum. Normal urinary bladder. Normal abdominal wall. Lumbar spine demonstrates mild spondylosis Previously noted obstructing right renal calculus has been passed and and renal obstruction has resolved. CT/Abdomen/Pelvis without Cont IMPRESSION: Multiple bilateral nonobstructing renal calculi. Cholelithiasis without evidence for acute cholecystitis Electronically Signed: Kobi Garcia MD at 16:36 EDT ,
--- NOTE | 2023-04-07 15:33 | EX.ED.GUMALE ---
HPI History of Present Illness Chief Complaint: Flank Pain Narrative Narrative: 47-year-old male with history of kidney stones presenting with left flank pain. He states it is sharp. Radiates to the left lower abdomen. He has nausea. Denies dysuria or hematuria. Denies constipation or diarrhea. No fevers or chills. Patient states he sees Dr. Salter. He has passed kidney stones in the past but has also had to have procedures to remove them. [facility] Medical History Kidney calculi Home Medications amlodipine 10 mg tablet 10 mg PO DAILY ##30 05/30/18 [Rx Last Taken 01/02/19] ondansetron 4 mg disintegrating tablet 4 mg PO Q8H PRN PRN Nausea #10 tabs 12/24/18 [Rx Last Taken Unknown] acetaminophen 500 mg tablet 500 mg PO Q4H PRN PRN Pain #20 tabs 01/02/19 [Rx Last Taken Unknown] ibuprofen 600 mg tablet 600 mg PO Q6H PRN PRN Pain #20 tabs 01/02/19 [Rx Last Taken Unknown] Cozaar 12/13/21 [History Last Taken Unknown] allopurinol 12/13/21 [History Last Taken Unknown] ondansetron 4 mg disintegrating tablet 8 mg (2 x 4 mg) PO Q8H PRN PRN Nausea #20 tabs 12/13/21 [Rx Last Taken Unknown] oxycodone-acetaminophen 5 mg-325 mg tablet 1 tab PO Q4H PRN Pain 3 days #18 TABLETS 12/13/21 [Rx Last Taken Unknown] hydrocodone-acetaminophen 5-325mg 5mg-325mg 1 tab PO Q4H PRN PRN Pain 3 days #12 TABLETS 04/07/23 [Rx Last Taken Unknown] ondansetron 4 mg disintegrating tablet 4 mg PO Q8H PRN PRN Nausea #14 tabs 04/07/23 [Rx Last Taken Unknown] Allergy/AdvReac Type Severity Reaction Status Date / Time No Known Allergies Allergy Verified 04/07/23 14:23 Social History Smoking Status: Never smoker ROS ROS ED Constitutional Constitutional ED: Denies chills, fever(s) or sweats Eyes Eyes: Denies blurry vision or change in vision ENT ENT ED: Denies ear pain or sore throat Cardiovascular Cardiovascular: Denies chest pain, palpitations or racing heartbeat Respiratory/Chest Respiratory/Chest: Denies cough, dyspnea or sputum Gastrointestinal Gastrointestinal: Reports abdominal pain and nausea; Denies constipation, diarrhea or vomiting Genitourinary Genitourinary ED: Denies dysuria, hematuria or urinary frequency Musculoskeletal Musculoskeletal: Reports back pain; Denies arthralgias, myalgias or neck pain Integumentary Denies abscess, Abrasions or rash Neurologic Neurologic: Denies headache(s), paresthesias or weakness Psychiatric Psychiatric: Denies anxiety, depression, suicidal ideation or suicidal thoughts Endocrine Endocrinology: Denies polydipsia or polyuria EXAM Physical Exam Const Vital Signs: 04/07/23 14:23 Temperature 96.6 F L Temperature Source Temporal Pulse Rate 95 Respiratory Rate 18 Blood Pressure 160/131 H Blood Pressure Mean 140 Pulse Ox 98 Oxygen Delivery Method Room Air General Appearance ED: Negative for pallor HEENT Reports normocephalic, head/scalp atraumatic and moist mucous membranes Eyes PERRL and EOMs intact bilaterally Neck no lymphadenopathy and supple Chest Wall inspection of chest normal and palpation of chest normal Resp normal respiratory effort and clear to auscultation bilaterally Auscultation: Negative for rales, rhonchi or wheezes Cardio regular rate and regular rhythm GI normal to inspection, nondistended, normoactive bowel sounds and non-distended Palpation: soft Narrative: Deferred Back/Spine no CVA tenderness Extremity normal to inspection General Extremety ED: Negative for edema or tenderness General Extremity: Negative for edema Neuro oriented x3 and CN's II-XII intact bilaterally Sensorium / Orientation: alert Motor Exam: strength 5/5 throughout Psych mental status grossly normal Attitude: No agitated Skin no rashes or lesions noted and no wounds General Skin Exam: Negative for jaundice or pallor MDM MDM MDM Narrative Medical decision making narrative: Patient presenting with left flank pain. Differential occludes UTI, pyelonephritis, colitis, constipation, dehydration, electrolyte abnormalities. CBC will be obtained to assess white blood cell count, hemoglobin, platelets. BMP to assess renal function and electrolytes. Urinalysis to assess for UTI and occult blood. Patient medicated with Toradol and Zofran. CBC showed a normal white blood cell count. Hemoglobin stable at 14.9. Platelets normal at 237. Renal function electrolytes unremarkable. Urinalysis negative for infection but does show 150 occult blood. Patient initially given Toradol and Zofran and he did not think strong. CT of the abdomen pelvis without contrast was obtained and shows no acute normality. There are noted gallstones however he does not have pain in the right upper quadrant. Patient still having some intermittent flank pain. I suspect he probably passed a kidney stone. Patient will be given [place] and Zofran for home. He will follow-up with urology. Return precautions were discussed. Impression: 1. Left flank pain 2. Hematuria 3. Nausea Lab Data Labs: Laboratory Results - last 24 hr 04/07/23 15:35 WBC 7.4 RBC 4.27 L Hgb 14.9 Hct 43.6 MCV 102.1 H MCH 34.9 H MCHC 34.2 RDW Std Deviation 55.1 H RDW Coeff of Evie 14.6 Plt Count 237 MPV 9.9 Immature Gran % (Auto) 0.300 Neut % (Auto) 42.3 L Lymph % (Auto) 43.1 H [place] % (Auto) 9.6 Eos % (Auto) 4.3 Baso % (Auto) 0.4 Absolute Neuts (auto) 3.1 Absolute Lymphs (auto) 3.17 Nucleated RBC % 0 Sodium 139 Potassium 3.7 Chloride 107 Carbon Dioxide 28.0 Anion Gap 4 L BUN 11 Creatinine 1.04 Estim Creat Clear Calc 89.69 Est GFR (MDRD) Af Amer 98 Est GFR (MDRD) Non-Af 81 BUN/Creatinine Ratio 10.6 Glucose 118 H Calcium 8.6 Urine Color Yellow Urine Clarity Clear Urine pH 6.0 Ur Specific [place] 1.020 Urine Protein 30 H Urine Glucose (UA) Normal Urine Ketones Negative Urine Occult Blood 150 H Urine Nitrite Negative Urine Bilirubin Negative Urine Urobilinogen 1 H Ur Leukocyte Esterase 25 H Urine RBC 10-25 SEEN Urine WBC 0-5 SEEN Ur Squamous Epith Cells 0-5 SEEN Urine Bacteria 0 SEEN Urine Mucus 0 SEEN Radiography Diagnostic Testing: Clinical Impression(s) from Imaging Studies Abdomen/Pelvis CT 04/07/23 15:30 IMPRESSION: Multiple bilateral nonobstructing renal calculi. Cholelithiasis without evidence for acute cholecystitis Electronically Signed: Kobi Garcia MD at 16:36 EDT , Discharge Plan Triage Chief Complaint: Flank Pain Other Complaint: Abd Pain ED Provider: rAi Barragan Dx/Rx/DC Orders Instructions: ED Kidney Stone, Passed Prescriptions: New ondansetron 4 mg tablet,disintegrating 4 mg PO Q8H PRN PRN (Reason: Nausea) Qty: 14 0RF hydrocodone-acetaminophen 5-325 mg tablet 1 tab PO Q4H PRN PRN (Reason: Pain) 3 Days Qty: 12 0RF No Action amlodipine 10 MG tablet 10 mg PO DAILY Qty: 30 0RF ondansetron 4 MG tablet 4 mg PO Q8H PRN PRN (Reason: Nausea) Qty: 10 0RF acetaminophen 500 MG tablet 500 mg PO Q4H PRN PRN (Reason: Pain) Qty: 20 0RF ibuprofen 600 MG tablet 600 mg PO Q6H PRN PRN (Reason: Pain) Qty: 20 0RF Cozaar allopurinol oxycodone-acetaminophen [oxycodone-acetaminophen] 1 TABLET tablet 1 tab PO Q4H PRN (Reason: Pain) 3 Days Qty: 18 0RF ondansetron [ondansetron] 4 MG tablet 8 mg PO Q8H PRN PRN (Reason: Nausea) Qty: 20 0RF Primary Care Provider: Luis Enrique Paz Referrals: Delroy Salter MD [Med Staff - Active Staff] - 3-5 Days Luis Enrique Paz MD [Primary Care Provider] - Disposition Disposition: Home, Self Care
[2023-04-07] MEDS: Ondansetron 4 MG/2 ML Vial IV (15:40)
[2023-04-07] MEDS: Ketorolac 30 MG/ML Syringe 15 MG IV (15:40)
[2023-04-07 15:41] LABS: Bacteria 0 SEEN /hpf (None Seen); Mucous, Urine 0 SEEN /hpf (<or=2+)
[2023-04-07 15:52] LABS: Color, Urine Yellow (Yellow); Glucose, Dipstick Normal (Normal); Ketone-Dipstick Negative (Negative); Leukocyte Esterase-Dipstick 25 /ul (Negative); Nitrite-Dipstick Negative (Negative); Occult Blood-Urine 150 /ul (Negative); Protein-Dipstick 30 mg/dl (Negative); Urine Bilirubin Dipstick Negative (Negative); Urine Clarity Clear (Clear); Urine Urobilinogen 1 mg/dl (Normal)
[2023-04-07 15:55] LABS: Anion Gap 4 (5-15); BUN 11 mg/dL (7-18); BUN/Creat Ratio 10.6 RATIO (10-20); Calcium,Total 8.6 mg/dL (8.5-10.1); Chloride 107 mmol/L (98-107); Creatinine, Serum 1.04 mg/dL (0.70-1.30); EST Glomerular Filtration Rate 81 mL/min (>60); Est Glom Filt Rate - Afr Amer 98 mL/min (>60); Estimated Creatinine Clearance 89.69 ml/min; Glucose 118 mg/dL (74-106); Potassium 3.7 mmol/L (3.5-5.1); Sodium Level 139 mmol/L (136-145)
[2023-04-07 15:57] LABS: Absolute Lymphocyte Count 3.17 X10^3/uL (0.83-4.51); Absolute Neutrophil Count 3.1 X10^3/uL (2.0-7.7); Basophil# 0.03 X10^3/uL; Basophil% 0.4 % (0-1); Eosinophil# 0.32 X10^3/uL; Eosinophils% 4.3 % (0-5); Hematocrit 43.6 % (40-54); Hemoglobin 14.9 g/dL (13.0-16.5); Lymphocyte # 3.17 X10^3/ul (0.83-4.51); Lymphocyte % 43.1 % (19-41); Mean Corp Hgb Conc 34.2 g/dL (32-36); Mean Corpuscular Hgb 34.9 pg (27.0-32.0); Mean Corpuscular Volume 102.1 fL (80-94); Mean Platelet Vol. 9.9 fl (6.2-12.0); Monocyte# 0.71 X10^3/uL; Monocyte% 9.6 % (0-10); NRBC Flagged by Analyzer 0 % (0-5); Neutrophil # 3.11 X10^3/uL (2.7-7.7); Neutrophil % 42.3 % (47-70); Platelet Count 237 K/mm3 (150-450); RBC Distribution Width CV 14.6 % (11.6-14.6); RBC Distribution Width SD 55.1 fl (35.1-43.9); Red Blood Count 4.27 M/mm3 (4.6-6.2); White Blood Count 7.4 K/mm3 (4.4-11.0)
[2023-04-07 16:28] LABS: Red Blood Cells-Urine 10-25 SEEN /hpf (0-5); Squamous Epithelial Cells - UA 0-5 SEEN /hpf (0-5); White Blood Cells 0-5 SEEN /hpf (0-5)
[2023-04-07 18:55] VITALS: BP 129/87; PULSE 16; TEMP 36.6
== END 2023-04-07 18:56 | disposition home or self-care (01) ==
PROVIDERS: Emergency Provider Student in an Organized Health Care Education/Training Program; PCP Family Medicine; Visit Provider Student in an Organized Health Care Education/Training Program
DX: R10.32 Left lower quadrant pain (principal); R31.9 Hematuria, unspecified; R11.0 Nausea; Z87.442 Personal history of urinary calculi
CPT/HCPCS: 74176; 80048; 81001; 85025; 96374; 96375; 99284; A4216; J2405

== ENCOUNTER 2023-04-10 11:03 | Emergency (ER) | payer OTHER, SELFPAY ==
[2023-04-10 11:04] VITALS: BP 162/149; PULSE 95; RESP 16; TEMP 36.4; O2SAT 96; BMI 35.9
[2023-04-10 11:37] LABS: Absolute Lymphocyte Count 2.65 X10^3/uL (0.83-4.51); Absolute Neutrophil Count 2.7 X10^3/uL (2.0-7.7); Basophil# 0.03 X10^3/uL; Basophil% 0.5 % (0-1); Eosinophil# 0.47 X10^3/uL; Eosinophils% 7.3 % (0-5); Hemoglobin 15.2 g/dL (13.0-16.5); Lymphocyte # 2.65 X10^3/ul (0.83-4.51); Lymphocyte % 41.3 % (19-41); Mean Corp Hgb Conc 33.8 g/dL (32-36); Mean Corpuscular Volume 103.7 fL (80-94); Mean Platelet Vol. 9.7 fl (6.2-12.0); Monocyte# 0.57 X10^3/uL; Monocyte% 8.9 % (0-10); NRBC Flagged by Analyzer 0 % (0-5); Neutrophil # 2.68 X10^3/uL (2.7-7.7); Neutrophil % 41.8 % (47-70); Platelet Count 243 K/mm3 (150-450); RBC Distribution Width CV 14.6 % (11.6-14.6); RBC Distribution Width SD 56.3 fl (35.1-43.9); Red Blood Count 4.34 M/mm3 (4.6-6.2); White Blood Count 6.4 K/mm3 (4.4-11.0)
[2023-04-10] MEDS: 0.9% Normal Saline (1000mL) 1,000 ML 1000 ML IV (11:40)
[2023-04-10] MEDS: Ketorolac 15 MG/ML Vial IV (11:41)
[2023-04-10] MEDS: Ondansetron 4 MG/2 ML Vial IV (11:41)
[2023-04-10 11:53] LABS: Bacteria 0 SEEN /hpf (None Seen); Mucous, Urine 0 SEEN /hpf (<or=2+); Squamous Epithelial Cells - UA 0 SEEN /hpf (0-5)
[2023-04-10 11:56] LABS: Color, Urine Yellow (Yellow); Glucose, Dipstick Normal (Normal); Ketone-Dipstick 5 mg/dl (Negative); Leukocyte Esterase-Dipstick 25 /ul (Negative); Nitrite-Dipstick Negative (Negative); Occult Blood-Urine 250 /ul (Negative); Protein-Dipstick 30 mg/dl (Negative); Urine Clarity Sl. Cloudy (Clear); Urine Urobilinogen 1 mg/dl (Normal)
[2023-04-10 12:00] LABS: Urine Bilirubin Dipstick 1 mg/dL (Negative)
[2023-04-10 12:01] LABS: ALB/GLOB Ratio 0.9 RATIO (0.9-2.4); AST(SGOT) 39 U/L (15-37); Alanine Aminotransfer ALT/SGPT 88 U/L (16-61); Albumin, Serum 3.5 g/dL (3.2-5.0); Alkaline Phosphatase 77 U/L (45-117); Anion Gap 5 (5-15); BUN 11 mg/dL (7-18); BUN/Creat Ratio 8.7 RATIO (10-20); Calcium,Total 8.9 mg/dL (8.5-10.1); Chloride 106 mmol/L (98-107); Creatinine, Serum 1.26 mg/dL (0.70-1.30); EST Glomerular Filtration Rate 65 mL/min (>60); Est Glom Filt Rate - Afr Amer 78 mL/min (>60); Estimated Creatinine Clearance 74.03 ml/min; Globulin 4.1 g/dL (2.2-4.2); Glucose 113 mg/dL (74-106); Lipase 28 U/L (13-75); Potassium 3.6 mmol/L (3.5-5.1); Protein, Total 7.6 g/dL (6.4-8.2); Sodium Level 138 mmol/L (136-145)
[2023-04-10 12:09] LABS: Red Blood Cells-Urine 10-25 SEEN /hpf (0-5); White Blood Cells 0-5 SEEN /hpf (0-5)
--- NOTE | 2023-04-10 12:40 | EDS_ITS ---
<Statement entered by Jori Umanzor MD - 04/10/23 15:20> I have personally performed a face to face assessment of the patient and have reviewed the HAZEL Note. HPI History of Present Illness Chief Complaint: Flank Pain Narrative Narrative: Patient is a 47-year-old male with history of hypertension, kidney stones who sees Dr. Salter. Patient was seen here 3 days ago for the same. Patient had some blood in his urine, CT scan that was negative however there was a concern that the patient might of passed a kidney stone. Patient states the pain continued and was worse today and he is here for reevaluation. He has not seen his urologist in multiple years. Denies any fevers or chills. Denies any nausea or vomiting. PFSH PFS Medical History Kidney calculi Home Medications amlodipine 10 mg tablet 10 mg PO DAILY ##30 05/30/18 [Rx Last Taken 01/02/19] ondansetron 4 mg disintegrating tablet 4 mg PO Q8H PRN PRN Nausea #10 tabs 12/24/18 [Rx Last Taken Unknown] acetaminophen 500 mg tablet 500 mg PO Q4H PRN PRN Pain #20 tabs 01/02/19 [Rx Last Taken Unknown] ibuprofen 600 mg tablet 600 mg PO Q6H PRN PRN Pain #20 tabs 01/02/19 [Rx Last Taken Unknown] Cozaar 12/13/21 [History Last Taken Unknown] allopurinol 12/13/21 [History Last Taken Unknown] ondansetron 4 mg disintegrating tablet 8 mg (2 x 4 mg) PO Q8H PRN PRN Nausea #20 tabs 12/13/21 [Rx Last Taken Unknown] oxycodone-acetaminophen 5 mg-325 mg tablet 1 tab PO Q4H PRN Pain 3 days #18 TABLETS 12/13/21 [Rx Last Taken Unknown] hydrocodone-acetaminophen 5-325mg 5mg-325mg 1 tab PO Q4H PRN PRN Pain 3 days #12 TABLETS 04/07/23 [Rx Last Taken Unknown] ondansetron 4 mg disintegrating tablet 4 mg PO Q8H PRN PRN Nausea #14 tabs 04/07/23 [Rx Last Taken Unknown] ondansetron 4 mg disintegrating tablet 4 mg PO Q8H PRN PRN Nausea #10 tabs 04/10/23 [Rx Last Taken Unknown] oxycodone-acetaminophen 5 mg-325 mg tablet (Percocet) 1 tab PO Q8H PRN pain 3 days #10 tabs 04/10/23 [Rx Last Taken Unknown] Allergy/AdvReac Type Severity Reaction Status Date / Time No Known Allergies Allergy Verified 04/10/23 11:04 Social History Smoking Status: Never smoker ROS ROS ED ROS Narrative Constitutional: Negative for fever, chills, weight loss, weakness Eyes: Negative for vision loss, vision change, double vision ENT: Negative for any sore throat, ear pain, congestion Cardiovascular: Negative for any chest pain, tightness, palpitations Respiratory: Negative for any cough, sputum production, hemoptysis, dyspnea, dyspnea on exertion, orthopnea Gastrointestinal: Negative for any abdominal pain, nausea, vomiting, diarrhea, constipation, blood in stool, blood in vomit : Negative for any urinary frequency, retention, blood in urine. Positive for intermittent dysuria Muscle skeletal: Negative for any muscle joint pain, stiffness, myalgias, arthralgias, neck pain. Positive left-sided back pain radiates to the left lower abdomen Neurological: Negative for any headache, syncope, numbness or tingling, dizziness Skin: Negative for any rashes, lumps, itching, abrasions, lacerations Psychiatric: Negative for any depression, anxiety, stress, suicidal ideation, homicidal ideation Hematologic: Negative for any easy bruising, excessive bruising, easy bleeding Allergies: Negative for any eczema, hives, rash EXAM Physical Exam Narrative Exam Narrative: Vital signs reviewed. HEET: Head normocephalic atraumatic, TMs clear bilaterally. Posterior pharynx is clear, moist mucous membranes. Nares clear bilaterally. Neck: Supple with no lymphadenopathy or tenderness. No signs of meningismus, negative jolt sign. Cardiac: Regular rate and rhythm no murmurs gallops or rubs, equal peripheral pulses bilaterally. Respiratory: Lungs clear to auscultation bilaterally. No chest tenderness. Abdomen: Soft, nontender, nondistended. No abdominal bruit or pulsatile masses. No hepatosplenomegaly Extremities: No peripheral edema, no signs of gross trauma or deformity. Active full range of motion of all extremities. Neuro: Cranial nerves II through XII intact, no focal neurological deficits. Skin: Clean dry and intact with no rash, purpura, petechiae, vesicles or pustules. Backs/flank: No CVA tenderness, no midline spinal tenderness, no deformity. Psych: Normal mood and affect. No SI, HI or acute psychosis. Const Vital Signs: 04/10/23 11:04 Temperature 97.5 F L Temperature Source Temporal Pulse Rate 95 Respiratory Rate 16 Blood Pressure 162/149 H Blood Pressure Mean 153 Pulse Ox 96 Oxygen Delivery Method Room Air [facility] Lab Data Labs: Laboratory Results - last 24 hr 04/10/23 04/10/23 11:25 11:45 WBC 6.4 RBC 4.34 L Hgb 15.2 Hct 45.0 MCV 103.7 H MCH 35.0 H MCHC 33.8 RDW Std Deviation 56.3 H RDW Coeff of Evie 14.6 Plt Count 243 MPV 9.7 Immature Gran % (Auto) 0.200 Neut % (Auto) 41.8 L Lymph % (Auto) 41.3 H Bland % (Auto) 8.9 Eos % (Auto) 7.3 H Baso % (Auto) 0.5 Absolute Neuts (auto) 2.7 Absolute Lymphs (auto) 2.65 Nucleated RBC % 0 Sodium 138 Potassium 3.6 Chloride 106 Carbon Dioxide 27.0 Anion Gap 5 BUN 11 Creatinine 1.26 Estim Creat Clear Calc 74.03 Est GFR (MDRD) Af Amer 78 Est GFR (MDRD) Non-Af 65 BUN/Creatinine Ratio 8.7 L Glucose 113 H Calcium 8.9 Total Bilirubin 0.40 AST 39 H ALT 88 H Alkaline Phosphatase 77 Total Protein 7.6 Albumin 3.5 Globulin 4.1 Albumin/Globulin Ratio 0.9 Lipase 28 Urine Color Yellow Urine Clarity Sl. Cloudy Urine pH 5.0 Ur Specific [place] 1.020 Urine Protein 30 H Urine Glucose (UA) Normal Urine Ketones 5 H Urine Occult Blood 250 H Urine Nitrite Negative Urine Bilirubin 1 H Urine Urobilinogen 1 H Ur Leukocyte Esterase 25 H Urine RBC 10-25 SEEN Urine WBC 0-5 SEEN Ur Squamous Epith Cells 0 SEEN Urine Bacteria 0 SEEN Urine Mucus 0 SEEN Treatment and Re-Evaluation :: Appears to be in no obvious distress, vital signs are stable. Patient presents to the emergency department with left-sided flank pain. Patient's CBC was unremarkable, hemoglobin 15.2. Patient's chemistries show no kidney injury, AST slightly elevated at 39 with a ALT of 88, this is baseline for the patient. Patient's urinalysis was negative for any infection however did show some blood, patient possibly could have passed a stone and is continually passing smaller stones. We did reach out to urology, the patient will be seen outpatient. Patient was given pain medicine for home. At this time, there is no evidence suspect any pyelonephritis, diverticulitis, dehydration. Patient will follow-up outpatient. Discharge Plan Triage Chief Complaint: Flank Pain ED Midlevel Provider: Jori Mckeon ED Provider: Jori Umanzor Dx/Rx/DC Orders Clinical Impression: Acute flank pain, Unspecified renal colic Instructions: ED Flank Pain, Uncertain Cause, ED Kidney Stone w/ Colic Prescriptions: New oxycodone-acetaminophen [Percocet] 5-325 mg tablet 1 tab PO Q8H PRN (Reason: pain) 3 Days Qty: 10 0RF ondansetron 4 mg tablet,disintegrating 4 mg PO Q8H PRN PRN (Reason: Nausea) Qty: 10 0RF No Action amlodipine 10 MG tablet 10 mg PO DAILY Qty: 30 0RF ondansetron 4 MG tablet 4 mg PO Q8H PRN PRN (Reason: Nausea) Qty: 10 0RF acetaminophen 500 MG tablet 500 mg PO Q4H PRN PRN (Reason: Pain) Qty: 20 0RF ibuprofen 600 MG tablet 600 mg PO Q6H PRN PRN (Reason: Pain) Qty: 20 0RF Cozaar allopurinol oxycodone-acetaminophen [oxycodone-acetaminophen] 1 TABLET tablet 1 tab PO Q4H PRN (Reason: Pain) 3 Days Qty: 18 0RF ondansetron [ondansetron] 4 MG tablet 8 mg PO Q8H PRN PRN (Reason: Nausea) Qty: 20 0RF ondansetron 4 mg tablet,disintegrating 4 mg PO Q8H PRN PRN (Reason: Nausea) Qty: 14 0RF hydrocodone-acetaminophen 5-325 mg tablet 1 tab PO Q4H PRN PRN (Reason: Pain) 3 Days Qty: 12 0RF Primary Care Provider: Luis Enrique Paz Referrals: Delroy Salter MD [Med Staff - Active Staff] - Luis Enrique Paz MD [Primary Care Provider] - Activity Restrictions/Additional Instructions: Please follow-up outpatient. Call tomorrow or today to get a follow-up appointment, ensure that you let the office know that you were seen in the ER today and Joie was consulted. Disposition Disposition: Home, Self Care
[2023-04-10] MEDS: HYDROmorphone 0.5 MG/0.5 ML SYRINGE IV (12:42)
[2023-04-10 13:08] VITALS: BP 128/77; PULSE 84; RESP 16; O2SAT 97
== END 2023-04-10 13:10 | disposition home or self-care (01) ==
PROVIDERS: Nurse Practitioner; Emergency Provider Emergency Medicine; PCP Family Medicine; Visit Provider Emergency Medicine
DX: N23 Unspecified renal colic (principal); Z23 Encounter for immunization
CPT/HCPCS: 80053; 81001; 83690; 85025; 90471; 96361; 96374; 96375; 99283; J7030; A4216; J2405

== ENCOUNTER → 2023-10-10 | Outpatient (CLI) | payer OTHER, SELFPAY ==
[2023-10-10 12:45] LABS: Color, Urine Amber (Yellow); Glucose, Dipstick Normal (Normal); Ketone-Dipstick 5 mg/dl (Negative); Leukocyte Esterase-Dipstick 100 /ul (Negative); Nitrite-Dipstick Negative (Negative); Occult Blood-Urine 250 /ul (Negative); Protein-Dipstick 30 mg/dl (Negative); Urine Clarity Cloudy (Clear); Urine Urobilinogen 1 mg/dl (Normal)
[2023-10-10 12:46] LABS: Urine Bilirubin Dipstick 1 mg/dL (Negative)
[2023-10-10 12:52] LABS: Absolute Lymphocyte Count 1.93 X10^3/uL (0.83-4.51); Absolute Neutrophil Count 3.5 X10^3/uL (2.0-7.7); Basophil# 0.02 X10^3/uL; Basophil% 0.3 % (0-1); Eosinophil# 0.24 X10^3/uL; Eosinophils% 3.7 % (0-5); Hematocrit 43.8 % (40-54); Hemoglobin 15.1 g/dL (13.0-16.5); Lymphocyte # 1.93 X10^3/ul (0.83-4.51); Mean Corp Hgb Conc 34.5 g/dL (32-36); Mean Corpuscular Hgb 34.6 pg (27.0-32.0); Mean Corpuscular Volume 100.5 fL (80-94); Mean Platelet Vol. 9.9 fl (6.2-12.0); Monocyte# 0.72 X10^3/uL; Monocyte% 11.2 % (0-10); NRBC Flagged by Analyzer 0 % (0-5); Neutrophil # 3.51 X10^3/uL (2.7-7.7); Neutrophil % 54.6 % (47-70); Platelet Count 244 K/mm3 (150-450); RBC Distribution Width SD 55.9 fl (35.1-43.9); Red Blood Count 4.36 M/mm3 (4.6-6.2); White Blood Count 6.4 K/mm3 (4.4-11.0)
[2023-10-10 12:54] LABS: Bacteria 2+ /hpf (None Seen); Mucous, Urine 3+ /hpf (<or=2+); Red Blood Cells-Urine > 100 SEEN /hpf (0-5); Squamous Epithelial Cells - UA 0-5 SEEN /hpf (0-5); White Blood Cells 10-25 SEEN /hpf (0-5)
[2023-10-10 16:16] LABS: AST(SGOT) 37 U/L (15-37); Alanine Aminotransfer ALT/SGPT 63 U/L (16-61); Albumin, Serum 3.7 g/dL (3.2-5.0); Alkaline Phosphatase 79 U/L (45-117); Anion Gap 6 (5-15); BUN 15 mg/dL (7-18); BUN/Creat Ratio 14.3 RATIO (10-20); Calcium,Total 9.3 mg/dL (8.5-10.1); Chloride 111 mmol/L (98-107); Cholesterol 159 mg/dL (200); Creatinine, Serum 1.05 mg/dL (0.70-1.30); EST Glomerular Filtration Rate 80 mL/min (>60); Est Glom Filt Rate - Afr Amer 97 mL/min (>60); Globulin 3.8 g/dL (2.2-4.2); Glucose 99 mg/dL (74-106); High Density Lipoprotein 35 mg/dL; Potassium 3.7 mmol/L (3.5-5.1); Protein, Total 7.5 g/dL (6.4-8.2); Sodium Level 140 mmol/L (136-145); Triglycerides 86 mg/dL; Uric Acid 5.3 mg/dL (3.5-7.2); Very Low Density Lipoprotein 17 mg/dL (5-40)
[2023-10-10 16:23] LABS: Vitamin D,25 Hydroxy 37.8 ng/mL
[2023-10-10 17:39] LABS: Hemoglobin A1c 5.7 % (3.8-5.6)
== END | disposition home or self-care (01) ==
LOC: MFPLAB 09:44
PROVIDERS: PCP Family Medicine; Visit Provider Family Medicine
DX: I10 Essential (primary) hypertension (principal); E55.9 Vitamin D deficiency, unspecified; R73.02 Impaired glucose tolerance (oral); M10.9 Gout, unspecified
CPT/HCPCS: 36415; 80053; 80061; 81001; 82306; 83036; 84550; 85025

== ENCOUNTER 2024-01-11 01:56 | Emergency (ER) | payer OTHER, SELFPAY ==
[2024-01-11 01:56] VITALS: BP 152/99; PULSE 74; RESP 16; TEMP 36; O2SAT 96; BMI 39.2
[2024-01-11 02:00] VITALS: BP 154/99; PULSE 74; RESP 16; TEMP 36; O2SAT 96
--- NOTE | 2024-01-11 02:42 | CT_ITS ---
EXAM: CT Abdomen And Pelvis W/O Contrast Injection HISTORY: right flank pain, hx of kidney stones TECHNIQUE: Routine protocol CT abdomen and pelvis. IV Contrast: None.. Oral contrast: None. RADIATION DOSAGE (If Supplied By Facility): CTDIvol = ( 21.32 ) mGy, DLP = ( 1193.02 ) mGycm Individualized dose optimization techniques were used for this CT. COMPARISON: CT abdomen and pelvis 04/07/2023. LIMITATIONS: None. FINDINGS: LOWER CHEST: Included lung bases are clear. LIVER: Grossly unremarkable. GALLBLADDER AND BILIARY TREE: Large gallstone in the gallbladder. PANCREAS: Grossly unremarkable. SPLEEN: Grossly unremarkable. ADRENAL GLANDS: Grossly unremarkable. KIDNEYS AND URETERS: There is a 5 mm calculus in the proximal right ureter immediately distal to the ureteropelvic junction. The proximal right ureter is dilated with moderate right hydronephrosis and perinephric stranding. Multiple calculi in both kidneys. PERITONEUM: No free air. No free fluid. BOWEL: Scattered diverticula throughout colon. No bowel obstruction. APPENDIX: Visualized and unremarkable. No evidence of acute appendicitis. VESSELS: Abdominal aorta is normal caliber. RETROPERITONEUM: A few prominent lymph nodes largest left iliac chain, not significantly changed. REPRODUCTIVE ORGANS: Grossly unremarkable URINARY BLADDER: Grossly unremarkable. ABDOMINAL WALL: Unremarkable. BONES: No acute abnormalities. CT/Abdomen/Pelvis without Cont IMPRESSION: Proximal right ureteral calculus with moderate right hydroureteronephrosis. Bilateral nephrolithiasis. Cholelithiasis. Colonic diverticulosis. Electronically Signed: Joanna Lewis MD at 3:51 EDT ,
--- NOTE | 2024-01-11 02:44 | ED.VIS.GI ---
HPI HPI - GI History of Present Illness Chief Complaint: Abd Pain Informant: patient Narrative Narrative: Patient is a 48-year-old male with history of kidney stones presenting with sudden onset of right-sided flank pain. Started couple hours prior to arrival. Patient states it is constant in his right back but radiates to his abdomen and into his right groin. Has some associated nausea. Has required instrumentation by Dr. Salter in the past for kidney stones. Notes his urine was a little bit darker and thinks he might of had some blood in it. Associated nausea. Denies any change in his bowel movements, fever or chills. No other complaints or concerns reported at this time. [facility] Medical History Bacterial infection of skin Kidney calculi Home Medications ?Medication ?Instructions ?Recorded ?Last Taken ?Type amlodipine 10 mg tablet 10 mg PO DAILY #30 TABLETS 05/30/18 01/02/19 Rx Cozaar 12/13/21 Unknown History allopurinol 12/13/21 Unknown History meclizine 25 mg tablet 25 mg PO TID PRN dizziness #30 tabs 08/18/23 Unknown Rx ondansetron 4 mg disintegrating 4 mg PO Q8H PRN PRN Nausea #20 tabs 01/11/24 Unknown Rx tablet oxycodone-acetaminophen 5 mg-325 1 tab PO Q6H PRN pain 3 days #12 01/11/24 Unknown Rx mg tablet (Percocet) tabs tamsulosin 0.4 mg capsule (Flomax) 0.4 mg PO DAILY #7 caps 01/11/24 Unknown Rx Allergy/AdvReac Type Severity Reaction Status Date / Time No Known Allergies Allergy Verified 01/11/24 01:57 Social History Smoking Status: Never smoker ROS ROS ED Constitutional Constitutional ED: Denies chills or fever(s) Respiratory/Chest Respiratory/Chest: Denies cough Gastrointestinal Gastrointestinal: Reports abdominal pain and nausea; Denies constipation, diarrhea or vomiting Genitourinary Genitourinary ED: Reports hematuria; Denies dysuria Musculoskeletal Musculoskeletal: Reports back pain; Denies arthralgias Integumentary Denies rash Neurologic Neurologic: Denies headache(s) EXAM Physical Exam Const Vital Signs: 01/11/24 01:56 01/11/24 02:00 01/11/24 03:00 Temperature 96.8 F L 96.8 F L 98.5 F Temperature Source Temporal Temporal Oral Pulse Rate 74 74 76 Respiratory Rate 16 16 18 Blood Pressure 152/99 H 154/99 H 124/84 H Blood Pressure Mean 116 117 97 Pulse Ox 96 96 95 Oxygen Delivery Method Room Air Room Air Room Air 01/11/24 04:00 01/11/24 04:45 Temperature 98.3 F 98.3 F Temperature Source Oral Pulse Rate 59 L 59 L Respiratory Rate 16 16 Blood Pressure 128/79 H 128/79 H Blood Pressure Mean 95 95 Pulse Ox 95 95 Oxygen Delivery Method Room Air Positive well nourished and well developed Constitutional Narrative: Uncomfortable appearing General Appearance ED: well developed and NAD Neck supple Resp normal respiratory effort and clear to auscultation bilaterally Cardio regular rate and regular rhythm GI non-tender and non-distended Auscultation: normoactive bowel sounds Palpation: Negative for tender or guarding Back/Spine no CVA tenderness Back/Spine Narrative: Points to his right flank/CVA area as where his pain is but is not reproducible with palpation Extremity full ROM General Extremety ED: Negative for edema General Extremity: Negative for edema Neuro Sensorium / Orientation: alert, oriented to person, oriented to place and oriented to time Psych mental status grossly normal and thought process normal Skin no wounds MDM MDM MDM Narrative Medical decision making narrative: Patient evaluated for right flank pain. Has extensive history of kidney stones for the patient. Will obtain labs as well as CT flank. Patient is given IV fluids, Toradol and Zofran in the emergency room. Patient does have improvement of symptoms. Workup is consistent with a 5 mm proximal ureteral lithiasis with some associated hydronephrosis. His kidney function is normal. No signs of secondary infection. I think patient is a good candidate for outpatient follow-up. He is agreeable. Is given a dose of oxycodone at discharge as he only has a short drive home and I do not want to give him IV opioids since he is driving. He is agreeable with this. Will follow-up outpatient with urology, Dr. Salter. Given return precautions. Lab Data Attestation: I reviewed the patient's lab results. Labs: Laboratory Results - last 24 hr 01/11/24 02:35 WBC 8.5 RBC 4.50 L Hgb 15.0 Hct 43.7 MCV 97.1 H MCH 33.3 H MCHC 34.3 RDW Std Deviation 50.8 H RDW Coeff of Evie 14.3 Plt Count 213 MPV 9.5 Immature Gran % (Auto) 0.100 Neut % (Auto) 50.1 Lymph % (Auto) 37.5 [place] % (Auto) 10.6 H Eos % (Auto) 1.2 Baso % (Auto) 0.5 Absolute Neuts (auto) 4.3 Absolute Lymphs (auto) 3.20 Nucleated RBC % 0 Sodium 139 Potassium 3.5 Chloride 107 Carbon Dioxide 26.0 Anion Gap 6 BUN 12 Creatinine 1.03 Estim Creat Clear Calc 111.10 Est GFR (MDRD) Af Amer 99 Est GFR (MDRD) Non-Af 82 BUN/Creatinine Ratio 11.7 Glucose 114 H Calcium 8.9 Total Bilirubin 0.50 AST 32 ALT 49 Alkaline Phosphatase 73 Total Protein 7.3 Albumin 3.5 Globulin 3.8 Albumin/Globulin Ratio 0.9 Lipase 29 Urine Color Yellow Urine Clarity Clear Urine pH 7.0 Ur Specific [place] 1.010 Urine Protein Negative Urine Glucose (UA) Normal Urine Ketones Negative Urine Occult Blood Negative Urine Nitrite Negative Urine Bilirubin Negative Urine Urobilinogen Normal Ur Leukocyte Esterase Negative Urine RBC 0 SEEN Urine WBC 0 SEEN Ur Squamous Epith Cells 0 SEEN Amorphous Sediment 1+ Urine Bacteria 0 SEEN Urine Mucus 0 SEEN Radiography Diagnostic Testing: Clinical Impression(s) from Imaging Studies Abdomen/Pelvis CT 01/11/24 02:42 IMPRESSION: Proximal right ureteral calculus with moderate right hydroureteronephrosis. Bilateral nephrolithiasis. Cholelithiasis. Colonic diverticulosis. Electronically Signed: Joanna Lewis MD at 3:51 EDT , Discharge Plan Triage Chief Complaint: Abd Pain ED Provider: Ethel Antonio Dx/Rx/DC Orders Clinical Impression: Renal colic on right side, Right nephrolithiasis Instructions: ED Kidney Stone with Pain Prescriptions: New oxycodone-acetaminophen [Percocet] 5-325 mg tablet 1 tab PO Q6H PRN (Reason: pain) 3 Days Qty: 12 0RF tamsulosin [Flomax] 0.4 mg capsule 0.4 mg PO DAILY Qty: 7 0RF ondansetron 4 mg tablet,disintegrating 4 mg PO Q8H PRN PRN (Reason: Nausea) Qty: 20 0RF No Action meclizine 25 mg tablet 25 mg PO TID PRN (Reason: dizziness) Qty: 30 0RF amlodipine 10 MG tablet 10 mg PO DAILY Qty: 30 0RF Cozaar allopurinol Primary Care Provider: Luis Enriqeu Paz Referrals: Delroy Salter MD [Med Staff - Active Staff] - Luis Enrique Paz MD [Primary Care Provider] - Activity Restrictions/Additional Instructions: Call Dr. Salter's office today to arrange outpatient follow-up. With no you are diagnosed with a proximal 5 mm obstructing kidney stone on the right. You may also take [id number] ibuprofen for pain. Drink plenty of fluids and return to the ER if you have progression worsening your symptoms. Print Language: Thai Disposition Disposition: Home, Self Care Discharge Date/Time: 01/11/24 04:53
[2024-01-11] MEDS: Ondansetron 4 MG/2 ML Vial IV (02:52)
[2024-01-11] MEDS: 0.9% Normal Saline (1000mL) 1,000 ML 999 ML IV (02:52)
[2024-01-11] MEDS: Ketorolac 15 MG/ML Vial IV (02:52)
[2024-01-11 02:56] LABS: Bacteria 0 SEEN /hpf (None Seen); Mucous, Urine 0 SEEN /hpf (<or=2+); Red Blood Cells-Urine 0 SEEN /hpf (0-5); Squamous Epithelial Cells - UA 0 SEEN /hpf (0-5); White Blood Cells 0 SEEN /hpf (0-5)
[2024-01-11 02:57] LABS: Absolute Neutrophil Count 4.3 X10^3/uL (2.0-7.7); Basophil# 0.04 X10^3/uL; Basophil% 0.5 % (0-1); Eosinophils% 1.2 % (0-5); Hematocrit 43.7 % (40-54); Lymphocyte % 37.5 % (19-41); Mean Corp Hgb Conc 34.3 g/dL (32-36); Mean Corpuscular Hgb 33.3 pg (27.0-32.0); Mean Corpuscular Volume 97.1 fL (80-94); Mean Platelet Vol. 9.5 fl (6.2-12.0); Monocyte% 10.6 % (0-10); NRBC Flagged by Analyzer 0 % (0-5); Neutrophil # 4.28 X10^3/uL (2.7-7.7); Neutrophil % 50.1 % (47-70); Platelet Count 213 K/mm3 (150-450); RBC Distribution Width CV 14.3 % (11.6-14.6); RBC Distribution Width SD 50.8 fl (35.1-43.9); White Blood Count 8.5 K/mm3 (4.4-11.0)
[2024-01-11 03:00] VITALS: BP 124/84; PULSE 76; RESP 18; TEMP 36.9; O2SAT 95
[2024-01-11 03:04] LABS: Color, Urine Yellow (Yellow); Glucose, Dipstick Normal (Normal); Ketone-Dipstick Negative (Negative); Leukocyte Esterase-Dipstick Negative /ul (Negative); Nitrite-Dipstick Negative (Negative); Occult Blood-Urine Negative /ul (Negative); Protein-Dipstick Negative (Negative); Urine Bilirubin Dipstick Negative (Negative); Urine Clarity Clear (Clear); Urine Urobilinogen Normal (Normal)
[2024-01-11 03:14] LABS: ALB/GLOB Ratio 0.9 RATIO (0.9-2.4); AST(SGOT) 32 U/L (15-37); Alanine Aminotransfer ALT/SGPT 49 U/L (16-61); Albumin, Serum 3.5 g/dL (3.2-5.0); Alkaline Phosphatase 73 U/L (45-117); Anion Gap 6 (5-15); BUN 12 mg/dL (7-18); BUN/Creat Ratio 11.7 RATIO (10-20); Calcium,Total 8.9 mg/dL (8.5-10.1); Chloride 107 mmol/L (98-107); Creatinine, Serum 1.03 mg/dL (0.70-1.30); EST Glomerular Filtration Rate 82 mL/min (>60); Est Glom Filt Rate - Afr Amer 99 mL/min (>60); Globulin 3.8 g/dL (2.2-4.2); Glucose 114 mg/dL (74-106); Lipase 29 U/L (13-75); Potassium 3.5 mmol/L (3.5-5.1); Protein, Total 7.3 g/dL (6.4-8.2); Sodium Level 139 mmol/L (136-145)
[2024-01-11 03:16] LABS: Amorphous Sediment 1+
[2024-01-11 04:00] VITALS: BP 128/79; PULSE 59; RESP 16; TEMP 36.8; O2SAT 95
[2024-01-11 04:45] VITALS: BP 128/79; PULSE 59; RESP 16; TEMP 36.8; O2SAT 95
[2024-01-11] MEDS: oxyCODONE 5 MG Tablet PO (04:50)
== END 2024-01-11 04:53 | disposition home or self-care (01) ==
PROVIDERS: Emergency Provider Emergency Medicine; PCP Family Medicine; Visit Provider Emergency Medicine
DX: N13.2 Hydronephrosis with renal and ureteral calculous obstruction (principal); Z87.442 Personal history of urinary calculi
CPT/HCPCS: 74176; 80053; 81001; 83690; 85025; 96361; 96374; 96375; 99283; J7030; A4216; J2405

== ENCOUNTER 2024-01-13 13:55 | Emergency (ER) | payer OTHER, SELFPAY ==
[2024-01-13 13:56] VITALS: BP 138/99; PULSE 90; RESP 16; TEMP 35.5; O2SAT 90; BMI 38.2
--- NOTE | 2024-01-13 14:23 | EX.ED.DYSGE1 ---
HPI History of Present Illness Chief Complaint: Flank Pain Narrative Narrative: 48-year-old male past medical history of ureterolithiasis, last kidney stone was in March presents with right flank pain. He states his symptoms actually began on , approximately 3 days ago. He came to the emergency department within 15 minutes of it starting because he knows the feeling of when he has ureteral stones. He was nauseated but has not vomited throughout the weekend. He presents to the emergency department today because although he made follow-up with the urologist, Dr. Salter, it is not till the , approximately 10 days from now. He took his last Percocet today at noon, 2 and half hours prior to arrival. States he is also on Flomax, and they had given him ondansetron as well. He has a 5 mm stone in the proximal ureter according to the CT scan that was performed on . He states he is essentially here because he has run out of his Percocet does not want to be without it over the weekend. He denies any fevers or chills, no other symptoms. [facility] Medical History Bacterial infection of skin Kidney calculi Home Medications ?Medication ?Instructions ?Recorded ?Last Taken ?Type amlodipine 10 mg tablet 10 mg PO DAILY #30 TABLETS 05/30/18 01/02/19 Rx Cozaar 12/13/21 Unknown History allopurinol 12/13/21 Unknown History meclizine 25 mg tablet 25 mg PO TID PRN dizziness #30 tabs 08/18/23 Unknown Rx ondansetron 4 mg disintegrating 4 mg PO Q8H PRN PRN Nausea #20 tabs 01/11/24 Unknown Rx tablet oxycodone-acetaminophen 5 mg-325 1 tab PO Q6H PRN pain 3 days #12 01/11/24 Unknown Rx mg tablet (Percocet) tabs tamsulosin 0.4 mg capsule (Flomax) 0.4 mg PO DAILY #7 caps 01/11/24 Unknown Rx ketorolac 10 mg tablet 10 mg PO TID PRN pain 5 days #15 01/13/24 Unknown Rx tabs oxycodone-acetaminophen 5 mg-325 1 tab PO Q8H PRN pain 3 days #12 01/13/24 Unknown Rx mg tablet (Percocet) tabs Allergy/AdvReac Type Severity Reaction Status Date / Time No Known Allergies Allergy Verified 01/13/24 13:55 Social History Smoking Status: Never smoker ROS ROS ED ROS Narrative Constitutional: No fever, no chills. HEENT: No sore throat. No neck pain. No loss of vision. No rhinorrhea. Cardiovascular: No chest pain. No palpitations. No pedal edema. Respiratory: No cough, no shortness of breath. Abdominal: No abdominal pain. Positive nausea. No vomiting. Genitourinary: No dysuria. No hematuria. Positive right flank pain. Musculoskeletal: No myalgias. No arthralgias. Neurologic: No headaches. No dizziness. No lightheadedness. Skin: No rash. No change in color. Psychiatric: No depression. No anxiety. EXAM Physical Exam Narrative Exam Narrative: Afebrile. Vital signs noted. Nontoxic-appearing. Lying comfortably on cot. HEENT: Normocephalic. Atraumatic. PERRL, EOMI. Neck soft and supple. No point tenderness or step off. Cardiovascular: Regular rate and rhythm. No murmurs, rubs, or gallops appreciated. Respiratory: No tachypnea. Lungs clear to auscultation bilaterally. Gastrointestinal: Abdomen soft, nontender, with normoactive bowel sounds. No rebound or guarding. No CVA tenderness to percussion bilaterally. Neurological: Awake. Alert. Nonfocal, nonlateralizing. Skin: No rash. Normal color. No pallor. Musculoskeletal: No pedal edema. Full range of motion extremities. Const Vital Signs: 01/13/24 13:56 Temperature 95.9 F L Temperature Source Temporal Pulse Rate 90 Respiratory Rate 16 Blood Pressure 138/99 H Blood Pressure Mean 112 Pulse Ox 90 Oxygen Delivery Method Room Air MDM MDM MDM Narrative Medical decision making narrative: I reviewed the patient's prior record. He does have a 5 mm proximal stone in the right ureter. There is hydronephrosis. I do feel that he requires any repeat laboratory work or imaging. He is resting comfortably. At this point in time, I wrote him a prescription for 12 more Percocet tablets and did add Toradol to take as needed. He and his states that they can follow-up with his primary care provider for more pain medication as needed as a only needed for the next few days, over the weekend. I feel he can be discharged safely home with follow-up. Return instructions were reviewed. Disposition is discharged home in stable condition. History & Record Review Additional record(s) reviewed:: Prior ED visit and Prior labs (CT report) Discharge Plan Triage Chief Complaint: Flank Pain ED Provider: Tato Arshad Dx/Rx/DC Orders Clinical Impression: Ureterolithiasis, Renal colic, Has run out of medications Prescriptions: New ketorolac 10 mg tablet 10 mg PO TID PRN (Reason: pain) 5 Days Qty: 15 0RF oxycodone-acetaminophen [Percocet] 5-325 mg tablet 1 tab PO Q8H PRN (Reason: pain) 3 Days Qty: 12 0RF No Action meclizine 25 mg tablet 25 mg PO TID PRN (Reason: dizziness) Qty: 30 0RF amlodipine 10 MG tablet 10 mg PO DAILY Qty: 30 0RF Cozaar allopurinol oxycodone-acetaminophen [Percocet] 5-325 mg tablet 1 tab PO Q6H PRN (Reason: pain) 3 Days Qty: 12 0RF tamsulosin [Flomax] 0.4 mg capsule 0.4 mg PO DAILY Qty: 7 0RF ondansetron 4 mg tablet,disintegrating 4 mg PO Q8H PRN PRN (Reason: Nausea) Qty: 20 0RF Primary Care Provider: Luis Enrique Paz Referrals: Delroy Salter MD [Med Staff - Active Staff] - Keep Jess appointment Luis Enrique Paz MD [Primary Care Provider] - 3-5 Days Print Language: Ukrainian Disposition Disposition: Home, Self Care
== END 2024-01-13 14:38 | disposition home or self-care (01) ==
PROVIDERS: Emergency Provider Emergency Medicine; PCP Family Medicine; Visit Provider Emergency Medicine
DX: N13.2 Hydronephrosis with renal and ureteral calculous obstruction (principal); Z87.442 Personal history of urinary calculi
CPT/HCPCS: 99282

== ENCOUNTER → 2024-01-23 | Outpatient (CLI) | payer OTHER, SELFPAY | END | disposition home or self-care (01) | LOC: LABSPEC 15:51 | PROVIDERS: PCP Family Medicine; Referring Provider Urology; Visit Provider Urology | DX: Z87.442 Personal history of urinary calculi (principal) | CPT/HCPCS: 82360 ==

== ENCOUNTER 2024-02-07 22:32 | Emergency (ER) | payer OTHER, SELFPAY ==
[2024-02-07 22:32] VITALS: BP 128/97; PULSE 122; RESP 18; TEMP 36.6; O2SAT 99; BMI 38.0
--- NOTE | 2024-02-07 22:43 | EX.ED.UPPERE ---
HPI History of Present Illness HPI Narrative: Patient presents with a laceration to his left index finger that occurred tonight. Patient states he was cutting watermelon when he accidentally cut his finger with a knife. Patient is right-hand dominant. Patient describes his pain as aching and throbbing. Patient states it is over the distal phalanx of the left index finger. Patient states nothing makes it better and nothing makes it worse. Patient denies any paresthesias or weakness. Patient states his last tetanus was approximately 9-10 years ago. Chief Complaint: Laceration Informant: patient Occured/Mechanism Comment: Cut with a knife Onset/Context/Timing Onset: Today Context: Sudden Onset Timing: Continuous Quality of Pain: Aching and Throbbing Location: Distal phalanx left index finger Worsened by: Nothing Relieved by: Nothing Associated Symptoms Associated Symptoms: Negative for Parasthesia, Weakness or Loss of Funtion Narrative Tetanus Immunization: 5-10 years [facility] Medical History (Updated 02/07/24 @ 23:[address] Zach Tubbs, ) Bacterial infection of skin Kidney calculi Home Medications ?Medication ?Instructions ?Recorded ?Last Taken ?Type amlodipine 10 mg tablet 10 mg PO DAILY #30 TABLETS 05/30/18 01/02/19 Rx Cozaar 12/13/21 Unknown History allopurinol 12/13/21 Unknown History Allergy/AdvReac Type Severity Reaction Status Date / Time No Known Allergies Allergy Verified 02/07/24 22:32 Surgical History (Updated 02/07/24 @ 22:[address] Zach Tubbs, ) H/O left wrist surgery History of ankle surgery Hx of shoulder surgery Social History Smoking Status: Never smoker ROS ROS ED Constitutional Constitutional ED: Denies chills or fever(s) Eyes Eyes: Denies blurry vision or change in vision ENT ENT ED: Denies rhinorrhea or sore throat Cardiovascular Cardiovascular: Denies chest pain or palpitations Respiratory/Chest Respiratory/Chest: Denies cough or dyspnea Gastrointestinal Gastrointestinal: Denies nausea or vomiting Genitourinary Genitourinary ED: Denies dysuria or hematuria Musculoskeletal Musculoskeletal: Denies back pain or neck pain Integumentary Denies abscess or rash Neurologic Neurologic: Denies headache(s) or weakness Allergic/Immunologic Allergic/Immunologic ED: Denies mouth swelling or urticaria EXAM Physical Exam Const Vital Signs: 02/07/24 22:32 Temperature 98 F Temperature Source Temporal Pulse Rate 122 H Respiratory Rate 18 Blood Pressure 128/97 H Blood Pressure Mean 107 Pulse Ox 99 Oxygen Delivery Method Room Air Positive well nourished and well developed General Appearance ED: well developed and NAD HEENT Reports moist mucous membranes normocephalic Neck full ROM and supple Extremity Extremity Narrative: There is a 2.5 cm full-thickness laceration over the distal phalanx of the left index finger involving the nailbed and nail plate. There is mild gapping of the wound margins. There is mild bleeding noted. Sensation was intact to light touch in all digits. Capillary refill was less than 2 seconds in all digits. Strength is 5/5 in flexion and extension of the MP, PIP, and DIP joints of the left index finger. Neuro oriented x3, CN's II-XII intact bilaterally, moves all extremities, no focal motor deficits and no sensory deficits noted Sensorium / Orientation: alert Motor Exam: strength 5/5 throughout Psych mental status grossly normal MDM MDM MDM Narrative Medical decision making narrative: Patient was given a tetanus booster since it has been 9-10 years since his last tetanus. The left index finger was cleaned and anesthetized with 1% lidocaine via digital block. The nail plate was elevated. 3 simple interrupted #5-0 Vicryl Rapide were placed in the nailbed. 3 simple interrupted #4-0 Ethilon sutures were placed in the skin of the distal phalanx outside of the nailbed. Patient tolerated the procedure well. Bacitracin dressing was applied. Patient was instructed to follow-up with his primary care physician in 7 days for wound recheck and suture removal. Patient understood and was agreeable with the plan. All questions were answered. Procedures Lacerations Left index finger: Length: 2.5 cm Depth: Sub Q Prep: Sterile Conditions and Chlorhexadine Laceration repair: Digital block, Irrigated, Lidocaine, Skin sutures and Wound explored Irrigated (ml): 100 Suture Information: Vicryl (3 simple interrupted #5-0 Vicryl Rapide sutures were placed in the nailbed) and Ethilon (3 simple interrupted #4-0 Ethilon sutures were placed outside of the nailbed in the skin.) Discharge Plan Triage Chief Complaint: Laceration ED Provider: Zach Tubbs Dx/Rx/DC Orders Clinical Impression: Laceration of left index finger with damage to nail, Elevated blood pressure reading Instructions: ED Laceration, Hand: All Closures Prescriptions: No Action amlodipine 10 MG tablet 10 mg PO DAILY Qty: 30 0RF Cozaar allopurinol Primary Care Provider: Luis Enrique Paz Referrals: Luis Enrique Paz MD [Primary Care Provider] - 7 Days for suture removal Print Language: Bengali Disposition Disposition: Home, Self Care
[2024-02-07] MEDS: Lidocaine 1% (20 ml mdv) 20 ML Vial INFILT (23:04)
[2024-02-07] MEDS: Diphth,Pertuss(Acell),Tet Vac 0.5 ML Vial IM (23:04)
[2024-02-08] VITALS: BP 158/103; PULSE 91; RESP 18; TEMP 36.6; O2SAT 94
[2024-02-08] MEDS: HYDROcodone Bitartrate/Apap 5/325 Tablet PO (00:14)
== END 2024-02-08 00:14 | disposition home or self-care (01) ==
PROVIDERS: Emergency Provider Emergency Medicine; PCP Family Medicine; Visit Provider Emergency Medicine
DX: S61.311A Laceration without foreign body of left index finger with damage to nail, initial encounter (principal); W26.0XXA Contact with knife, initial encounter; Y93.G1 Activity, food preparation and clean up; R03.0 Elevated blood-pressure reading, without diagnosis of hypertension; Z23 Encounter for immunization
CPT/HCPCS: 11760; 12001; 90715; 99283

== ENCOUNTER → 2024-03-01 | Outpatient (CLI) | payer OTHER, SELFPAY ==
[2024-03-01 15:40] LABS: Hematocrit 43.1 % (40-54); Hemoglobin 14.5 g/dL (13.0-16.5); Mean Corp Hgb Conc 33.6 g/dL (32-36); Mean Corpuscular Hgb 33.3 pg (27.0-32.0); Mean Corpuscular Volume 98.9 fL (80-94); Mean Platelet Vol. 10.5 fl (6.2-12.0); Platelet Count 273 K/mm3 (150-450); RBC Distribution Width CV 15.5 % (11.6-14.6); RBC Distribution Width SD 56.6 fl (35.1-43.9); Red Blood Count 4.36 M/mm3 (4.6-6.2)
[2024-03-01 15:42] LABS: Vitamin D,25 Hydroxy 32.5 ng/mL
[2024-03-01 16:07] LABS: ALB/GLOB Ratio 0.9 RATIO (0.9-2.4); AST(SGOT) 31 U/L (15-37); Alanine Aminotransfer ALT/SGPT 49 U/L (16-61); Albumin, Serum 3.5 g/dL (3.2-5.0); Alkaline Phosphatase 75 U/L (45-117); Anion Gap 6 (5-15); BUN 17 mg/dL (7-18); Calcium,Total 9.6 mg/dL (8.5-10.1); Chloride 109 mmol/L (98-107); Cholesterol 150 mg/dL (200); EST Glomerular Filtration Rate 84 mL/min (>60); Est Glom Filt Rate - Afr Amer 102 mL/min (>60); Globulin 4.1 g/dL (2.2-4.2); Glucose 108 mg/dL (74-106); High Density Lipoprotein 33 mg/dL; Magnesium 2.5 mg/dL (1.6-2.6); Potassium 4.1 mmol/L (3.5-5.1); Protein, Total 7.6 g/dL (6.4-8.2); Sodium Level 140 mmol/L (136-145); Triglycerides 239 mg/dL; Uric Acid 5.5 mg/dL (3.5-7.2); Very Low Density Lipoprotein 48 mg/dL (5-40)
[2024-03-01 16:10] LABS: Hemoglobin A1c 5.6 % (3.8-5.6)
== END | disposition home or self-care (01) ==
LOC: MFPLAB 12:21
PROVIDERS: PCP Family Medicine; Visit Provider Family Medicine
DX: I10 Essential (primary) hypertension (principal); E55.9 Vitamin D deficiency, unspecified; M10.9 Gout, unspecified; R73.02 Impaired glucose tolerance (oral)
CPT/HCPCS: 36415; 80053; 80061; 82306; 83036; 83735; 84550; 85027

== ENCOUNTER → 2024-03-11 | Outpatient (CLI) | payer OTHER, SELFPAY ==
--- NOTE | 2024-03-11 11:15 | RAD_ITS ---
STUDY: X-RAY - ABDOMEN/PELVIS REASON FOR EXAM: Male, 48 years old. Hematuria. TECHNIQUE: Single AP view of the abdomen / pelvis on 3 images. COMPARISON: CT of the abdomen and pelvis dated January 11, 2024 showing multiple bilateral renal stones FINDINGS: Minimal atelectasis at both bases of the lungs. Multiple calcifications projected over both renal outlines, left greater than right. Normal bowel gas pattern with air seen to the rectosigmoid. Moderate amount of feces in the colon. The visualized liver, spleen and kidneys are grossly normal in size and morphology except for the renal calcifications. Normal soft tissue structures. Normal visualized osseous structures. RAD/Abd Inc Decub and/or Erect IMPRESSION: Multiple bilateral renal calculi as described, left greater than right. Electronically Signed: Bladimir Beth MD at 9:35 EDT ,
== END | disposition home or self-care (01) ==
PROVIDERS: PCP Family Medicine; Referring Provider Family Medicine; Visit Provider Family Medicine
DX: R31.9 Hematuria, unspecified (principal); Z87.442 Personal history of urinary calculi
CPT/HCPCS: 74019

== ENCOUNTER 2024-03-13 14:42 | Inpatient (IN) | payer OTHER, SELFPAY ==
[2024-03-13 14:42] VITALS: BP 152/98; PULSE 58; RESP 18; TEMP 36.1; O2SAT 96; BMI 38.9
--- NOTE | 2024-03-13 15:08 | EX.ED.DYSGE1 ---
HPI History of Present Illness Chief Complaint: Flank Pain Detail of Chief Complaint: Left flank pain Informant: patient Narrative Narrative: Patient presents to the emergency department with complaint of left flank pain insert 4 days ago. Patient states initially he just started with some hematuria 5 days ago that seem to clear the following day. Patient went to primary care physician's office and had a urinalysis and was told there is no infection. Patient has history of kidney stones. Really did not start having pain until 5 AM this morning. Currently rates his pain a 6 out of 10. Pain is left-sided radiates towards the left testicle and groin. He had some mild nausea. Denies dysuria urgency or frequency. [facility] Medical History (Updated 03/13/24 @ 16:[address] Duncan Bragg DO) Bacterial infection of skin Kidney calculi Home Medications ?Medication ?Instructions ?Recorded ?Last Taken ?Type amlodipine 10 mg tablet 10 mg PO DAILY #30 TABLETS 05/30/18 01/02/19 Rx Cozaar 12/13/21 Unknown History allopurinol 12/13/21 Unknown History Allergy/AdvReac Type Severity Reaction Status Date / Time No Known Allergies Allergy Verified 03/13/24 14:42 Surgical History (Updated 02/07/24 @ 22:[address] Zach Tubbs DO) H/O left wrist surgery History of ankle surgery Hx of shoulder surgery Social History Smoking Status: Never smoker ROS ROS ED Review of Systems ROS Unobtainable: other Constitutional Constitutional ED: Reports lethargy; Denies chills, fever(s), sweats or weight loss Eyes Eyes: Denies blurry vision, change in vision or diplopia ENT ENT ED: Denies rhinorrhea or sore throat Cardiovascular Cardiovascular: Denies chest pain, orthopnea or racing heartbeat Respiratory/Chest Respiratory/Chest: Denies cough, dyspnea, dyspnea on exertion, orthopnea or sputum Gastrointestinal Gastrointestinal: Reports abdominal pain and nausea; Denies diarrhea or vomiting Genitourinary Genitourinary ED: Denies dysuria, hematuria or urinary frequency Musculoskeletal Musculoskeletal: Reports back pain; Denies arthralgias, myalgias or neck pain Integumentary Denies abscess, Abrasions or rash Neurologic Neurologic: Denies headache(s) or weakness Psychiatric Psychiatric: Denies anxiety, depression or suicidal thoughts Endocrine Endocrinology: Denies polydipsia, polyphagia or polyuria Hematologic/Lymphatic Hematologic/Lymphatic: Denies easy bleeding, easy bruising or lymphadenopathy Allergic/Immunologic Allergic/Immunologic ED: Denies mouth swelling, tongue swelling or urticaria EXAM Physical Exam Const Vital Signs: 03/13/24 14:42 Temperature 97 F L Temperature Source Temporal Pulse Rate 58 L Respiratory Rate 18 Blood Pressure 152/98 H Blood Pressure Mean 116 Pulse Ox 96 Oxygen Delivery Method Room Air Positive well nourished and well developed General Appearance ED: well developed and NAD HEENT Reports TM's clear and moist mucous membranes normocephalic and atraumatic; Negative for trauma or tenderness Tympanic Membrane ED: Yes TM's clear Eyes PERRL and EOMs intact bilaterally General Eye ED: Negative for pale conjunctiva or scleral icterus Neck no lymphadenopathy, supple and no JVD General: Negative for tenderness Chest Wall inspection of chest normal and palpation of chest normal Chest: Negative for tenderness Resp normal respiratory effort and clear to auscultation bilaterally Effort and Inspection: Negative for respiratory distress or pain with movement Auscultation: Negative for rhonchi, wheezes or diminished lung sounds Cardio regular rate, regular rhythm, S1 normal heart sound, S2 normal heart sound and no murmurs Peripheral Pulses: pulses 2+ throughout GI normal to inspection, nondistended, normoactive bowel sounds, soft to palpation, non-distended and no masses GI Narrative: Mild tenderness over the left lower quadrant with some guarding. There is no rebound, rigidity, or peritoneal signs. No mass palpated. Back/Spine no thoracic nor lumbar tenderness Back/Spine Narrative: CVA tenderness on the left Extremity normal to inspection General Extremety ED: Negative for edema General Extremity: Negative for edema Neuro oriented x3, CN's II-XII intact bilaterally, no sensory deficits noted and gait normal Sensorium / Orientation: awake, alert, oriented to person, oriented to place and oriented to time Motor Exam: strength 5/5 throughout and strength abnormal Psych mental status grossly normal Skin no rashes or lesions noted and no wounds MDM MDM MDM Narrative Medical decision making narrative: Patient presents with left flank pain that started this morning. Has been having some hematuria as far back as 5 days ago. He has history of kidney stones. In the differential would be kidney stone versus UTI versus diverticulitis or other acute intra-abdominal process. IV line established. He was medicated with Toradol and morphine and Zofran. CBC with differential count of 8.5 with hemoglobin 14 and platelet count of 236. Chemistries unremarkable. BUN was 17 and creatinine 1.19. Urinalysis was positive for microscopic blood but no signs of infection. CT flank obtained showed a 7 mm stone at the left proximal ureter with mild hydro-. Patient developed more pain and had to be remedicated with milligram of Dilaudid. Will discuss case with urologist on-call whom patient has seen in the past. Discussed case with Dr. Salter who will admit patient for definitive care. Will discuss with patient as well. Lab Data Attestation: I reviewed the patient's lab results. Labs: Laboratory Results - last 24 hr 03/13/24 03/13/24 15:00 15:03 WBC 8.5 RBC 4.18 L Hgb 14.1 Hct 41.7 MCV 99.8 H MCH 33.7 H MCHC 33.8 RDW Std Deviation 57.1 H RDW Coeff of Evie 15.6 H Plt Count 236 MPV 9.6 Immature Gran % (Auto) 0.400 Neut % (Auto) 49.7 Lymph % (Auto) 36.3 [place] % (Auto) 11.9 H Eos % (Auto) 1.2 Baso % (Auto) 0.5 Absolute Neuts (auto) 4.3 Absolute Lymphs (auto) 3.09 Nucleated RBC % 0 Sodium 141 Potassium 3.8 Chloride 107 Carbon Dioxide 27.0 Anion Gap 7 BUN 17 Creatinine 1.19 Estim Creat Clear Calc 95.86 Est GFR (MDRD) Af Amer 83 Est GFR (MDRD) Non-Af 69 BUN/Creatinine Ratio 14.3 Glucose 109 H Calcium 9.3 Urine Color [place] Urine Clarity Sl. Cloudy Urine pH 5.0 Ur Specific [place] 1.030 Urine Protein 30 H Urine Glucose (UA) Normal Urine Ketones 5 H Urine Occult Blood 250 H Urine Nitrite Negative Urine Bilirubin Negative Urine Urobilinogen 1 H Ur Leukocyte Esterase 25 H Urine RBC 25-50 SEEN Urine WBC 5-10 SEEN Ur Squamous Epith Cells 0-5 SEEN Urine Bacteria RARE Urine Mucus 0 SEEN Radiography Diagnostic Testing: Clinical Impression(s) from Imaging Studies Abdomen/Pelvis CT 03/13/24 15:22 IMPRESSION: Mild left hydroureteronephrosis with a 0.7 cm calculus at the ureteropelvic junction. Additional nonobstructing bilateral renal calculi. Cholelithiasis. Electronically Signed: Kenny Madrigal MD at 16:25 EDT , Discharge Plan Triage Chief Complaint: Flank Pain ED Provider: Duncan Bragg Dx/Rx/DC Orders Clinical Impression: Urolithiasis, Intractable pain Prescriptions: No Action amlodipine 10 MG tablet 10 mg PO DAILY Qty: 30 0RF Cozaar allopurinol Primary Care Provider: Luis Enrique Paz Referrals: Luis Enrique Paz MD [Primary Care Provider] - Print Language: Croatian Disposition Disposition: Acute Care [facility]
[2024-03-13 15:15] LABS: Mucous, Urine 0 SEEN /hpf (<or=2+)
[2024-03-13] MEDS: 0.9% Normal Saline (1000mL) 1,000 ML 150 ML IV (15:17)
[2024-03-13] MEDS: Ondansetron 4 MG/2 ML Vial IV (15:17)
[2024-03-13] MEDS: Ketorolac 15 MG/ML Vial IV ×2 (15:17→20:00)
[2024-03-13 15:18] LABS: Color, Urine Amber (Yellow); Glucose, Dipstick Normal (Normal); Ketone-Dipstick 5 mg/dl (Negative); Leukocyte Esterase-Dipstick 25 /ul (Negative); Nitrite-Dipstick Negative (Negative); Occult Blood-Urine 250 /ul (Negative); Protein-Dipstick 30 mg/dl (Negative); Urine Bilirubin Dipstick Negative (Negative); Urine Clarity Sl. Cloudy (Clear); Urine Urobilinogen 1 mg/dl (Normal)
[2024-03-13] MEDS: Morphine 4 MG/ML Syringe IV (15:18)
[2024-03-13 15:20] LABS: Absolute Lymphocyte Count 3.09 X10^3/uL (0.83-4.51); Absolute Neutrophil Count 4.3 X10^3/uL (2.0-7.7); Basophil# 0.04 X10^3/uL; Basophil% 0.5 % (0-1); Eosinophils% 1.2 % (0-5); Hematocrit 41.7 % (40-54); Hemoglobin 14.1 g/dL (13.0-16.5); Lymphocyte # 3.09 X10^3/ul (0.83-4.51); Lymphocyte % 36.3 % (19-41); Mean Corp Hgb Conc 33.8 g/dL (32-36); Mean Corpuscular Hgb 33.7 pg (27.0-32.0); Mean Corpuscular Volume 99.8 fL (80-94); Mean Platelet Vol. 9.6 fl (6.2-12.0); Monocyte# 1.01 X10^3/uL; Monocyte% 11.9 % (0-10); NRBC Flagged by Analyzer 0 % (0-5); Neutrophil # 4.25 X10^3/uL (2.7-7.7); Neutrophil % 49.7 % (47-70); Platelet Count 236 K/mm3 (150-450); RBC Distribution Width CV 15.6 % (11.6-14.6); RBC Distribution Width SD 57.1 fl (35.1-43.9); Red Blood Count 4.18 M/mm3 (4.6-6.2); White Blood Count 8.5 K/mm3 (4.4-11.0)
--- NOTE | 2024-03-13 15:22 | CT_ITS ---
INDICATION: flank pain EXAMINATION: CT ABDOMEN AND PELVIS WITHOUT CONTRAST - CT Abdomen And Pelvis W/O Contrast Injection TECHNIQUE: Helically acquired images were obtained of the abdomen and pelvis without oral or IV contrast. A radiation dose optimization technique was used for this scan. IV Contrast dosage and agent: None. Oral contrast: None. RADIATION DOSAGE (If Supplied By Facility): CTDIvol = ( 21.23 ) mGy, DLP = ( 1188.28 ) mGycm COMPARISON: Prior study dated: 01/11/2024 FINDINGS: LOWER CHEST: Lung bases are clear. No cardiomegaly or pericardial effusion. LIVER: The liver is normal in size, shape, and attenuation. No focal mass. GALLBLADDER AND BILIARY TREE: The gallbladder is normally distended. Stone in the gallbladder fundus measuring 2.9 cm. No gallbladder wall thickening or edema. No intra- or extrahepatic biliary ductal dilation. PANCREAS: No focal cystic or solid mass. SPLEEN: Normal size without focal cystic or solid mass. ADRENAL GLANDS: No nodules. KIDNEYS AND URETERS: Normal renal size and position. Mild left hydronephrosis. There is a 0.7 cm calculus at the left ureteropelvic junction. This is 17 cm from the posterior axillary line and measures 1046 Hounsfield units. At least 3 additional nonobstructing left renal calculi, measuring up to 0.4 cm at the lower pole. On the right there are 2 additional calculi, measuring up to 0.5 cm at the lower pole. PERITONEUM: No ascites or free air. No other fluid collection. BOWEL: The stomach is unremarkable. Normal caliber small bowel. No obstruction. No colonic wall thickening or inflammatory changes. Scattered colonic diverticulosis without diverticulitis. No evidence of acute appendicitis. LYMPH NODES: No enlarged mesenteric or retroperitoneal lymph nodes. VESSELS: Aorta is non-dilated. Mild atherosclerotic calcifications. URINARY BLADDER: Unremarkable. REPRODUCTIVE ORGANS: No pelvic masses. ABDOMINAL WALL: No discrete abdominal or pelvic wall hernia. BONES: No acute or suspicious osseous abnormality. Mild degenerative changes of the spine. CT/Abdomen/Pelvis without Cont IMPRESSION: Mild left hydroureteronephrosis with a 0.7 cm calculus at the ureteropelvic junction. Additional nonobstructing bilateral renal calculi. Cholelithiasis. Electronically Signed: Kenny Madrigal MD at 16:25 EDT ,
[2024-03-13 15:26] LABS: Red Blood Cells-Urine 25-50 SEEN /hpf (0-5); Squamous Epithelial Cells - UA 0-5 SEEN /hpf (0-5); White Blood Cells 5-10 SEEN /hpf (0-5)
[2024-03-13 15:27] LABS: Bacteria RARE /hpf (None Seen)
[2024-03-13 15:32] LABS: Anion Gap 7 (5-15); BUN 17 mg/dL (7-18); BUN/Creat Ratio 14.3 RATIO (10-20); Calcium,Total 9.3 mg/dL (8.5-10.1); Chloride 107 mmol/L (98-107); Creatinine, Serum 1.19 mg/dL (0.70-1.30); EST Glomerular Filtration Rate 69 mL/min (>60); Est Glom Filt Rate - Afr Amer 83 mL/min (>60); Estimated Creatinine Clearance 95.86 ml/min; Glucose 109 mg/dL (74-106); Potassium 3.8 mmol/L (3.5-5.1); Sodium Level 141 mmol/L (136-145)
[2024-03-13] MEDS: HYDROmorphone 1 MG/ML Syringe IV (16:36)
[2024-03-13 16:42] VITALS: BP 156/104; PULSE 81; RESP 16; O2SAT 100
--- NOTE | 2024-03-13 17:02 | HP.PCM_ITS ---
HPI - General General Date of Admission: 03/13/24 Date of Service: 03/13/24 Chief Complaint: 7 mm left proximal ureteral calculi HPI Narrative SHAYNA DENNY, is a 48 M who presents with a 7 mm stone in the proximal ureter he has intractable pain the emergency room has not been able to get his pain under control and then they asked me and admit the patient the patient will be admitted to the hospital for pain control and will probably have to plan for intervention to laser to treat the stone. [facility] Medical History Bacterial infection of skin Kidney calculi Home Medications ?Medication ?Instructions ?Recorded ?Last Taken ?Type amlodipine 10 mg tablet 10 mg PO DAILY #30 TABLETS 05/30/18 01/02/19 Rx allopurinol 300 mg tablet 300 mg PO DAILY 03/13/24 Unknown History duloxetine 60 mg capsule,delayed 60 mg PO DAILY 03/13/24 Unknown History release losartan 100 mg tablet 100 mg PO DAILY 03/13/24 Unknown History potassium citrate 10 mEq (1,080 10 meq PO BID 03/13/24 Unknown History mg) tablet,extended release Allergy/AdvReac Type Severity Reaction Status Date / Time No Known Allergies Allergy Verified 03/13/24 14:42 Surgical History H/O left wrist surgery History of ankle surgery Hx of shoulder surgery Social History Smoking Status: Never smoker ROS Constitutional Constitutional: Denies chills, fever(s) or malaise Eyes Eyes: Denies blurry vision or change in vision ENT HEENT: Reports none Cardiovascular Cardiovascular: Denies chest pain or palpitations Respiratory/Chest Respiratory/Chest: Denies cough or shortness of breath with exertion Gastrointestinal Gastrointestinal: Denies abdominal pain, constipation or diarrhea Musculoskeletal Musculoskeletal: Denies back pain, joint stiffness or joint swelling Integumentary Integumentary: Denies dry skin, jaundice, lesions or rash Neurologic Neurologic: Denies confusion, syncope or weakness Psychiatric Psychiatric: Reports none; Denies anxiety or depression Endocrine Endocrinology: Denies excessive sweating, fatigue or flushing Hematologic/Lymphatic Hematologic/Lymphatic: Denies anemia, easy bleeding or easy bruising Vital Signs Vital Signs Vital Signs: 03/13/24 14:42 03/13/24 16:42 Temperature 97 F L Temperature Source Temporal Pulse Rate 58 L 81 Respiratory Rate 18 16 Blood Pressure 152/98 H 156/104 H Blood Pressure Mean 116 121 Pulse Ox 96 100 Oxygen Delivery Method Room Air Room Air Weight Weight: 119.6 kg Body Mass Index (BMI) 38.9 Physical Exam Const alert and oriented x3 General Appearance: cooperative HEENT normocephalic, head/scalp atraumatic, EAC's normal and TM's normal bilaterally Eyes PERRL and EOMs intact bilaterally Pupil: sluggish Neck no lymphadenopathy, supple and no JVD General: trachea midline Lymph Lymphatic: no lymphadenopathy noted, lymphedema and lymphadenopathy Resp normal respiratory effort, normal air movement and clear to auscultation bilaterally Cardio regular rate, regular rhythm and peripheral pulses 2+ throughout GI soft to palpation, non-tender and non-distended Extremity normal capillary refill and no clubbing, cyanosis or edema General Extremity: no tenderness to palpation of joints or extremities Skin no rashes or lesions noted General Skin Exam: turgor normal Lesions: no lesions Rashes: no rashes Neuro CN's II-XII intact bilaterally Speech: speech normal Motor Exam: strength 5/5 throughout; Negative for general weakness Psych thought process normal, cooperative and affect normal Appearance: appropriate Results Medical Records Data Attestation: I reviewed the patient's medical records Lab / Micro Data 03/13/24 15:00 03/13/24 15:00 Labs: Laboratory Results - last 24 hr 03/13/24 15:00: WBC 8.5, RBC 4.18 L, Hgb 14.1, Hct 41.7, MCV 99.8 H, MCH 33.7 H, MCHC 33.8, RDW Std Deviation 57.1 H, RDW Coeff of Evie 15.6 H, Plt Count 236, MPV 9.6, Immature Gran % (Auto) 0.400, Neut % (Auto) 49.7, Lymph % (Auto) 36.3, [place] % (Auto) 11.9 H, Eos % (Auto) 1.2, Baso % (Auto) 0.5, Absolute Neuts (auto) 4.3, Absolute Lymphs (auto) 3.09, Nucleated RBC % 0, Sodium 141, Potassium 3.8, Chloride 107, Carbon Dioxide 27.0, Anion Gap 7, BUN 17, Creatinine 1.19, Estim Creat Clear Calc 95.86, Est GFR (MDRD) Af Amer 83, Est GFR (MDRD) Non-Af 69, BUN/Creatinine Ratio 14.3, Glucose 109 H, Calcium 9.3 03/13/24 15:03: Urine Color [place], Urine Clarity Sl. Cloudy, Urine pH 5.0, Ur Specific [place] 1.030, Urine Protein 30 H, Urine Glucose (UA) Normal, Urine Ketones 5 H, Urine Occult Blood 250 H, Urine Nitrite Negative, Urine Bilirubin Negative, Urine Urobilinogen 1 H, Ur Leukocyte Esterase 25 H, Urine RBC 25-50 SEEN, Urine WBC 5-10 SEEN, Ur Squamous Epith Cells 0-5 SEEN, Urine Bacteria RARE, Urine Mucus 0 SEEN Imaging Radiology Impression Abdomen/Pelvis CT 03/13/24 15:22 IMPRESSION: Mild left hydroureteronephrosis with a 0.7 cm calculus at the ureteropelvic junction. Additional nonobstructing bilateral renal calculi. Cholelithiasis. Electronically Signed: Kenny Madrigal MD at 16:25 EDT Reading Location ID and State: [facility] / [place] Tel , Service support , Assessment & Plan Assessment/Plan (1) Intractable pain: PLAN: Admit to the hospital for intractable pain, and will plan for surgical intervention if he Plast fails to pass the stone (2) Urolithiasis:
--- NOTE | 2024-03-13 17:04 | DCINST_ITS ---
Discharge Instructions Diet Discharge Diet: No restrictions Activity Discharge Activity: Return to Normal Activity and May Not Drive (while taking narcotic pain medications.) Dressing / Incision Call your doctor if you observe: Fever of 101 or Higher Follow Up Care Please Follow Up With: Delroy Salter MD When: Call [phone] for an appointment Test Results: Test results from this visit will be discussed in further detail at your follow- up appointment, if applicable. Discharge Plan Admission Admit Date/Time: 03/13/24 16:59 Attending Provider: Delroy Salter Primary Care Provider: Luis Enrique Paz Discharge Orders/Prescriptions Prescriptions: No Action amlodipine 10 MG tablet 10 mg PO DAILY Qty: 30 0RF duloxetine 60 mg capsule,delayed release(DR/EC) 60 mg PO DAILY potassium citrate 10 mEq (1,080 mg) tablet extended release 10 meq PO BID allopurinol 300 mg tablet 300 mg PO DAILY losartan 100 mg tablet 100 mg PO DAILY Referrals / Follow Up: Luis Enrique Paz MD [Primary Care Provider] -
[2024-03-13 17:38] VITALS: BP 140/87; PULSE 67; RESP 16; TEMP 36.4; O2SAT 100
[2024-03-13 17:58] VITALS: BMI 38.8
[2024-03-13 18:15] VITALS: BP 153/93; PULSE 55; RESP 16; TEMP 36.3; O2SAT 94
[2024-03-13] MEDS: oxyCODONE 5 MG Tablet PO (18:17)
[2024-03-13] MEDS: Metoclopramide 10 MG/2 ML Vial IV (18:17)
[2024-03-13] MEDS: 0.9% Normal Saline (1000mL) 1,000 ML 50 ML IV (18:28)
[2024-03-13] MEDS: Cefazolin 1 GM/50 ML BAG IV ×2 (18:28→22:24)
--- NOTE | 2024-03-13 19:00 | NURSING ---
Emergency documentation now in effect, 03/13/24 @[id number]
[2024-03-13 20:21] VITALS: BMI 364.4
[2024-03-13 22:19] VITALS: BP 149/92; PULSE 65; RESP 18; TEMP 36.8; O2SAT 98
[2024-03-13] MEDS: Docusate Sodium 100 MG Capsule 200 MG PO (22:21)
[2024-03-13] MEDS: POTASSIUM CITRATE 10 MEQ TABLET.ER PO (22:21)
[2024-03-14] VITALS (10 sets, daily range): BP systolic 95–156; BP diastolic 66–99; PULSE 60–80; RESP 14–18; TEMP 36.4–36.9; O2SAT 92–99
[2024-03-14] MEDS: oxyCODONE 5 MG Tablet PO ×2 (00:08→06:16)
[2024-03-14] MEDS: Ketorolac 15 MG/ML Vial IV ×2 (03:06→09:16)
[2024-03-14] MEDS: Metoclopramide 10 MG/2 ML Vial IV (03:18)
[2024-03-14 05:35] LABS: Hematocrit 39.7 % (40-54); Hemoglobin 13.4 g/dL (13.0-16.5); Mean Corp Hgb Conc 33.8 g/dL (32-36); Mean Corpuscular Hgb 33.7 pg (27.0-32.0); Mean Corpuscular Volume 99.7 fL (80-94); Mean Platelet Vol. 9.3 fl (6.2-12.0); Platelet Count 212 K/mm3 (150-450); RBC Distribution Width CV 15.4 % (11.6-14.6); RBC Distribution Width SD 56.4 fl (35.1-43.9); Red Blood Count 3.98 M/mm3 (4.6-6.2); White Blood Count 10.8 K/mm3 (4.4-11.0)
--- NOTE | 2024-03-14 07:16 | PCM.CONS.B ---
Consult Date of Consult: 03/14/24 Reason for Consult 48-year-old male with a stone in the proximal left ureter plan for ureteroscopy laser and stent today at noon
[2024-03-14] MEDS: 0.9% Saline Lock 10 ML Syringe IV ×3 (09:17→13:50)
[2024-03-14] MEDS: Morphine 2 MG/ML Syringe IV (10:00)
[2024-03-14] MEDS: Lactated Ringers 1,000 ML 15 ML IV (11:21)
--- NOTE | 2024-03-14 12:22 | PCM.PRE.AN2 ---
ASA Classification* ASA Classification ASA Classification: 3 and E Assessment & Plan Anesthesia* Anesthesia Assessment Anesthesia Assessment: Discussed sedation and/or anesthesia options, risks, benefits, and alternatives with patient/parents/legal guardian/POA. Questions invited. The patient/parents/legal guardian/POA seems to understand and agrees to proceed with anesthesia plan. Reviewed the physical assessment, medical history, allergy history and patient home medications list prior to surgery/procedure/anesthetic and documented any changes. Performed airway and anesthesia risk assessments. Anesthesia Type Anesthesia Type: General (see written pre anesthesia record for full assessment) Anesthesia Focused Assessment* Temperature: 97.6 F Pulse Rate: 69 Blood Pressure: 132/74 Respiratory Rate: 14 Pulse Ox: 95 Airway Assessment Mouth opens: >3 cm Mallampati Score: II Focused Labs Anesthesia Preop lab: CBC WBC 10.8 K/mm3 (4.4-11.0) 03/14/24 05:13 RBC 3.98 M/mm3 (4.6-6.2) L 03/14/24 05:13 Hgb 13.4 g/dL (13.0-16.5) 03/14/24 05:13 Hct 39.7 % (40-54) L 03/14/24 05:13 Plt Count 212 K/mm3 (150-450) 03/14/24 05:13 CHEMISTRY Potassium 3.8 mmol/L (3.5-5.1) 03/13/24 15:00 Sodium 141 mmol/L (136-145) 03/13/24 15:00 Magnesium 2.5 mg/dL (1.6-2.6) 03/01/24 12:22 BUN 17 mg/dL (7-18) 03/13/24 15:00 Creatinine 1.19 mg/dL (0.70-1.30) 03/13/24 15:00 Glucose 109 mg/dL (74-106) H 03/13/24 15:00 TSH 1.85 uIU/mL (0.358-3.74) 05/16/22 15:59 COAG PT 14.2 SECONDS (11.7-14.9) 05/30/18 05:25 Pre-Assessment Diagnosis/Proposed Procedure Planned Operative Procedure(s): cysto stent Anesthesia History Anesthesia History - low voltage technician: Anesthesia History - low voltage technician Hx Hospitalization No 06/16/20 16:18 Any Problems With Anesthesia No 03/13/24 20:24 Cholinesterase deficiency No 03/13/24 20:24 You/Your Family Experience No 03/13/24 20:24 fever (hyperthermia) with Relationship Recent Exposure to Contagious No 03/13/24 20:24 Disease Does patient have nerve No 03/13/24 20:24 stimulator Patient instructed to have device shut off --Does patient have Pacemaker No 03/13/24 20:21 or ICD? When Was Last Pacemaker Check QUESTION #4 FULL TEXT: You/Your Family Experience fever (hyperthermia) with Anesthesia Last Oral Intake Last Oral intake: Last Oral Intake NPO since 00:00 03/13/24 20:21 Meds taken in AM with sips of water? Meds patient instructed to take am of surgery PONV PONV - low voltage technician: PONV - low voltage technician Female HX of Motion Sickness HX of N/V After Surgery Non-Smoker Duration of Surgery greater than 60 minutes Number of Risk Factors PONV Score Height & Weight Height & Weight: Anesthesia: Height & Weight Height 5 ft 9 in 03/13/24 20:21 Weight: 1119.4 kg 03/13/24 20:21 Body Mass Index (BMI) 364.4 03/13/24 20:21 Respiratory Assessment Respiratory Assessment - low voltage technician: Respiratory Tract Infection Hx - low voltage technician Hx Respiratory Tract Infection No 03/13/24 20:24 STOP Sleep Apnea STOP Sleep Apnea - low voltage technician: STOP Sleep Apnea - low voltage technician Hx Hypertension Yes: controlled with meds 03/13/24 17:58 Hx Sleep Apnea Yes 03/13/24 17:58 CPAP Yes: doesnt wear machine 03/13/24 17:58 BIPAP No 03/13/24 17:58 Do you snore loudly (louder than talking or can be heard Do you often feel tired/ fatigued/ sleepy during daytime? Has anyone observed you stop breathing during sleep? STOP Results Positive 03/13/24 17:58 QUESTION #5 FULL TEXT : Do you snore loudly (louder than talking or can be heard through closed doors)? Tobacco Use History Tobacco Use History - low voltage technician: Tobacco Use History - low voltage technician Tobacco Use Smoking Status Never smoker 03/13/24 17:58 Hx Tobacco Use No 03/13/24 17:58 Years Smoking Packs Smoked per Day Smoking Cessation Date was within the last 15 years Hx Smoking Cessation Date Hx Smoking Cessation Counseling Hematologic Medial History Hematologic Hx - low voltage technician: Hematologic Medical Hx - documentation analyst Hx of Blood Transfusion No 03/13/24 17:58 Hx of Transfusion in last 3 No 03/13/24 17:58 Months Date of Last Transfusion (if within last 3 months) Ever experience any problems No 03/13/24 17:58 with transfusion(s)? Specify any problems Hx of Preganancy in last 3 N/A 03/13/24 17:58 Months Nurse Filling Out Transfusion [email or web address] 03/13/24 17:58 & Questions: Date: 03/13/24 03/13/24 17:58 Time: 18:35 03/13/24 17:58 Patient unable to answer at this time (ie. confused, unrespo /Reproduction History /Reproductive History - low voltage technician: /Reproductive Hx- low voltage technician Hx Now No 03/13/24 20:24 Gestational Age (in weeks): EDC: Hx Hx Para Hx Section SAB No 03/13/24 20:24 Active Medications Active Medications: Current Medications Generic Name Dose Route Start Last Admin Trade Name Freq PRN Reason Stop Dose Admin Al Hydrox/Mg Hydrox/Simethicone 30 ml 03/13/24 16:58 Mag /Aluminum/Simeth Wch Udc 30 Ml Oral.Susp PO Q4H PRN PRN HEARTBURN Allopurinol 300 mg 03/14/24 10:00 Allopurinol 300 Mg Tablet PO DAILY GAVIN Amlodipine Besylate 10 mg 03/14/24 10:00 Amlodipine 10 Mg Tablet PO DAILY [facility] Protocol Docusate Sodium 200 mg 03/13/24 22:00 03/13/24 22:21 Docusate Sodium 100 Mg Capsule PO 200 mg BID GAVIN Administration Duloxetine HCl 60 mg 03/14/24 10:00 Duloxetine Hcl 60 Mg Capsule PO DAILY GAVIN Sodium Chloride 1,000 mls @ 50 mls/hr 03/13/24 17:00 03/14/24 11:15 IV 0 mls/hr .Q20H GAVIN Infusion Lactated Ringer's 1,000 mls @ 15 mls/hr 03/14/24 11:30 03/14/24 11:21 IV 15 mls/hr .Q48H GAVIN Administration Cefazolin Sodium 2 gm/ Sodium 110 mls @ 150 mls/hr 03/14/24 12:00 Chloride IV 03/14/24 12:43 X1 ONE Ketorolac Tromethamine 15 mg 03/13/24 16:58 03/14/24 09:16 Ketorolac 15 Mg/Ml Vial IV 03/15/24 16:59 15 mg Q6H PRN PRN Administration Pain Score 1-10 Losartan Potassium 100 mg 03/14/24 10:00 Losartan Potassium 100 Mg Tablet PO DAILY [facility] Protocol Metoclopramide HCl 10 mg 03/13/24 16:58 03/14/24 03:18 Metoclopramide 10 Mg/2 Ml Vial IV 10 mg Q8H PRN PRN Administration NAUSEA/VOMITING Morphine Sulfate 2 mg 03/13/24 16:58 03/14/24 10:00 Morphine 2 Mg/Ml Syringe IV 2 mg Q2H PRN Administration Pain Score 6-10 Ondansetron HCl 4 mg 03/13/24 16:58 Ondansetron 4 Mg/2 Ml Vial IV Q8H PRN NAUSEA/VOMITING Oxycodone HCl 5 - 10 mg 03/13/24 16:58 03/14/24 06:16 Oxycodone 5 Mg Tablet PO 5 mg Q6H PRN PRN Administration Pain Score 4-10 Potassium Citrate 10 meq 03/13/24 22:00 03/14/24 11:48 Potassium Citrate 10 Meq Tablet.Er PO Not Given BIDCM [facility] Sodium Chloride 10 - 40 ml 03/13/24 17:59 03/14/24 10:00 0.9% Saline Lock 10 Ml Syringe IV 10 ml UD PRN Administration SALINE FLUSH PFSH Medical History Bacterial infection of skin Kidney calculi Home Medications ?Medication ?Instructions ?Recorded ?Last Taken ?Type amlodipine 10 mg tablet 10 mg PO DAILY #30 TABLETS 05/30/18 03/12/24 Rx allopurinol 300 mg tablet 300 mg PO DAILY gout 03/13/24 03/12/24 History duloxetine 60 mg capsule,delayed 60 mg PO DAILY anxiety/depression 03/13/24 03/12/24 History release losartan 100 mg tablet 100 mg PO DAILY bp 03/13/24 03/12/24 History potassium citrate 10 mEq (1,080 10 meq PO BID kidney stones 03/13/24 03/12/24 History mg) tablet,extended release Allergy/AdvReac Type Severity Reaction Status Date / Time No Known Allergies Allergy Verified 03/13/24 14:42 Surgical History H/O left wrist surgery History of ankle surgery Hx of shoulder surgery Social History Smoking Status: Never smoker Review of Systems (Anesthesia) ROS Narrative System reviewed and no additional complaints, except as documented.
[2024-03-14] MEDS: Cefazolin 2 GM in 0.9% Normal Saline (100mL Bag) 100 ML IV (12:33)
--- NOTE | 2024-03-14 12:34 | DCINST_ITS ---
Discharge Instructions Diet Discharge Diet: No restrictions Activity Discharge Activity: Return to Normal Activity and May Not Drive (while taking narcotic pain medications.) Dressing / Incision Call your doctor if you observe: Fever of 101 or Higher Follow Up Care Please Follow Up With: Delroy Salter MD When: Call [phone] for an appointment Test Results: Test results from this visit will be discussed in further detail at your follow- up appointment, if applicable. Discharge Plan Admission Admit Date/Time: 03/13/24 17:00 Primary Reason for Your Visit: laser of left kidney stone Attending Provider: Delroy Salter Primary Care Provider: Luis Enrique Paz Discharge Orders/Prescriptions Prescriptions: Continued amlodipine 10 MG tablet 10 mg PO DAILY Qty: 30 0RF duloxetine 60 mg capsule,delayed release(DR/EC) 60 mg PO DAILY potassium citrate 10 mEq (1,080 mg) tablet extended release 10 meq PO BID allopurinol 300 mg tablet 300 mg PO DAILY losartan 100 mg tablet 100 mg PO DAILY Referrals / Follow Up: Delroy Salter MD [Med Staff - Active Staff] - Luis Enrique Paz MD [Primary Care Provider] - Disposition Disposition (needs filled in before D/C Order can be placed): Home, Self Care
--- NOTE | 2024-03-14 12:35 | PCM.OPRPT ---
Report of Operation Date of Procedure: 03/14/24 Pre-Operative Diagnosis: left kidney stone Post-Operative Diagnosis: same Surgery/Procedure Performed:: cystoscopy, balloon dilation of left ureter, left ureteroscopy laser stone, no stent Description of Surgical Findings:: This is a patient who presents to the hospital for treatment for an obstructing ureter calculi. I discussed with the patient how the surgery would be performed and we reviewed the risks and benefits of the surgery. The risk and benefits include the risk of failure to remove the stone completely and that the patient may need multiple procedures. We discussed the risk of an infection, the risk of bleeding. We discussed the very rare risk of serious complicated injury to the ureter. The patient understands that if the stone is not able to be removed safely that we may abort the procedure and place a stent. After full discussion and all questions address with the patient the consent form was signed the side was marked appropriately and the patient was taken back to the operating room for the procedure. Findings: The patient was taken back to the operating room. After induction of anesthesia by the anesthesiology team the patient was placed in dorsolithotomy position. The genitals were prepped and draped in usual sterile fashion. I went into the bladder with a 21 Korean rigid cystourethroscope through the urethra. Upon entering the bladder I inspected the trigone the left and right ureteral orifice and the bladder itself. I then cannulated the ureteral orifice and advanced a 0.038 Glidewire up into the kidney. Then a ureteral balloon dilator was advanced over the wire and the distal ureter was balloon dilated with a 12 Fr x 5cm balloon dilator. After 3 minutes of dilating the ureter the balloon was backloaded off the 0.038 glidewire over the 0.038 guidewire I went in with the flexible 7.5fr ureteroscope. I was able to go inside with the 7.5Fr utereroscope and I pulled out the guidewire and then through the ureteroscope I engage the stone with laser lithotripsy using a 270miron laser fiber with energy setting of 6 Hertz and 0.6 J until the stone was lasered into tiny little pieces that should pass on their own. I then removed the ureteroscopy in retrograde fastion inspecting ureter on the way out. I then drained the patient's bladder and the cystoscope was removed and the patient was taken back to the recovery room in good position. The patient was given discharge instructions to call the office for a followup.. Surgeon: Delroy Salter Type of Anesthesia: General Drains: no stent Admit VTE Documentation VTE Present on Admission: No VTE Mechan Device Prophylaxis: SCD's VTE Pharm Prophylaxis ordered?: No
--- NOTE | 2024-03-14 13:12 | PCM.POST.ANE ---
Anesthesia: Postop Eval I Current Vital Signs Temperature: 98.4 F Pulse Rate: 64 Blood Pressure: 95/68 Respiratory Rate: 14 Pulse Ox: 94 Oxygen Delivery Method: Room Air (with 100mm OA) Assessment Airway patent: Yes Spontaneous unlabored respirations: Yes Mental status: Asleep nausea: No Vomiting: No Anesthesia Complication: No Fluid Hydration Crystalloid volume administer (ml): 800 Total IV fluid infused: 800 Progress Note Anesthesia document: Postop Eval 1 completed: Yes
[2024-03-14] MEDS: Ondansetron 4 MG/2 ML Vial IV (13:50)
--- NOTE | 2024-03-14 14:35 | CASEMGMT ---
MARA KING Assessment Face to Face with patient for initial transition planning/care coordination assessment. MARA KING introduced self and role at [facility], pt voices understanding. Pt is A&Ox4 and is resting comfortably in bed and is calm. Care providers, pharmacy, and demographics verified. Admitting dx:Kidney Stone LACE Strata: 2 PCP: Luis Enrique Paz Specialists: Leighann (Puljyame) Preferred Pharmacy: [facility] Insurance: [facility]ISSY Prescription Benefit: Yes LNOK: Shahnaz Hardwick (W) Living Arrangements: Pt lives with his and 2 kids (ages 22 and 19) in a single story home with 2 steps to enter ADLs/IADLs: Ind Transportation: Self, DME: CPAP @ [facility] with additional oxygen. Pt denies all other DME needs HHC/SNF: Denies Hx or needs Pt?s goal: Home Plan: Home no needs 6-click is 24. Pt denies further needs and feels safe discharging home today with his family. Jayden Box RN, CM
--- NOTE | 2024-03-14 14:46 | PCM.POSTANE2 ---
Anesthesia Postop Eval I Sum Postop Eval Completion status Anesthesia document: Postop Eval 1 completed: Yes Anesthesia Postop Eval I Summary Anesthesia Postop Eval I Summary: Anesthesia Postop Eval I: Assessment Summary Airway patent Yes 03/14/24 13:13 [email or web address] Spontaneous unlabored Yes 03/14/24 13:13 [email or web address] respirations Mental status Asleep 03/14/24 13:13 [email or web address] nausea No 03/14/24 13:13 [email or web address] Vomiting No 03/14/24 13:13 [email or web address] Anesthesia Postop Eval I: Fluid Summary Crystalloid volume administer 800 03/14/24 13:13 [email or web address] (ml) Colloids volume administered ( ml) Blood Product volume administered (ml) Total IV fluid infused 800 03/14/24 13:13 [email or web address] Anesthesia Postop Eval I: Summary Notes Anesthesia Complication No 03/14/24 13:13 [email or web address] Anesthesia Complication Comment: Post-operative progress note Anesthesia: Postop Eval II Evaluation Mental status: Awake and Calm Pain Level: 1 nausea: No Vomiting: No Complications Anesthesia Complication: No
== END 2024-03-14 15:33 | disposition home or self-care (01) | DRG 694 ==
LOC: ED 16:47 → PCU 17:06
PROVIDERS: Admitting Provider Urology; Emergency Provider Emergency Medicine; PCP Family Medicine; Visit Provider Urology
PROC: 0TJ98ZZ Inspection of Ureter, Via Natural or Artificial Opening Endoscopic (ICD-10-PCS; CPT 52352; principal; 2024-03-14 11:50)
DX: N13.2 Hydronephrosis with renal and ureteral calculous obstruction (principal); I10 Essential (primary) hypertension; Z79.899 Other long term (current) drug therapy; Z87.442 Personal history of urinary calculi
CPT/HCPCS: 36415; 74176; 80048; 81001; 85025; 85027; 93005; 99284; J7030; J7120; A4216; C1769; J2405

== ENCOUNTER 2024-03-16 19:33 | Observation (INO) | payer OTHER, SELFPAY ==
[2024-03-16] VITALS (7 sets, daily range): BP systolic 160–194; BP diastolic 85–106; PULSE 54–72; RESP 15–18; TEMP 36.3–36.8; O2SAT 94–98; BMI 38.7; BMI 38.8
--- NOTE | 2024-03-16 20:00 | ED.VIS.BACK ---
HPI History of Present Illness Chief Complaint: Back [facility] Medical History Bacterial infection of skin Kidney calculi Home Medications ?Medication ?Instructions ?Recorded ?Last Taken ?Type amlodipine 10 mg tablet 10 mg PO DAILY blood pressure #30 05/30/18 03/12/24 Rx TABLETS allopurinol 300 mg tablet 300 mg PO DAILY gout 03/13/24 03/12/24 History duloxetine 60 mg capsule,delayed 60 mg PO DAILY anxiety/depression 03/13/24 03/12/24 History release losartan 100 mg tablet 100 mg PO DAILY bp 03/13/24 03/12/24 History potassium citrate 10 mEq (1,080 10 meq PO BID kidney stones 03/13/24 03/12/24 History mg) tablet,extended release Allergy/AdvReac Type Severity Reaction Status Date / Time No Known Allergies Allergy Verified 03/16/24 19:34 Surgical History H/O left wrist surgery History of ankle surgery Hx of shoulder surgery Social History Smoking Status: Never smoker EXAM Physical Exam Const Vital Signs: 03/16/24 19:34 03/16/24 19:36 Temperature 97.4 F L 98.3 F Temperature Source Temporal Oral Pulse Rate 59 L 57 L Respiratory Rate 18 15 Blood Pressure 171/98 H 194/106 H Blood Pressure Mean 122 135 Pulse Ox 98 98 Oxygen Delivery Method Room Air Room Air Discharge Plan Triage Chief Complaint: Back ED Midlevel Provider: Jori Mckeon ED Provider: Martin Reveles Dx/Rx/DC Orders Prescriptions: No Action amlodipine 10 MG tablet 10 mg PO DAILY Qty: 30 0RF duloxetine 60 mg capsule,delayed release(DR/EC) 60 mg PO DAILY potassium citrate 10 mEq (1,080 mg) tablet extended release 10 meq PO BID allopurinol 300 mg tablet 300 mg PO DAILY losartan 100 mg tablet 100 mg PO DAILY Primary Care Provider: Luis Enrique Paz Referrals: Luis Enrique Paz MD [Primary Care Provider] - Print Language: Sammarinese
--- NOTE | 2024-03-16 20:02 | EDS_ITS ---
HPI <KYLAH Turner - Last Filed: 03/16/24 22:15> History of Present Illness Chief Complaint: Back Narrative Narrative: Patient is a 48-year-old male with history of hypertension, history of kidney stones who presents to the emergency department with complaints of left-sided flank pain. Patient was recently seen by Dr. Salter 2 days ago and had a 7 mm stone lasered. Per the patient as well as the note, the procedure went well. Patient states on he felt better, however over the last 24 hours the pain has been more severe and he is here for evaluation. He states that Tylenol is not helping his pain, he is also concerned because he is feeling more nauseous. Here for evaluation. PFSH <KYLAH Turner - Last Filed: 03/16/24 22:15> PFSH Medical History Bacterial infection of skin Kidney calculi Home Medications ?Medication ?Instructions ?Recorded ?Last Taken ?Type amlodipine 10 mg tablet 10 mg PO DAILY blood pressure #30 05/30/18 03/12/24 Rx TABLETS allopurinol 300 mg tablet 300 mg PO DAILY gout 03/13/24 03/12/24 History duloxetine 60 mg capsule,delayed 60 mg PO DAILY anxiety/depression 03/13/24 03/12/24 History release losartan 100 mg tablet 100 mg PO DAILY bp 03/13/24 03/12/24 History potassium citrate 10 mEq (1,080 10 meq PO BID kidney stones 03/13/24 03/12/24 History mg) tablet,extended release sildenafil 100 mg tablet 50 mg PO PRN PRN health 03/16/24 Unknown History Allergy/AdvReac Type Severity Reaction Status Date / Time No Known Allergies Allergy Verified 03/16/24 19:34 Surgical History H/O left wrist surgery History of ankle surgery Hx of shoulder surgery Social History Smoking Status: Never smoker ROS <KYLAH Turner - Last Filed: 03/16/24 22:15> ROS ED ROS Narrative Constitutional: Negative for fever, chills, weight loss, weakness Eyes: Negative for vision loss, vision change, double vision ENT: Negative for any sore throat, ear pain, congestion Cardiovascular: Negative for any chest pain, tightness, palpitations Respiratory: Negative for any cough, sputum production, hemoptysis, dyspnea, dyspnea on exertion, orthopnea Gastrointestinal: Negative for any abdominal pain, vomiting, diarrhea, constipation, blood in stool, blood in vomit. Positive for nausea : Negative for any urinary frequency, dysuria, retention, blood in urine Muscle skeletal: Negative for any neck pain. Positive for left-sided back pain Neurological: Negative for any headache, syncope, dizziness Skin: Negative for any rashes, itching, abrasions, lacerations Psychiatric: Negative for any depression, anxiety, stress, suicidal ideation, homicidal ideation Hematologic: Negative for any excessive bruising, easy bleeding EXAM <KYLAH Turner - Last Filed: 03/16/24 22:15> Physical Exam Narrative Exam Narrative: Vital signs reviewed. Patient does appear uncomfortable, patient's blood pressure slightly elevated. HEET: Head normocephalic atraumatic, TMs clear bilaterally. Posterior pharynx is clear, moist mucous membranes. Nares clear bilaterally. Neck: Supple with no lymphadenopathy or tenderness. No signs of meningismus. Cardiac: Regular rate and rhythm no murmurs gallops or rubs, equal peripheral pulses bilaterally. Respiratory: Lungs clear to auscultation bilaterally. No chest tenderness. Abdomen: Soft, nontender, nondistended. No abdominal bruit or pulsatile masses. No hepatosplenomegaly Extremities: No peripheral edema, no signs of gross trauma or deformity. Active full range of motion of all extremities. Neuro: Cranial nerves II through XII intact, no focal neurological deficits. Skin: Clean dry and intact with no rash, purpura, petechiae, vesicles or pustules. Backs/flank: Positive for left-sided CVA tenderness, no midline spinal tenderness, no deformity. Psych: Normal mood and affect. No SI, HI or acute psychosis. Const Vital Signs: 03/16/24 19:34 03/16/24 19:36 03/16/24 20:36 Temperature 97.4 F L 98.3 F 98 F Temperature Source Temporal Oral Oral Pulse Rate 59 L 57 L 54 L Respiratory Rate 18 15 18 Blood Pressure 171/98 H 194/106 H 165/86 H Blood Pressure Mean 122 135 112 Pulse Ox 98 98 98 Oxygen Delivery Method Room Air Room Air Room Air 03/16/24 21:00 03/16/24 22:00 03/16/24 22:16 Temperature 98.3 F 97.8 F 98.3 F Temperature Source Oral Oral Pulse Rate 72 60 56 L Respiratory Rate 15 18 18 Blood Pressure 163/85 H 173/88 H 173/88 H Blood Pressure Mean 111 116 116 Pulse Ox 95 97 95 Oxygen Delivery Method Room Air Room Air <Dr. Martin Reveles DO - Last Filed: 03/16/24 22:34> Physical Exam Const Vital Signs: 03/16/24 19:34 03/16/24 19:36 03/16/24 20:36 Temperature 97.4 F L 98.3 F 98 F Temperature Source Temporal Oral Oral Pulse Rate 59 L 57 L 54 L Respiratory Rate 18 15 18 Blood Pressure 171/98 H 194/106 H 165/86 H Blood Pressure Mean 122 135 112 Pulse Ox 98 98 98 Oxygen Delivery Method Room Air Room Air Room Air 03/16/24 21:00 03/16/24 22:00 03/16/24 22:16 Temperature 98.3 F 97.8 F 98.3 F Temperature Source Oral Oral Pulse Rate 72 60 56 L Respiratory Rate 15 18 18 Blood Pressure 163/85 H 173/88 H 173/88 H Blood Pressure Mean 111 116 116 Pulse Ox 95 97 95 Oxygen Delivery Method Room Air Room Air MDM <KYLAH Turner - Last Filed: 03/16/24 22:15> [facility] Lab Data Labs: Laboratory Results - last 24 hr 03/16/24 03/16/24 20:00 21:09 WBC 18.8 H RBC 4.16 L Hgb 14.1 Hct 41.5 MCV 99.8 H MCH 33.9 H MCHC 34.0 RDW Std Deviation 58.2 H RDW Coeff of Evie 15.9 H Plt Count 260 MPV 10.0 Immature Gran % (Auto) 0.500 Neut % (Auto) 65.6 Lymph % (Auto) 24.7 [place] % (Auto) 8.7 Eos % (Auto) 0.2 Baso % (Auto) 0.3 Absolute Neuts (auto) 12.3 H Absolute Lymphs (auto) 4.65 H Nucleated RBC % 0 Differential Comment SCANNED Diff Path Review October foll Sodium 140 Potassium 3.6 Chloride 107 Carbon Dioxide 26.0 Anion Gap 7 BUN 25 H Creatinine 1.26 Estim Creat Clear Calc 90.33 Est GFR (MDRD) Af Amer 78 Est GFR (MDRD) Non-Af 65 BUN/Creatinine Ratio 19.8 Glucose 119 H Lactic Acid 0.9 Calcium 9.3 Total Bilirubin 0.30 AST 23 ALT 33 Alkaline Phosphatase 78 Total Protein 7.9 Albumin 3.4 Globulin 4.5 H Albumin/Globulin Ratio 0.8 L Lipase 25 Urine Color Yellow Urine Clarity Clear Urine pH 7.0 Ur Specific [place] 1.010 Urine Protein Negative Urine Glucose (UA) Normal Urine Ketones Negative Urine Occult Blood 150 H Urine Nitrite Negative Urine Bilirubin Negative Urine Urobilinogen Normal Ur Leukocyte Esterase Negative Urine RBC 25-50 SEEN Urine WBC 0 SEEN Ur Squamous Epith Cells 0 SEEN Urine Bacteria 0 SEEN Urine Mucus 0 SEEN Radiography Diagnostic Testing: Clinical Impression(s) from Imaging Studies Abdomen/Pelvis CT 03/16/24 20:57 IMPRESSION: Bilateral renal calculi. Left hydronephrosis and left hydroureter. Distal left ureteral stones up to 4 mm located 1.4 cm proximal to the UVJ Cholelithiasis. Electronically Signed: Brad Chaves DO at 21:53 EDT Reading Location ID and State: [facility] / [place] Tel [phone], Service support , Treatment and Re-Evaluation :: Differential diagnosis includes however is not limited to: Postsurgical infection, obstructing uropathy, UTI, pyelonephritis, postsurgical pain Patient appears to be in no obvious respiratory distress, patient is hypertensive however he is in a moderate amount of pain. Present to the emerged part with left-sided flank pain post lithotripsy, lasering of the left obstructing stone. Looking at the patient's surgical note, everything went well, the stone was able to break the multiple pieces. Patient will receive basic laboratory values including CBC CMP lipase. CT scan of the abdomen pelvis will be obtained. Patient be given IV fluids, Zofran morphine Toradol, he will be reevaluated. All radiologic examinations were read, reviewed by the emergency department attending. From these reads, a plan of care will be put in place. Patient's urinalysis shows no white blood cells, no bacteria, 150 blood. Patient's laboratory values shows a white blood cell count of 18.8, hemoglobin stable. Patient's creatinine is 1.26, lactic acid is negative. Lipase is 25. Patient CT scan of the abdomen pelvis shows bilateral renal calculi, left hydronephrosis and left hydroureter, distal left ureteral stones up to 4 mm located 1.4 cm proximal to the UVJ, cholelithiasis. Patient was redosed with IV Dilaudid. Patient case will be reviewed with Dr. Salter. Spoke with urologist, who recommend the patient be admitted. Patient admitted to his service under MedSurg. Observation. Spoke with the patient he is agreeable. <Dr. Martin Reveles, DO - Last Filed: 03/16/24 22:34> [facility] Lab Data Labs: Laboratory Results - last 24 hr 03/16/24 03/16/24 20:00 21:09 WBC 18.8 H RBC 4.16 L Hgb 14.1 Hct 41.5 MCV 99.8 H MCH 33.9 H MCHC 34.0 RDW Std Deviation 58.2 H RDW Coeff of Evie 15.9 H Plt Count 260 MPV 10.0 Immature Gran % (Auto) 0.500 Neut % (Auto) 65.6 Lymph % (Auto) 24.7 [place] % (Auto) 8.7 Eos % (Auto) 0.2 Baso % (Auto) 0.3 Absolute Neuts (auto) 12.3 H Absolute Lymphs (auto) 4.65 H Nucleated RBC % 0 Differential Comment SCANNED Diff Path Review May foll Sodium 140 Potassium 3.6 Chloride 107 Carbon Dioxide 26.0 Anion Gap 7 BUN 25 H Creatinine 1.26 Estim Creat Clear Calc 90.33 Est GFR (MDRD) Af Amer 78 Est GFR (MDRD) Non-Af 65 BUN/Creatinine Ratio 19.8 Glucose 119 H Lactic Acid 0.9 Calcium 9.3 Total Bilirubin 0.30 AST 23 ALT 33 Alkaline Phosphatase 78 Total Protein 7.9 Albumin 3.4 Globulin 4.5 H Albumin/Globulin Ratio 0.8 L Lipase 25 Urine Color Yellow Urine Clarity Clear Urine pH 7.0 Ur Specific [place] 1.010 Urine Protein Negative Urine Glucose (UA) Normal Urine Ketones Negative Urine Occult Blood 150 H Urine Nitrite Negative Urine Bilirubin Negative Urine Urobilinogen Normal Ur Leukocyte Esterase Negative Urine RBC 25-50 SEEN Urine WBC 0 SEEN Ur Squamous Epith Cells 0 SEEN Urine Bacteria 0 SEEN Urine Mucus 0 SEEN Radiography Diagnostic Testing: Clinical Impression(s) from Imaging Studies Abdomen/Pelvis CT 03/16/24 20:57 IMPRESSION: Bilateral renal calculi. Left hydronephrosis and left hydroureter. Distal left ureteral stones up to 4 mm located 1.4 cm proximal to the UVJ Cholelithiasis. Electronically Signed: Brad Chaves DO at 21:53 EDT , Treatment and Re-Evaluation :: Differential diagnosis includes however is not limited to: Postsurgical infection, obstructing uropathy, UTI, pyelonephritis, postsurgical pain Patient appears to be in no obvious respiratory distress, patient is hypertensive however he is in a moderate amount of pain. Present to the emerged part with left-sided flank pain post lithotripsy, lasering of the left obstructing stone. Looking at the patient's surgical note, everything went well, the stone was able to break the multiple pieces. Patient will receive basic laboratory values including CBC CMP lipase. CT scan of the abdomen pelvis will be obtained. Patient be given IV fluids, Zofran morphine Toradol, he will be reevaluated. All radiologic examinations were read, reviewed by the emergency department attending. From these reads, a plan of care will be put in place. Patient's urinalysis shows no white blood cells, no bacteria, 150 blood. Patient's laboratory values shows a white blood cell count of 18.8, hemoglobin stable. Patient's creatinine is 1.26, lactic acid is negative. Lipase is 25. Patient CT scan of the abdomen pelvis shows bilateral renal calculi, left hydronephrosis and left hydroureter, distal left ureteral stones up to 4 mm located 1.4 cm proximal to the UVJ, cholelithiasis. Patient was redosed with IV Dilaudid. Patient case will be reviewed with Dr. Salter. Spoke with urologist, who recommend the patient be admitted. Patient admitted to his service under MedSurg. Observation. Spoke with the patient he is agreeable. Attending note: HISTORY OF PRESENT ILLNESS: 48-year-old male presents with Notes left lower back pain and nausea. Patient denies any saddle anesthesia, urinary retention, bowel or bladder incontinence, lower extremity weakness, fever or IV drug use, no recent spinal manipulation or surgery, no recent urinary catheterization. REVIEW OF SYSTEMS: Pertinent positives: Back pain, flank pain, nausea Pertinent negatives: Fever PHYSICAL EXAM: Nursing triage notes reviewed, Vital signs reviewed Constitutional: please see mdm HENT: MMM Eyes: Pupils equal round and reactive to light, Extraocular muscles intact Neck: No stridor, no JVD, full neck ROM Lungs: Clear to auscultation, No wheezing or rales. No increased work of br eathing, no conversational dyspnea, no accessory muscle use, no nasal flaring. No respiratory distress noted Heart: Regular rate and rhythm, No murmurs, No rubs and No gallops, 2+ distal pulses (radial, femoral, posterior tibial) in all extremities Abdomen: Soft, : Left CVA tenderness MEDICAL DECISION MAKING: Chief Complaint: Flank pain, back pain External records reviewed: Reviewed prior urology evaluation Factors affecting care: Nephrolithiasis Social determinants of health: none History obtained from others: Family Consults: Urology MDM Narrative: Patient was initially hemodynamically stable, afebrile and nontoxic-appearing. Concern for pyelonephritis, nephrolithiasis, AAA. Low suspicion for space- occupying lesion of the spine given lack of red flags, focal neurologic deficits, and more possible diagnosis of nephrolithiasis. Impression: 1. Nephrolithiasis 2. Elevated white blood cell count Dispo: Admit This note was generated with [employer] dictation software. It may contain incorrect words, spelling, and punctuation that were not noted in review of the chart prior to signing. Discharge Plan Dx/Rx/DC Orders Clinical Impression: Acute flank pain, Hydronephrosis with renal and ureteral calculous obstruction, Leukocytosis, Intractable back pain Disposition Disposition: Acute Care Hospital [facility] Discharge Date/Time: 03/16/24 22:31
[2024-03-16] MEDS: Ondansetron 4 MG/2 ML Vial IV (20:11)
[2024-03-16] MEDS: Ketorolac 15 MG/ML Vial IM (20:11)
[2024-03-16] MEDS: 0.9% Normal Saline (1000mL) 1,000 ML 999 ML IV (20:12)
[2024-03-16] MEDS: Morphine 4 MG/ML Syringe IV (20:12)
[2024-03-16 20:22] LABS: Bacteria 0 SEEN /hpf (None Seen); Mucous, Urine 0 SEEN /hpf (<or=2+); Squamous Epithelial Cells - UA 0 SEEN /hpf (0-5); White Blood Cells 0 SEEN /hpf (0-5)
[2024-03-16 20:39] LABS: Absolute Lymphocyte Count 4.65 X10^3/uL (0.83-4.51); Absolute Neutrophil Count 12.3 X10^3/uL (2.0-7.7); Basophil# 0.05 X10^3/uL; Basophil% 0.3 % (0-1); Color, Urine Yellow (Yellow); Eosinophil# 0.03 X10^3/uL; Eosinophils% 0.2 % (0-5); Glucose, Dipstick Normal (Normal); Hematocrit 41.5 % (40-54); Hemoglobin 14.1 g/dL (13.0-16.5); Ketone-Dipstick Negative (Negative); Leukocyte Esterase-Dipstick Negative /ul (Negative); Lymphocyte # 4.65 X10^3/ul (0.83-4.51); Lymphocyte % 24.7 % (19-41); Mean Corpuscular Hgb 33.9 pg (27.0-32.0); Mean Corpuscular Volume 99.8 fL (80-94); Monocyte# 1.64 X10^3/uL; Monocyte% 8.7 % (0-10); NRBC Flagged by Analyzer 0 % (0-5); Neutrophil # 12.33 X10^3/uL (2.7-7.7); Neutrophil % 65.6 % (47-70); Nitrite-Dipstick Negative (Negative); Occult Blood-Urine 150 /ul (Negative); POSITIVE DIFFERENTIAL YES; Platelet Count 260 K/mm3 (150-450); Protein-Dipstick Negative (Negative); RBC Distribution Width CV 15.9 % (11.6-14.6); RBC Distribution Width SD 58.2 fl (35.1-43.9); Red Blood Count 4.16 M/mm3 (4.6-6.2); Urine Bilirubin Dipstick Negative (Negative); Urine Clarity Clear (Clear); Urine Urobilinogen Normal (Normal); White Blood Count 18.8 K/mm3 (4.4-11.0)
[2024-03-16 20:40] LABS: Differential Indicated SCAN CRITERIA MET
[2024-03-16 20:56] LABS: ALB/GLOB Ratio 0.8 RATIO (0.9-2.4); AST(SGOT) 23 U/L (15-37); Alanine Aminotransfer ALT/SGPT 33 U/L (16-61); Albumin, Serum 3.4 g/dL (3.2-5.0); Alkaline Phosphatase 78 U/L (45-117); Anion Gap 7 (5-15); BUN 25 mg/dL (7-18); BUN/Creat Ratio 19.8 RATIO (10-20); Calcium,Total 9.3 mg/dL (8.5-10.1); Chloride 107 mmol/L (98-107); Creatinine, Serum 1.26 mg/dL (0.70-1.30); EST Glomerular Filtration Rate 65 mL/min (>60); Est Glom Filt Rate - Afr Amer 78 mL/min (>60); Estimated Creatinine Clearance 90.33 ml/min; Globulin 4.5 g/dL (2.2-4.2); Glucose 119 mg/dL (74-106); Lipase 25 U/L (13-75); Potassium 3.6 mmol/L (3.5-5.1); Protein, Total 7.9 g/dL (6.4-8.2); Sodium Level 140 mmol/L (136-145)
--- NOTE | 2024-03-16 20:57 | CT_ITS ---
STUDY: CT ABDOMEN AND PELVIS WITH CONTRAST REASON FOR EXAM: Male, 48 years old. lower abdominal pain RADIATION DOSAGE (If Supplied By Facility): CTDIvol = ( 22.77 ) mGy, DLP = ( 2234.21 ) mGycm TECHNIQUE: Transaxial images were obtained from the dome of the diaphragm to the symphysis pubis without oral contrast. IV 100mL Isovue-370 was administered. Sagittal and coronal images were reconstructed. Individualized dose optimization techniques were used for this CT. COMPARISON: None. FINDINGS: The visualized lung bases are unremarkable. The visualized portions of the heart are within normal limits. Normal liver. Cholelithiasis. No significant dilatation of the extrahepatic biliary system. Normal spleen. Normal pancreas. Normal bilateral adrenal glands. Bilateral renal calculi up to 3 mm. Left hydronephrosis and left hydroureter. Distal left ureteral stones up to 4 mm located 1.4 cm proximal to the UVJ Normal visualized stomach. Normal small intestine. Mild diverticulosis of the colon. The appendix is visualized and appears normal. Normal abdominal aorta. Normal inferior vena cava. Normal retroperitoneum. Normal urinary bladder. Normal abdominal wall. Normal osseous structures. CT/Abdomen/Pelvis W IV Cont ONLY IMPRESSION: Bilateral renal calculi. Left hydronephrosis and left hydroureter. Distal left ureteral stones up to 4 mm located 1.4 cm proximal to the UVJ Cholelithiasis. Electronically Signed: Brad Chaves DO at 21:53 EDT ,
[2024-03-16 21:07] LABS: Red Blood Cells-Urine 25-50 SEEN /hpf (0-5)
[2024-03-16 21:13] LABS: Differential Comment SCANNED
[2024-03-16 21:56] LABS: Lactic Acid 0.9 mmol/L (0.4-1.9)
[2024-03-16] MEDS: HYDROmorphone 0.5 MG/0.5 ML SYRINGE IV (22:09)
[2024-03-17] MEDS: 0.9% Normal Saline (1000mL) 1,000 ML 150 ML IV ×4 (00:05→19:54)
[2024-03-17] MEDS: Morphine 2 MG/ML Syringe IV ×7 (00:08→22:47)
[2024-03-17] MEDS: Ketorolac 15 MG/ML Vial IV ×3 (00:09→19:54)
[2024-03-17] MEDS: POTASSIUM CITRATE 10 MEQ TABLET.ER PO ×3 (00:22→16:20)
[2024-03-17] MEDS: Tamsulosin HCl 0.4 MG Capsule PO ×3 (00:22→22:10)
[2024-03-17 04:45] VITALS: BP 136/88; PULSE 50; RESP 16; TEMP 36.6; O2SAT 94
[2024-03-17] MEDS: Ondansetron 4 MG/2 ML Vial IV (06:33)
[2024-03-17 09:00] VITALS: BP 129/87; PULSE 51; RESP 18; TEMP 36.8; O2SAT 98
[2024-03-17] MEDS: 0.9% Saline Lock 10 ML Syringe IV (09:09)
--- NOTE | 2024-03-17 10:33 | PCM.HP.STD ---
HPI - General General Date of Admission: 03/16/24 Date of Service: 03/16/24 Chief Complaint: Kidney stone HPI Narrative SHAYNA DENNY, is a 48 M who presents to the emergency room with severe intractable pain he had a kidney stone that was lasered a few days beforehand CAT scan was done demonstrated the few tiny fragments in the distal left ureter I think very likely can be opacity does not been able to tolerate the pain this morning?looks very comfortable. Will let him have regular food push fluids stay on Flomax if he is able to pass the stones of the pain resolves and go home with pain medicine if not we may have to do surgical intervention [facility] Medical History Bacterial infection of skin Kidney calculi Home Medications ?Medication ?Instructions ?Recorded ?Last Taken ?Type amlodipine 10 mg tablet 10 mg PO DAILY blood pressure #30 05/30/18 03/12/24 Rx TABLETS allopurinol 300 mg tablet 300 mg PO DAILY gout 03/13/24 03/12/24 History duloxetine 60 mg capsule,delayed 60 mg PO DAILY anxiety/depression 03/13/24 03/12/24 History release losartan 100 mg tablet 100 mg PO DAILY bp 03/13/24 03/12/24 History potassium citrate 10 mEq (1,080 10 meq PO BID kidney stones 03/13/24 03/12/24 History mg) tablet,extended release sildenafil 100 mg tablet 50 mg PO PRN PRN health 03/16/24 Unknown History Allergy/AdvReac Type Severity Reaction Status Date / Time No Known Allergies Allergy Verified 03/16/24 19:34 Surgical History H/O left wrist surgery History of ankle surgery Hx of shoulder surgery Social History Smoking Status: Never smoker Vital Signs Vital Signs Vital Signs: 03/16/24 19:34 03/16/24 19:36 03/16/24 20:36 Temperature 97.4 F L 98.3 F 98 F Temperature Source Temporal Oral Oral Pulse Rate 59 L 57 L 54 L Respiratory Rate 18 15 18 Blood Pressure 171/98 H 194/106 H 165/86 H Blood Pressure Mean 122 135 112 Blood Pressure Source Blood Pressure Position Blood Pressure Location Pulse Ox 98 98 98 Oxygen Delivery Method Room Air Room Air Room Air 03/16/24 21:00 03/16/24 22:00 03/16/24 22:16 Temperature 98.3 F 97.8 F 98.3 F Temperature Source Oral Oral Pulse Rate 72 60 56 L Respiratory Rate 15 18 18 Blood Pressure 163/85 H 173/88 H 173/88 H Blood Pressure Mean 111 116 116 Blood Pressure Source Blood Pressure Position Blood Pressure Location Pulse Ox 95 97 95 Oxygen Delivery Method Room Air Room Air 03/16/24 23:14 03/17/24 04:45 Temperature 98.3 F 97.9 F Temperature Source Oral Oral Pulse Rate 58 L 50 L Respiratory Rate 18 16 Blood Pressure 160/99 H 136/88 H Blood Pressure Mean 119 104 Blood Pressure Source Monitor Monitor Blood Pressure Position Semi-Fowlers Semi-Fowlers Blood Pressure Location Left Arm Left Arm Pulse Ox 94 94 Oxygen Delivery Method Room Air Room Air Weight Weight: 119 kg Body Mass Index (BMI) 38.8 Physical Exam Const alert and oriented x3 General Appearance: cooperative HEENT normocephalic and head/scalp atraumatic Eyes PERRL and EOMs intact bilaterally Neck supple, no JVD and no carotid bruits Resp normal respiratory effort, normal air movement and clear to auscultation bilaterally Cardio regular rate and no murmurs GI normal to inspection, nondistended, normoactive bowel sounds and soft to palpation Extremity normal capillary refill General Extremity: no tenderness to palpation of joints or extremities; Negative for edema Skin no rashes or lesions noted and no wounds General Skin Exam: no breakdown Neuro CN's II-XII intact bilaterally Psych affect normal Appearance: appropriate Results Lab / Micro Data 03/16/24 20:00 03/16/24 20:00 Labs: Laboratory Results - last 24 hr 03/16/24 20:00: WBC 18.8 H, RBC 4.16 L, Hgb 14.1, Hct 41.5, MCV 99.8 H, MCH 33.9 H, MCHC 34.0, RDW Std Deviation 58.2 H, RDW Coeff of Evie 15.9 H, Plt Count 260, MPV 10.0, Immature Gran % (Auto) 0.500, Neut % (Auto) 65.6, Lymph % (Auto) 24.7, [place] % (Auto) 8.7, Eos % (Auto) 0.2, Baso % (Auto) 0.3, Absolute Neuts (auto) 12.3 H, Absolute Lymphs (auto) 4.65 H, Nucleated RBC % 0, Differential Comment SCANNED, Diff Path Review May foll, Sodium 140, Potassium 3.6, Chloride 107, Carbon Dioxide 26.0, Anion Gap 7, BUN 25 H, Creatinine 1.26, Estim Creat Clear Calc 90.33, Est GFR (MDRD) Af Amer 78, Est GFR (MDRD) Non-Af 65, BUN/Creatinine Ratio 19.8, Glucose 119 H, Calcium 9.3, Total Bilirubin 0.30, AST 23, ALT 33, Alkaline Phosphatase 78, Total Protein 7.9, Albumin 3.4, Globulin 4.5 H, Albumin/Globulin Ratio 0.8 L, Lipase 25, Urine Color Yellow, Urine Clarity Clear, Urine pH 7.0, Ur Specific [place] 1.010, Urine Protein Negative, Urine Glucose (UA) Normal, Urine Ketones Negative, Urine Occult Blood 150 H, Urine Nitrite Negative, Urine Bilirubin Negative, Urine Urobilinogen Normal, Ur Leukocyte Esterase Negative, Urine RBC 25-50 SEEN, Urine WBC 0 SEEN, Ur Squamous Epith Cells 0 SEEN, Urine Bacteria 0 SEEN, Urine Mucus 0 SEEN 03/16/24 21:09: Lactic Acid 0.9 Imaging Radiology Impression Abdomen/Pelvis CT 03/16/24 20:57 IMPRESSION: Bilateral renal calculi. Left hydronephrosis and left hydroureter. Distal left ureteral stones up to 4 mm located 1.4 cm proximal to the UVJ Cholelithiasis. Electronically Signed: Brad Chaves DO at 21:53 EDT Reading Location ID and State: [facility] / [place] Tel [phone], Service support , ADDENDUM: 03/16/24 1921 IMPRESSION: undefined Assessment & Plan Assessment/Plan (1) Intractable back pain: PLAN: Continue with hydration, n.p.o. at midnight, check a KUB tomorrow morning, if fails to pass the stone on the offer the patient surgery. (2) Hydronephrosis with renal and ureteral calculous obstruction: (3) Acute flank pain:
[2024-03-17 11:48] LABS: Bedside Glucose 85 mg/dL (74-106)
[2024-03-17] MEDS: Losartan Potassium 100 MG Tablet PO (12:28)
[2024-03-17] MEDS: DULoxetine Hcl 60 MG Capsule PO (12:28)
[2024-03-17] MEDS: amLODIPine 10 MG Tablet PO (12:29)
[2024-03-17] MEDS: Allopurinol 300 MG Tablet PO (12:29)
[2024-03-17 16:00] VITALS: BP 129/71; PULSE 51; RESP 18; TEMP 37.1; O2SAT 98
[2024-03-17 20:50] VITALS: BP 136/81; PULSE 57; RESP 18; TEMP 37; O2SAT 98
[2024-03-18] VITALS (12 sets, daily range): BP systolic 109–144; BP diastolic 75–95; PULSE 48–57; RESP 12–18; TEMP 36.4–36.8; O2SAT 88–98; BMI 38.8
[2024-03-18] MEDS: 0.9% Saline Lock 10 ML Syringe IV ×2 (02:27→08:47)
[2024-03-18] MEDS: Ketorolac 15 MG/ML Vial IV ×3 (02:27→15:12)
[2024-03-18] MEDS: 0.9% Normal Saline (1000mL) 1,000 ML 150 ML IV ×2 (02:27→08:47)
--- NOTE | 2024-03-18 06:00 | RAD_ITS ---
STUDY: X-RAY - ABDOMEN/PELVIS REASON FOR EXAM: Male, 48 years old. Left-sided calculus. TECHNIQUE: Single AP view of the abdomen / pelvis. COMPARISON: Comparison is made with prior study dated March 11, 2024. FINDINGS: Normal visualized lung bases. There is an abundance of fecal material throughout the colon. Calcified gallstones. Stable small right intrarenal calculi. The previously seen calculus overlying the transverse process of the L2 vertebra on the left side is not seen at this time. Normal soft tissue structures. Normal visualized osseous structures. RAD/Abdomen Single View IMPRESSION: Calcified gallstone. Calcified right intrarenal calculi. Electronically Signed: Drew Arriola MD at 11:13 EDT ,
[2024-03-18 07:14] LABS: Absolute Lymphocyte Count 3.24 X10^3/uL (0.83-4.51); Absolute Neutrophil Count 4.9 X10^3/uL (2.0-7.7); Basophil# 0.04 X10^3/uL; Basophil% 0.4 % (0-1); Eosinophil# 0.17 X10^3/uL; Eosinophils% 1.9 % (0-5); Hematocrit 40.7 % (40-54); Hemoglobin 13.9 g/dL (13.0-16.5); Lymphocyte # 3.24 X10^3/ul (0.83-4.51); Lymphocyte % 35.4 % (19-41); Mean Corp Hgb Conc 34.2 g/dL (32-36); Mean Corpuscular Hgb 33.7 pg (27.0-32.0); Mean Corpuscular Volume 98.8 fL (80-94); Mean Platelet Vol. 9.8 fl (6.2-12.0); Monocyte% 8.7 % (0-10); NRBC Flagged by Analyzer 0 % (0-5); Neutrophil # 4.85 X10^3/uL (2.7-7.7); Neutrophil % 53.1 % (47-70); Platelet Count 250 K/mm3 (150-450); RBC Distribution Width CV 14.9 % (11.6-14.6); RBC Distribution Width SD 54.4 fl (35.1-43.9); Red Blood Count 4.12 M/mm3 (4.6-6.2); White Blood Count 9.2 K/mm3 (4.4-11.0)
--- NOTE | 2024-03-18 07:35 | PCM.CONS.B ---
Consult Date of Consult: 03/18/24 Reason for Consult Patient was admitted for stones in the distal ureter status post laser of a stone in the left kidney stone fragments in the distal ureter has not been able to pass the fragments KUB today demonstrated looks like he still has a fragment stuck in the distal ureter. Option discussed with the patient of continued conservative measures to see if he get passed a stone or intervention with ureteroscopy and extraction of the fragments. At this point the patient is agreeable with intervention. N.p.o. for surgery today and we will proceed with left ureteroscopy basket extraction of stone fragments and laser possible stent.
[2024-03-18 07:49] LABS: Anion Gap 6 (5-15); BUN 15 mg/dL (7-18); BUN/Creat Ratio 17.7 RATIO (10-20); Calcium,Total 9.5 mg/dL (8.5-10.1); Chloride 107 mmol/L (98-107); Creatinine, Serum 0.85 mg/dL (0.70-1.30); EST Glomerular Filtration Rate 102 mL/min (>60); Est Glom Filt Rate - Afr Amer 124 mL/min (>60); Glucose 95 mg/dL (74-106); Potassium 3.5 mmol/L (3.5-5.1); Sodium Level 139 mmol/L (136-145)
[2024-03-18 09:29] LABS: Pathologist Review Reviewed
[2024-03-18] MEDS: Morphine 2 MG/ML Syringe IV (10:26)
--- NOTE | 2024-03-18 11:19 | PRE.ANES_ITS ---
ASA Classification* ASA Classification ASA Classification: 2 Assessment & Plan Anesthesia* Anesthesia Assessment Anesthesia Assessment: Discussed sedation and/or anesthesia options, risks, benefits, and alternatives with patient/parents/legal guardian/POA. Questions invited. The patient/parents/legal guardian/POA seems to understand and agrees to proceed with anesthesia plan. Reviewed the physical assessment, medical history, allergy history and patient home medications list prior to surgery/procedure/anesthetic and documented any changes. Performed airway and anesthesia risk assessments. Anesthesia Type Anesthesia Type: General History Source History Obtained from:: Patient and Chart Anesthesia Focused Assessment* Temperature: 97.6 F Pulse Rate: 50 Blood Pressure: 144/93 Respiratory Rate: 16 Pulse Ox: 94 Oxygen Delivery Method: Room Air Airway Assessment Mouth opens: >3 cm Mallampati Score: I Teeth Condition: Intact Neck Range of motion (ROM): Full ROM Focused Labs Anesthesia Preop lab: CBC WBC 9.2 K/mm3 (4.4-11.0) 03/18/24 06:30 RBC 4.12 M/mm3 (4.6-6.2) L 03/18/24 06:30 Hgb 13.9 g/dL (13.0-16.5) 03/18/24 06:30 Hct 40.7 % (40-54) 03/18/24 06:30 Plt Count 250 K/mm3 (150-450) 03/18/24 06:30 CHEMISTRY Potassium 3.5 mmol/L (3.5-5.1) 03/18/24 06:30 Sodium 139 mmol/L (136-145) 03/18/24 06:30 Magnesium 2.5 mg/dL (1.6-2.6) 03/01/24 12:22 BUN 15 mg/dL (7-18) 03/18/24 06:30 Creatinine 0.85 mg/dL (0.70-1.30) 03/18/24 06:30 Glucose 95 mg/dL (74-106) 03/18/24 06:30 POC Glucose 85 mg/dL (74-106) 03/17/24 11:17 TSH 1.85 uIU/mL (0.358-3.74) 05/16/22 15:59 COAG PT 14.2 SECONDS (11.7-14.9) 05/30/18 05:25 Pre-Assessment Diagnosis/Proposed Procedure Planned Operative Procedure(s): Left urethroscopy, basket extraction of fragments and laser. Possible left stent. 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 When Was Last Pacemaker Check QUESTION #4 FULL TEXT: You/Your Family Experience fever (hyperthermia) with Anesthesia Last Oral Intake Last Oral intake: Last Oral Intake NPO since 00:00 03/18/24 11:11 Meds taken in AM with sips of water? Meds patient instructed to take am of surgery PONV PONV - plant sciences professor: PONV - plant sciences professor Female HX of Motion Sickness HX of N/V After Surgery Non-Smoker Duration of Surgery greater than 60 minutes Number of Risk Factors PONV Score Height & Weight Height & Weight: Anesthesia: Height & Weight Height 5 ft 8.9 in 03/16/24 23:16 Weight: 119 kg 03/16/24 23:16 Body Mass Index (BMI) 38.8 03/18/24 11:11 Respiratory Assessment Respiratory Assessment - plant sciences professor: Respiratory Tract Infection Hx - plant sciences professor Hx Respiratory Tract Infection No 03/17/24 20:12 STOP Sleep Apnea STOP Sleep Apnea - plant sciences professor: STOP Sleep Apnea - plant sciences professor Hx Hypertension Yes 03/16/24 23:18 Hx Sleep Apnea Yes 03/16/24 23:18 CPAP Yes 03/16/24 23:18 BIPAP No 03/16/24 23:18 Do you snore loudly (louder than talking or can be heard Do you often feel tired/ fatigued/ sleepy during daytime? Has anyone observed you stop breathing during sleep? STOP Results Positive 03/16/24 23:18 QUESTION #5 FULL TEXT : Do you snore loudly (louder than talking or can be heard through closed doors)? Tobacco Use History Tobacco Use History - plant sciences professor: Tobacco Use History - plant sciences professor Tobacco Use Smoking Status Never smoker 03/16/24 23:18 Hx Tobacco Use No 03/16/24 23:18 Years Smoking Packs Smoked per Day Smoking Cessation Date was within the last 15 years Hx Smoking Cessation Date Hx Smoking Cessation Counseling Hematologic Medial History Hematologic Hx - plant sciences professor: Hematologic Medical Hx - field staff Hx of Blood Transfusion No 03/16/24 23:18 Hx of Transfusion in last 3 No 03/16/24 23:18 Months Date of Last Transfusion (if within last 3 months) Ever experience any problems No 03/16/24 23:18 with transfusion(s)? Specify any problems Hx of Preganancy in last 3 N/A 03/16/24 23:18 Months Nurse Filling Out Transfusion CSIGNORIN 03/16/24 23:18 & Questions: Date: 03/16/24 03/16/24 23:18 Time: 23:23 03/16/24 23:18 Patient unable to answer at this time (ie. confused, unrespo /Reproduction History /Reproductive History - plant sciences professor: /Reproductive Hx- plant sciences professor Hx Now No 03/17/24 20:12 Gestational Age (in weeks): EDC: Hx Hx Para Hx Section SAB No 03/17/24 20:12 Active Medications Active Medications: Current Medications Generic Name Dose Route Start Last Admin Trade Name Freq PRN Reason Stop Dose Admin Allopurinol 300 mg 03/17/24 08:00 03/18/24 08:51 Allopurinol 300 Mg Tablet PO Not Given DAILY GAVIN Amlodipine Besylate 10 mg 03/17/24 10:00 03/18/24 08:51 Amlodipine 10 Mg Tablet PO Not Given DAILY GAVIN Protocol Duloxetine HCl 60 mg 03/17/24 10:00 03/18/24 08:51 Duloxetine Hcl 60 Mg Capsule PO Not Given DAILY GAVIN Sodium Chloride 250 mls @ 15 mls/hr 03/16/24 23:16 IV .[id number] PRN Additional IVPB Infusion Sodium Chloride 250 mls @ 15 mls/hr 03/16/24 23:16 IV .[id number] PRN Saline Flush Sodium Chloride 1,000 mls @ 150 mls/hr 03/16/24 23:45 03/18/24 10:45 IV 0 mls/hr .[id number] [facility] Infusion Lactated Ringer's 1,000 mls @ 15 mls/hr 03/18/24 11:15 IV .Q48H [facility] Ketorolac Tromethamine 15 mg 03/16/24 23:54 03/18/24 08:47 Ketorolac 15 Mg/Ml Vial IV 03/21/24 23:55 15 mg Q6H PRN PRN Administration Pain 1-10 or Fever Losartan Potassium 100 mg 03/17/24 10:00 03/18/24 08:51 Losartan Potassium 100 Mg Tablet PO Not Given DAILY [facility] Protocol Morphine Sulfate 2 mg 03/16/24 23:55 03/18/24 10:26 Morphine 2 Mg/Ml Syringe IV 2 mg Q2H PRN PRN Administration Pain Score 1-10 Ondansetron HCl 4 mg 03/17/24 00:03 03/17/24 06:33 Ondansetron 4 Mg/2 Ml Vial IV 4 mg Q6H PRN PRN Administration NAUSEA/VOMITING Potassium Citrate 10 meq 03/16/24 23:45 03/18/24 08:51 Potassium Citrate 10 Meq Tablet.Er [facility] Sodium Chloride 10 - 40 ml 03/16/24 23:16 03/18/24 08:47 0.9% Saline Lock 10 Ml Syringe IV 10 ml UD PRN Administration SALINE FLUSH Tamsulosin HCl 0.4 mg 03/16/24 23:45 03/18/24 08:51 Tamsulosin Hcl 0.4 Mg Capsule PO Not Given BID [facility] Medical History Bacterial infection of skin Kidney calculi Home Medications ?Medication ?Instructions ?Recorded ?Last Taken ?Type amlodipine 10 mg tablet 10 mg PO DAILY blood pressure #30 05/30/18 03/12/24 Rx TABLETS allopurinol 300 mg tablet 300 mg PO DAILY gout 03/13/24 03/12/24 History duloxetine 60 mg capsule,delayed 60 mg PO DAILY anxiety/depression 03/13/24 03/12/24 History release losartan 100 mg tablet 100 mg PO DAILY bp 03/13/24 03/12/24 History potassium citrate 10 mEq (1,080 10 meq PO BID kidney stones 03/13/24 03/12/24 History mg) tablet,extended release sildenafil 100 mg tablet 50 mg PO PRN PRN health 03/16/24 Unknown History Allergy/AdvReac Type Severity Reaction Status Date / Time No Known Allergies Allergy Verified 03/16/24 19:34 Surgical History H/O left wrist surgery History of ankle surgery Hx of shoulder surgery Social History Smoking Status: Never smoker Review of Systems (Anesthesia) ROS Narrative System reviewed and no additional complaints, except as documented.
[2024-03-18] MEDS: Cefazolin 2 GM in 0.9% Normal Saline (100mL Bag) 100 ML IV (12:08)
--- NOTE | 2024-03-18 12:29 | OP.PCM_ITS ---
Report of Operation Date of Procedure: 03/18/24 Pre-Operative Diagnosis: Left distal ureteral calculi intractable pain Post-Operative Diagnosis: The same, started passed inflammation the ureter Surgery/Procedure Performed:: Cystoscopy, left ureteroscopy, left stent placement Description of Surgical Findings:: Patient was taken back to the operative room at this with induction of anesthesia he was placed in dorsolithotomy position. Last week the patient had undergone ureteroscopy and laser lithotripsy of a stone in the kidney stone and lasered completely into tiny little pieces but then came back with severe pain seen on CAT scan there are some tiny stones in the distal left ureter KUB demonstrate the stones might still be there and the pain continued has no resolution so taken back to surgery today . He underwent general anesthesia I went into the bladder with a 21 [place] rigid cystourethroscope the urethra and penis were prepped and draped you sterile fashion 1 seconds of the bladder he had a very inflamed left ureteral orifice but a wire up in the left side and then next the wire went in with a semirigid ureteroscope and inspected the distal ureter it was really inflamed but there was no stones left in the distal ureter but there was a lot of circumferential inflammation in the distal ureter. Therefore leave the side leave the stent so put a wire up in the kidney but a stent on the left side we will let this heal u p for about a week and see him back a week later to get stent out. Patient's bladder was drained his anesthetic was versed and sent home today with Pyridium antibiotics and some Flomax. Surgeon: Delroy Salter Type of Anesthesia: General Drains: stent Estimated Blood Loss (mL): 0 Admit VTE Documentation VTE Present on Admission: No VTE Mechan Device Prophylaxis: SCD's VTE Pharm Prophylaxis ordered?: No
--- NOTE | 2024-03-18 12:31 | DS.PCM_ITS ---
Providers Date of Admission: 03/16/24 Date of Discharge: 03/18/24 Primary Care Physician: Dr. Luis Enrique Paz MD Reason For Visit: RENAL CALCULUS Diagnosis Discharge Diagnosis (1) Intractable back pain: Status: Acute Code(s): M54.9 - Dorsalgia, unspecified Plan: Continue with hydration, n.p.o. at midnight, check a KUB tomorrow morning, if fails to pass the stone on the offer the patient surgery. (2) Hydronephrosis with renal and ureteral calculous obstruction: Status: Acute Code(s): N13.2 - Hydronephrosis with renal and ureteral calculous obstruction (3) Acute flank pain: Status: Acute Code(s): R10.9 - Unspecified abdominal pain Medications at Discharge Home Medications amlodipine 10 mg tablet 10 mg PO DAILY blood pressure #30 TABLETS 05/30/18 allopurinol 300 mg tablet 300 mg PO DAILY gout 03/13/24 duloxetine 60 mg capsule,delayed release 60 mg PO DAILY anxiety/depression 03/13/24 losartan 100 mg tablet 100 mg PO DAILY bp 03/13/24 potassium citrate 10 mEq (1,080 mg) tablet,extended release 10 meq PO BID kidney stones 03/13/24 sildenafil 100 mg tablet 50 mg PO PRN PRN health 03/16/24 ciprofloxacin HCl 500 mg tablet (Cipro) 500 mg PO BID #6 tabs 03/18/24 phenazopyridine 100 mg tablet (Pyridium) 100 mg PO TID #15 tabs 03/18/24 tamsulosin 0.4 mg capsule (Flomax) 0.4 mg PO DAILY #10 caps 03/18/24 Hospital Course Summary of Care Provided Minutes Spent on Discharge: 20 Hospital Course: Patient admitted for kidney stone distal left ureter status post laser lithotripsy was taken back to surgery no stone was found in the ureter the stone little fragments have passed but he had a lot of inflammation of the ureter so a stent was placed. He will discharge home after stent placement follow-up in urology to get stent removed Physical Exam Const alert and oriented x3 General Appearance: cooperative HEENT normocephalic, head/scalp atraumatic, EAC's normal and TM's normal bilaterally Eyes PERRL and EOMs intact bilaterally Pupil: sluggish Neck no lymphadenopathy, supple and no JVD General: trachea midline Lymph Lymphatic: no lymphadenopathy noted, lymphedema and lymphadenopathy Resp normal respiratory effort, normal air movement and clear to auscultation bilaterally Cardio regular rate, regular rhythm and peripheral pulses 2+ throughout GI soft to palpation, non-tender and non-distended Extremity normal capillary refill and no clubbing, cyanosis or edema General Extremity: no tenderness to palpation of joints or extremities Skin no rashes or lesions noted General Skin Exam: turgor normal Lesions: no lesions Rashes: no rashes Neuro CN's II-XII intact bilaterally Speech: speech normal Motor Exam: strength 5/5 throughout; Negative for general weakness Psych thought process normal, cooperative and affect normal Appearance: appropriate Weight / BMI Weight Weight: 119 kg Body Mass Index (BMI) 38.8 ABG / Lab / Microbiology Data 03/18/24 06:30 03/18/24 06:30 Laboratory: Laboratory Results - last 24 hr 03/16/24 20:00: Diff Path Review Reviewed 03/18/24 06:30: WBC 9.2, RBC 4.12 L, Hgb 13.9, Hct 40.7, MCV 98.8 H, MCH 33.7 H, MCHC 34.2, RDW Std Deviation 54.4 H, RDW Coeff of Evie 14.9 H, Plt Count 250, MPV 9.8, Immature Gran % (Auto) 0.500, Neut % (Auto) 53.1, Lymph % (Auto) 35.4, [place] % (Auto) 8.7, Eos % (Auto) 1.9, Baso % (Auto) 0.4, Absolute Neuts (auto) 4.9, Absolute Lymphs (auto) 3.24, Nucleated RBC % 0, Sodium 139, Potassium 3.5, Chloride 107, Carbon Dioxide 26.0, Anion Gap 6, BUN 15, Creatinine 0.85, Estim Creat Clear Calc 131.80, Est GFR (MDRD) Af Amer 124, Est GFR (MDRD) Non-Af 102, BUN/Creatinine Ratio 17.7, Glucose 95, Calcium 9.5 Radiography Diagnostic Testing: Radiology Impression KUB X-Ray 03/18/24 06:00 IMPRESSION: Calcified gallstone. Calcified right intrarenal calculi. Electronically Signed: Drew Arriola MD at 11:13 EDT , D/C Instructions Discharge Diet: No restrictions Discharge Activity: Return to Normal Activity Meaningful Use Info Meaningful Use Meaningful Use Diagnoses (Choose all that apply): None applicable Ischemic Stroke Statin Dosing Therapy Reference: STATIN DOSE THERAPY REFERENCE: * Patients > 75 years receive moderate or high dose statin therapy. * Patients 75 years or YOUNGER should receive HIGH intensity statin dose unless contraindicated. You will be required to document reason for non-treatment if statin daily dose does not meet guidelines. HIGH DOSE STATIN THERAPY DAILY Atorvastatin > than or = to 40 mg Rosuvastatin > than or = to 20 mg Amlodipine + Atorvastatin > than or = to 2.5/40 mg Ezetimibe + Simvastatin 10/80 mg Simvastatin 80mg Discharge Plan Admission Admit Date/Time: 03/16/24 22:23 Primary Reason for Your Visit: left stent Attending Provider: Delroy Saletr Primary Care Provider: Luis Enrique Paz Discharge Orders/Prescriptions Prescriptions: New tamsulosin [Flomax] 0.4 mg capsule 0.4 mg PO DAILY Qty: 10 0RF phenazopyridine [Pyridium] 100 mg tablet 100 mg PO TID Qty: 15 0RF ciprofloxacin HCl [Cipro] 500 mg tablet 500 mg PO BID Qty: 6 0RF No Action amlodipine 10 MG tablet 10 mg PO DAILY Qty: 30 0RF duloxetine 60 mg capsule,delayed release(DR/EC) 60 mg PO DAILY potassium citrate 10 mEq (1,080 mg) tablet extended release 10 meq PO BID allopurinol 300 mg tablet 300 mg PO DAILY losartan 100 mg tablet 100 mg PO DAILY sildenafil 100 mg tablet 50 mg PO PRN PRN (Reason: health) Referrals / Follow Up: Delroy Salter MD [Med Staff - Active Staff] - Luis Enrique Paz MD [Primary Care Provider] - Disposition Disposition (needs filled in before D/C Order can be placed): Home, Self Care
--- NOTE | 2024-03-18 12:32 | DCINST_ITS ---
Discharge Instructions Diet Discharge Diet: No restrictions Activity Discharge Activity: Return to Normal Activity and May Not Drive (while taking narcotic pain medications.) Dressing / Incision Call your doctor if you observe: Fever of 101 or Higher Follow Up Care Please Follow Up With: Delroy Salter MD When: Call [phone] for an appointment Test Results: Test results from this visit will be discussed in further detail at your follow- up appointment, if applicable. Discharge Plan Admission Admit Date/Time: 03/16/24 22:23 Primary Reason for Your Visit: left stent Attending Provider: Delroy Salter Primary Care Provider: Luis Enrique Paz Discharge Orders/Prescriptions Prescriptions: New tamsulosin [Flomax] 0.4 mg capsule 0.4 mg PO DAILY Qty: 10 0RF phenazopyridine [Pyridium] 100 mg tablet 100 mg PO TID Qty: 15 0RF ciprofloxacin HCl [Cipro] 500 mg tablet 500 mg PO BID Qty: 6 0RF No Action amlodipine 10 MG tablet 10 mg PO DAILY Qty: 30 0RF duloxetine 60 mg capsule,delayed release(DR/EC) 60 mg PO DAILY potassium citrate 10 mEq (1,080 mg) tablet extended release 10 meq PO BID allopurinol 300 mg tablet 300 mg PO DAILY losartan 100 mg tablet 100 mg PO DAILY sildenafil 100 mg tablet 50 mg PO PRN PRN (Reason: health) Referrals / Follow Up: Delroy Salter MD [Med Staff - Active Staff] - Luis Enrique Paz MD [Primary Care Provider] - Disposition Disposition (needs filled in before D/C Order can be placed): Home, Self Care
--- NOTE | 2024-03-18 12:40 | PCM.POST.ANE ---
Anesthesia: Postop Eval I Current Vital Signs Temperature: 97.5 F Pulse Rate: 57 Blood Pressure: 126/77 Respiratory Rate: 12 Pulse Ox: 96 Oxygen Delivery Method: Room Air Assessment Airway patent: Yes Spontaneous unlabored respirations: Yes Mental status: Awake and Calm nausea: No Vomiting: No Anesthesia Complication: No Fluid Hydration Crystalloid volume administer (ml): 200 Total IV fluid infused: 200 Progress Note Anesthesia document: Postop Eval 1 completed: Yes
[2024-03-18] MEDS: Lactated Ringers 1,000 ML 15 ML IV (12:48)
[2024-03-18] MEDS: Ondansetron 4 MG/2 ML Vial IV (14:37)
--- NOTE | 2024-03-18 16:23 | POSTOPAN2_ITS ---
Anesthesia Postop Eval I Sum Postop Eval Completion status Anesthesia document: Postop Eval 1 completed: Yes Anesthesia Postop Eval I Summary Anesthesia Postop Eval I Summary: Anesthesia Postop Eval I: Assessment Summary Airway patent Yes 03/18/24 12:41 SOFTWARE ENGINEER INTERN.[email or web address] Spontaneous unlabored Yes 03/18/24 12:41 SOFTWARE ENGINEER INTERN.SCAR respirations Mental status Awake,Calm 03/18/24 12:41 SOFTWARE ENGINEER INTERN.KAYLILOU nausea No 03/18/24 12:41 SOFTWARE ENGINEER INTERN.KAYLILOU Vomiting No 03/18/24 12:41 SOFTWARE ENGINEER INTERN.KAYLILOU Anesthesia Postop Eval I: Fluid Summary Crystalloid volume administer 200 03/18/24 12:41 SOFTWARE ENGINEER INTERN.KAYLILOU (ml) Colloids volume administered ( ml) Blood Product volume administered (ml) Total IV fluid infused 200 03/18/24 12:41 SOFTWARE ENGINEER INTERN.KAYLILOU Anesthesia Postop Eval I: Summary Notes Anesthesia Complication No 03/18/24 12:41 SOFTWARE ENGINEER INTERN.SCAR Anesthesia Complication Comment: Post-operative progress note Anesthesia: Postop Eval II Evaluation Mental status: Awake and Calm Pain Level: 1 nausea: No Vomiting: No Complications Anesthesia Complication: No
--- NOTE | 2024-03-18 16:23 | PCM.POSTANE2 ---
Anesthesia Postop Eval I Sum Postop Eval Completion status Anesthesia document: Postop Eval 1 completed: Yes Anesthesia Postop Eval I Summary Anesthesia Postop Eval I Summary: Anesthesia Postop Eval I: Assessment Summary Airway patent Yes 03/18/24 12:41 ALL SOURCE ANALYST.[email or web address] Spontaneous unlabored Yes 03/18/24 12:41 ALL SOURCE ANALYST.SCAR respirations Mental status Awake,Calm 03/18/24 12:41 ALL SOURCE ANALYST.KAYLILOU nausea No 03/18/24 12:41 ALL SOURCE ANALYST.KAYLILOU Vomiting No 03/18/24 12:41 ALL SOURCE ANALYST.KAYLILOU Anesthesia Postop Eval I: Fluid Summary Crystalloid volume administer 200 03/18/24 12:41 ALL SOURCE ANALYST.KAYLILOU (ml) Colloids volume administered ( ml) Blood Product volume administered (ml) Total IV fluid infused 200 03/18/24 12:41 ALL SOURCE ANALYST.KAYLILOU Anesthesia Postop Eval I: Summary Notes Anesthesia Complication No 03/18/24 12:41 ALL SOURCE ANALYST.SCAR Anesthesia Complication Comment: Post-operative progress note Anesthesia: Postop Eval II Evaluation Mental status: Awake and Calm Pain Level: 1 nausea: No Vomiting: No Complications Anesthesia Complication: No
== END 2024-03-18 15:21 | disposition home or self-care (01) ==
LOC: ED 20:23 → MS3 22:24
PROVIDERS: Anesthesiology; Nurse Practitioner; Admitting Provider Urology; Emergency Provider Emergency Medicine; PCP Family Medicine; Visit Provider Urology
PROC: 0TJ98ZZ Inspection of Ureter, Via Natural or Artificial Opening Endoscopic (ICD-10-PCS; CPT 52352; principal; 2024-03-18 11:50)
DX: N13.2 Hydronephrosis with renal and ureteral calculous obstruction (principal); I10 Essential (primary) hypertension; Z79.899 Other long term (current) drug therapy
CPT/HCPCS: 52332; 00910; 74018; 74177; 76000; 80048; 80053; 81001; 82962; 83605; 83690; 85025; 93005; 96361; 96374; 96375; 96376; 99221; 99285; J7030; J7120; Q9967; A4216; C1769; C2617; G0378; J2405

== ENCOUNTER → 2024-06-11 | Outpatient (CLI) | payer OTHER, SELFPAY ==
[2024-06-11 12:00] LABS: Mucous, Urine 0 SEEN /hpf (<or=2+)
[2024-06-11 15:27] LABS: Color, Urine Yellow (Yellow); Glucose, Dipstick Normal (Normal); Ketone-Dipstick 50 mg/dl (Negative); Leukocyte Esterase-Dipstick 25 /ul (Negative); Nitrite-Dipstick Negative (Negative); Occult Blood-Urine Negative /ul (Negative); Protein-Dipstick 30 mg/dl (Negative); Urine Bilirubin Dipstick Negative (Negative); Urine Clarity Sl. Cloudy (Clear); Urine Urobilinogen Normal (Normal)
[2024-06-11 16:06] LABS: Red Blood Cells-Urine 0-5 SEEN /hpf (0-5); Squamous Epithelial Cells - UA 0-5 SEEN /hpf (0-5); White Blood Cells 0-5 SEEN /hpf (0-5)
[2024-06-11 16:07] LABS: Bacteria 2+ /hpf (None Seen)
[2024-06-11 16:12] LABS: Absolute Lymphocyte Count 1.99 X10^3/uL (0.83-4.51); Absolute Neutrophil Count 3.1 X10^3/uL (2.0-7.7); Basophil# 0.03 X10^3/uL; Basophil% 0.5 % (0-1); Eosinophil# 0.05 X10^3/uL; Eosinophils% 0.8 % (0-5); Hemoglobin 16.7 g/dL (13.0-16.5); Lymphocyte # 1.99 X10^3/ul (0.83-4.51); Lymphocyte % 33.7 % (19-41); Mean Corp Hgb Conc 34.8 g/dL (32-36); Mean Corpuscular Hgb 34.4 pg (27.0-32.0); Mean Platelet Vol. 10.2 fl (6.2-12.0); Monocyte# 0.69 X10^3/uL; Monocyte% 11.7 % (0-10); NRBC Flagged by Analyzer 0 % (0-5); Neutrophil # 3.13 X10^3/uL (2.7-7.7); Neutrophil % 53.1 % (47-70); Platelet Count 234 K/mm3 (150-450); RBC Distribution Width CV 13.9 % (11.6-14.6); RBC Distribution Width SD 51.3 fl (35.1-43.9); Red Blood Count 4.85 M/mm3 (4.6-6.2); White Blood Count 5.9 K/mm3 (4.4-11.0)
[2024-06-11 16:19] LABS: AST(SGOT) 38 U/L (15-37); Alanine Aminotransfer ALT/SGPT 64 U/L (16-61); Albumin, Serum 4.1 g/dL (3.2-5.0); Alkaline Phosphatase 79 U/L (45-117); Anion Gap 8 (5-15); BUN 16 mg/dL (7-18); BUN/Creat Ratio 17.2 RATIO (10-20); Calcium,Total 9.8 mg/dL (8.5-10.1); Chloride 108 mmol/L (98-107); Cholesterol 173 mg/dL (200); Creatinine, Serum 0.93 mg/dL (0.70-1.30); EST Glomerular Filtration Rate 91 mL/min (>60); Est Glom Filt Rate - Afr Amer 111 mL/min (>60); Globulin 4.1 g/dL (2.2-4.2); Glucose 92 mg/dL (74-106); High Density Lipoprotein 34 mg/dL; PSA,Total - Annual Screen 1.51 ng/mL (0.00-4.00); Potassium 3.8 mmol/L (3.5-5.1); Protein, Total 8.2 g/dL (6.4-8.2); Sodium Level 138 mmol/L (136-145); Triglycerides 79 mg/dL; Very Low Density Lipoprotein 16 mg/dL (5-40)
[2024-06-11 17:56] LABS: Hemoglobin A1c 5.4 % (3.8-5.6)
[2024-06-17 09:22] LABS: Anti-Thyroglobulin AB < 1.0 IU/mL (0.0-0.9); Thyroglobulin, Serum Qt. 7.9 ng/mL (1.4-29.2); Thyroid Peroxidase AB 10 IU/mL (0-34)
== END | disposition home or self-care (01) ==
LOC: MFPLAB 11:51
PROVIDERS: PCP Family Medicine; Visit Provider Family Medicine
DX: Z12.5 Encounter for screening for malignant neoplasm of prostate (principal); I10 Essential (primary) hypertension; E04.1 Nontoxic single thyroid nodule; R73.02 Impaired glucose tolerance (oral)
CPT/HCPCS: 36415; 80053; 80061; 81001; 83036; 84153; 84432; 84439; 84443; 85025; 86376; 86800; G0103

== ENCOUNTER → 2024-06-15 | Outpatient (CLI) | payer OTHER, SELFPAY ==
--- NOTE | 2024-06-15 11:20 | US_ITS ---
STUDY: THYROID ULTRASOUND REASON FOR EXAM: Male, 48 years old. THYROID NODULE TECHNIQUE: Ultrasound evaluation of the thyroid was performed with real-time and static tsai-scale imaging. COMPARISON: None. FINDINGS: RIGHT LOBE: The right lobe of the thyroid gland measures 4.8 x 1.1 x 1.4 cm. There is a homogeneous echotexture. There are no demonstrated solid, cystic or complex lesions. LEFT LOBE: The left lobe of the thyroid gland measures 4.8 x 1.6 x 2.0 cm. There is a homogeneous echotexture. Nodule 1:9 x 6 x 7 mm solid isoechoic wire until ill-defined margin nodule and no echogenic foci (TR 3) of the mid left lobe consistent with adenoma. ISTHMUS: The isthmus measures 4 mm thick. . The regional lymph nodes are normal. US/Thyroid IMPRESSION: Small adenoma in the left lobe. Electronically Signed: Herman Franklin MD at 8:19 EST ,
== END | disposition home or self-care (01) ==
LOC: US 11:19
PROVIDERS: PCP Family Medicine; Referring Provider Family Medicine; Visit Provider Family Medicine
DX: E04.1 Nontoxic single thyroid nodule (principal)
CPT/HCPCS: 76536

== ENCOUNTER 2024-07-18 16:41 | Emergency (ER) | payer OTHER, SELFPAY ==
[2024-07-18 16:42] VITALS: BP 130/96; PULSE 88; RESP 16; TEMP 37.1; O2SAT 97; BMI 35.9
[2024-07-18 17:06] LABS: Absolute Lymphocyte Count 2.25 X10^3/uL (0.83-4.51); Absolute Neutrophil Count 2.2 X10^3/uL (2.0-7.7); Basophil# 0.03 X10^3/uL; Basophil% 0.6 % (0-1); Eosinophil# 0.15 X10^3/uL; Eosinophils% 2.8 % (0-5); Hematocrit 49.2 % (40-54); Hemoglobin 17.4 g/dL (13.0-16.5); Lymphocyte # 2.25 X10^3/ul (0.83-4.51); Lymphocyte % 41.7 % (19-41); Mean Corp Hgb Conc 35.4 g/dL (32-36); Mean Corpuscular Hgb 34.2 pg (27.0-32.0); Mean Corpuscular Volume 96.7 fL (80-94); Mean Platelet Vol. 10.6 fl (6.2-12.0); Monocyte# 0.79 X10^3/uL; Monocyte% 14.6 % (0-10); NRBC Flagged by Analyzer 0 % (0-5); Neutrophil # 2.16 X10^3/uL (2.7-7.7); Neutrophil % 39.9 % (47-70); Platelet Count 185 K/mm3 (150-450); RBC Distribution Width SD 50.4 fl (35.1-43.9); Red Blood Count 5.09 M/mm3 (4.6-6.2); White Blood Count 5.4 K/mm3 (4.4-11.0)
[2024-07-18 17:22] LABS: ALB/GLOB Ratio 0.8 RATIO (0.9-2.4); AST(SGOT) 28 U/L (15-37); Alanine Aminotransfer ALT/SGPT 39 U/L (16-61); Albumin, Serum 3.7 g/dL (3.2-5.0); Alkaline Phosphatase 85 U/L (45-117); Anion Gap 5 (5-15); BUN 21 mg/dL (7-18); BUN/Creat Ratio 17.6 RATIO (10-20); Calcium,Total 9.2 mg/dL (8.5-10.1); Chloride 107 mmol/L (98-107); Creatinine, Serum 1.19 mg/dL (0.70-1.30); EST Glomerular Filtration Rate 69 mL/min (>60); Est Glom Filt Rate - Afr Amer 83 mL/min (>60); Estimated Creatinine Clearance 91.98 ml/min; Globulin 4.6 g/dL (2.2-4.2); Glucose 121 mg/dL (74-106); Potassium 3.8 mmol/L (3.5-5.1); Protein, Total 8.3 g/dL (6.4-8.2); Sodium Level 136 mmol/L (136-145)
--- NOTE | 2024-07-18 17:43 | CT_ITS ---
EXAM: CT ABDOMEN AND PELVIS WITH INTRAVENOUS CONTRAST CLINICAL INDICATION: RLQ Pain TECHNIQUE: Helically acquired images were obtained of the abdomen and pelvis with intravenous contrast. This CT exam was performed using one or more of the following dose reduction techniques: automated exposure control, adjustment of the mA and/or kV according to patient size, and/or use of iterative reconstruction technique. CONTRAST: IV 100mL Isovue-300 RADIATION DOSE: CTDIvol = 18.29 mGy, DLP = 1251.30 mGy-cm COMPARISON: December 24, 2018 FINDINGS: LOWER THORAX: Unremarkable. Lung bases are clear. No cardiomegaly. No significant pericardial effusion. ABDOMEN: LIVER: Unremarkable. Homogeneous. No focal mass. GALLBLADDER AND BILE DUCTS: 2.9 cm stone in the gallbladder fundus is again noted. The gallbladder is only minimally distended without obvious inflammatory change. No intra- or extrahepatic biliary ductal dilation. PANCREAS: Unremarkable. No focal cystic or solid mass. SPLEEN: Unremarkable. Normal size without focal cystic or solid mass. ADRENALS: Unremarkable. No nodules. KIDNEYS AND URETERS: Bilateral nephrolithiasis. At least 2 nonobstructing stones in the right kidney and 3 in the left kidney., the largest 4 mm on the right. No armando hydronephrosis or ureter stone. Normal renal size and position. STOMACH AND BOWEL: See below. PELVIS: APPENDIX: Moderate fluid and mild gas in the stomach. No dilated small bowel. Slight small appendix is seen, retrocecal. Mild gas and stool in the colon mild scattered diverticulosis, especially in the descending and proximal sigmoid colon. BLADDER: Urinary bladder is collapsed and the apparent wall thickening may be due to nondistention. REPRODUCTIVE: Unremarkable as visualized. No mass. ABDOMEN and PELVIS: INTRAPERITONEAL SPACE: Unremarkable. No ascites or other fluid collection. No free air. BONES/JOINTS: Unremarkable. No suspicious lytic or blastic abnormality. SOFT TISSUES: Unremarkable. No discrete abdominal or pelvic wall hernia. VASCULATURE: Unremarkable. Abdominal aorta is non-dilated. LYMPH NODES: Unremarkable. No enlarged lymph nodes. CT/Abdomen/Pelvis W IV Cont ONLY IMPRESSION: 1. Cholelithiasis. Bilateral nephrolithiasis. Mild diverticulosis. 2. No specific acute abnormality. Normal small appendix. Electronically Signed: Sarina Floyd MD at 18:41 EST ,
[2024-07-18] MEDS: Ketorolac 30 MG/ML Syringe IV (17:49)
--- NOTE | 2024-07-18 17:51 | EDS_ITS ---
HPI HPI - GI History of Present Illness Chief Complaint: Abd Pain Informant: patient and spouse/S.O. Narrative Narrative: 48-year-old male presenting to the emergency department with chief complaint of diarrhea and abdominal pain. Patient states that since Monday he has had diarrhea with intermittent fevers. States the pain seems to be localized just underneath his umbilicus radiating towards the right side of his abdomen. He went saw primary care today was concerned about possible appendicitis he was sent to the emergency department. He notes he has had 7 episodes of diarrhea since about noon. He notes no vomiting. He denies any urinary symptoms or rashes. [facility] Medical History Bacterial infection of skin Kidney calculi Home Medications ?Medication ?Instructions ?Recorded ?Last Taken ?Type amlodipine 10 mg tablet 10 mg PO DAILY blood pressure #30 05/30/18 03/12/24 Rx TABLETS allopurinol 300 mg tablet 300 mg PO DAILY gout 03/13/24 03/12/24 History duloxetine 60 mg capsule,delayed 60 mg PO DAILY anxiety/depression 03/13/24 03/12/24 History release losartan 100 mg tablet 100 mg PO DAILY bp 03/13/24 03/12/24 History potassium citrate 10 mEq (1,080 10 meq PO BID kidney stones 03/13/24 03/12/24 History mg) tablet,extended release sildenafil 100 mg tablet 50 mg PO PRN PRN health 03/16/24 Unknown History ciprofloxacin HCl 500 mg tablet 500 mg PO BID #6 tabs 03/18/24 Unknown Rx (Cipro) phenazopyridine 100 mg tablet 100 mg PO TID #15 tabs 03/18/24 Unknown Rx (Pyridium) tamsulosin 0.4 mg capsule (Flomax) 0.4 mg PO DAILY #10 caps 03/18/24 Unknown Rx Allergy/AdvReac Type Severity Reaction Status Date / Time No Known Allergies Allergy Verified 07/18/24 16:42 Surgical History H/O left wrist surgery History of ankle surgery Hx of shoulder surgery Social History Smoking Status: Never smoker ROS ROS ED Constitutional Constitutional ED: Reports fever(s); Denies chills or weight loss Eyes Eyes: Denies change in vision or diplopia ENT ENT ED: Denies ear pain, rhinorrhea or sore throat Cardiovascular Cardiovascular: Denies chest pain, orthopnea, palpitations or racing heartbeat Respiratory/Chest Respiratory/Chest: Denies cough, dyspnea or orthopnea Gastrointestinal Gastrointestinal: Reports abdominal pain, diarrhea and other Details: Decreased appetite ; Denies nausea or vomiting Genitourinary Genitourinary ED: Denies dysuria, hematuria or urinary frequency Musculoskeletal Musculoskeletal: Denies arthralgias or myalgias Integumentary Denies abscess or rash Neurologic Neurologic: Denies headache(s) or weakness Psychiatric Psychiatric: Denies anxiety, depression, suicidal ideation or suicidal thoughts Endocrine Endocrinology: Denies polydipsia, polyphagia or polyuria Allergic/Immunologic Allergic/Immunologic ED: Denies mouth swelling, tongue swelling or urticaria EXAM Physical Exam Const Vital Signs: 07/18/24 16:42 Temperature 98.7 F Temperature Source Oral Pulse Rate 88 Respiratory Rate 16 Blood Pressure 130/96 H Blood Pressure Mean 107 Pulse Ox 97 Oxygen Delivery Method Room Air Positive well nourished and well developed General Appearance ED: well developed HEENT Reports normocephalic, head/scalp atraumatic and moist mucous membranes Eyes PERRL and EOMs intact bilaterally Neck no lymphadenopathy, supple and no JVD Resp normal respiratory effort and clear to auscultation bilaterally Cardio regular rate, regular rhythm and no murmurs GI non-distended and no masses GI Narrative: I would characterize the abdomen is nonsurgical in nature Auscultation: normoactive bowel sounds Palpation: soft and tender RLQ; Negative for guarding or rebound tenderness present Back/Spine no CVA tenderness and normal ROM Extremity normal to inspection General Extremety ED: Negative for edema General Extremity: Negative for edema Neuro oriented x3 and CN's II-XII intact bilaterally Sensorium / Orientation: alert Motor Exam: strength 5/5 throughout Psych mental status grossly normal Mood & Affect: Negative for depressed or tearful Skin no rashes or lesions noted and no wounds MDM MDM MDM Narrative Medical decision making narrative: Differential diagnosis includes but not limited to acute appendicitis colitis mesenteric adenitis diverticulitis kidney stone viral enteritis Patient's white count 5.4 with a hemoglobin of 17.4 platelet count of 185. BUN of 21 with a creatinine of 1 point a 29. Normal LFTs glucose 121. CT of the abdomen and pelvis with IV contrast was obtained read by radiology reviewed by myself. There is a normal-appearing appendix. No evidence of colitis. Noted nephrolithiasis and cholelithiasis was discussed with the patient. Clinically I think is more of a viral illness. Would recommend continued supportive care re turn if worsening or concerns patient and his are comfortable with this plan History & Record Review Discussion w/independent historian: Patient and Family Additional record(s) reviewed:: Prior labs Lab Data Attestation: I reviewed the patient's lab results. Labs: Laboratory Results - last 24 hr 07/18/24 07/18/24 16:50 17:50 WBC 5.4 RBC 5.09 Hgb 17.4 H Hct 49.2 MCV 96.7 H MCH 34.2 H MCHC 35.4 RDW Std Deviation 50.4 H RDW Coeff of Evie 14.0 Plt Count 185 MPV 10.6 Immature Gran % (Auto) 0.400 Neut % (Auto) 39.9 L Lymph % (Auto) 41.7 H [place] % (Auto) 14.6 H Eos % (Auto) 2.8 Baso % (Auto) 0.6 Absolute Neuts (auto) 2.2 Absolute Lymphs (auto) 2.25 Nucleated RBC % 0 Sodium 136 Potassium 3.8 Chloride 107 Carbon Dioxide 24.0 Anion Gap 5 BUN 21 H Creatinine 1.19 Estim Creat Clear Calc 91.98 Est GFR (MDRD) Af Amer 83 Est GFR (MDRD) Non-Af 69 BUN/Creatinine Ratio 17.6 Glucose 121 H Calcium 9.2 Total Bilirubin 0.30 AST 28 ALT 39 Alkaline Phosphatase 85 Total Protein 8.3 H Albumin 3.7 Globulin 4.6 H Albumin/Globulin Ratio 0.8 L Urine Color Yellow Urine Clarity Clear Urine pH 6.0 Ur Specific [place] 1.020 Urine Protein 30 H Urine Glucose (UA) Normal Urine Ketones Negative Urine Occult Blood Negative Urine Nitrite Negative Urine Bilirubin Negative Urine Urobilinogen 1 H Ur Leukocyte Esterase 25 H Urine RBC 0-5 SEEN Urine WBC 5-10 SEEN Ur Squamous Epith Cells 0-5 SEEN Calcium Oxalate Crystal 1+ Urine Bacteria 0 SEEN Hyaline Casts 0-5 SEEN Urine Mucus 2+ Radiography Diagnostic Testing: Clinical Impression(s) from Imaging Studies Abdomen/Pelvis CT 01/16/25 17:43 IMPRESSION: 1. Cholelithiasis. Bilateral nephrolithiasis. Mild diverticulosis. 2. No specific acute abnormality. Normal small appendix. Electronically Signed: Sarina Floyd MD at 18:41 EST , Discharge Plan Triage Chief Complaint: Abd Pain ED Provider: Vincent Mckeon Dx/Rx/DC Orders Clinical Impression: Abdominal pain, Diarrhea Instructions: Abdominal Pain Prescriptions: No Action amlodipine 10 MG tablet 10 mg PO DAILY Qty: 30 0RF duloxetine 60 mg capsule,delayed release(DR/EC) 60 mg PO DAILY potassium citrate 10 mEq (1,080 mg) tablet extended release 10 meq PO BID allopurinol 300 mg tablet 300 mg PO DAILY losartan 100 mg tablet 100 mg PO DAILY sildenafil 100 mg tablet 50 mg PO PRN PRN (Reason: health) tamsulosin [Flomax] 0.4 mg capsule 0.4 mg PO DAILY Qty: 10 0RF phenazopyridine [Pyridium] 100 mg tablet 100 mg PO TID Qty: 15 0RF ciprofloxacin HCl [Cipro] 500 mg tablet 500 mg PO BID Qty: 6 0RF Primary Care Provider: Luis Enrique Paz Referrals: Luis Enrique Paz MD [Primary Care Provider] - As Needed Print Language: Icelandic Disposition Disposition: Home, Self Care
[2024-07-18 17:56] LABS: Bacteria 0 SEEN /hpf (None Seen)
[2024-07-18 18:07] LABS: Color, Urine Yellow (Yellow); Glucose, Dipstick Normal (Normal); Ketone-Dipstick Negative (Negative); Leukocyte Esterase-Dipstick 25 /ul (Negative); Nitrite-Dipstick Negative (Negative); Occult Blood-Urine Negative /ul (Negative); Protein-Dipstick 30 mg/dl (Negative); Urine Bilirubin Dipstick Negative (Negative); Urine Clarity Clear (Clear); Urine Urobilinogen 1 mg/dl (Normal)
[2024-07-18 18:48] LABS: Calcium Oxalate Crystals Ur 1+ /hpf (<or=2+)
[2024-07-18 18:49] LABS: Mucous, Urine 2+ /hpf (<or=2+); Red Blood Cells-Urine 0-5 SEEN /hpf (0-5); Squamous Epithelial Cells - UA 0-5 SEEN /hpf (0-5); White Blood Cells 5-10 SEEN /hpf (0-5)
[2024-07-18 18:50] LABS: Hyaline Cast 0-5 SEEN /lpf (0-5)
[2024-07-18 19:03] VITALS: BP 133/78; PULSE 87; RESP 16; O2SAT 100
== END 2024-07-18 19:03 | disposition home or self-care (01) ==
PROVIDERS: Emergency Provider Emergency Medicine; PCP Family Medicine; Referring Provider Emergency Medicine; Visit Provider Emergency Medicine
DX: R10.31 Right lower quadrant pain (principal); R19.7 Diarrhea, unspecified

== ENCOUNTER 2024-10-27 23:42 | Emergency (ER) | payer OTHER, SELFPAY ==
[2024-10-27 23:43] VITALS: BP 148/84; PULSE 59; RESP 17; TEMP 36.3; O2SAT 100
--- NOTE | 2024-10-28 00:16 | EX.ED.DYSGE1 ---
HPI History of Present Illness Chief Complaint: Other, Pain/Inj Narrative Narrative: 49-year-old male presents with his because of hiccups that he has had for the last 2 days. He relates history that he had ankle surgery approximately 2 days ago. Since he was discharged, after the surgery, he has had intermittent bouts of hiccups. Sometimes they settle down, but they return. They state that he has had similar episodes and reactions after he has had procedures performed and anesthesia. He denies any fevers or chills, no shortness of breath. However, the intermittent hiccups have become more intrusive to the point where he cannot sleep. He states that there are times where they will settle down but then return and he gets constant hiccuping. He states that they called their primary care provider this evening, approximately 4 hours ago, and he could not call in any medication which he took previously. He was told to report to the emergency department to help with his hiccups. [facility] Medical History Bacterial infection of skin Kidney calculi Home Medications ?Medication ?Instructions ?Recorded ?Last Taken ?Type amlodipine 10 mg tablet 10 mg PO DAILY blood pressure #30 05/30/18 03/12/24 Rx TABLETS allopurinol 300 mg tablet 300 mg PO DAILY gout 03/13/24 03/12/24 History duloxetine 60 mg capsule,delayed 60 mg PO DAILY anxiety/depression 03/13/24 03/12/24 History release losartan 100 mg tablet 100 mg PO DAILY bp 03/13/24 03/12/24 History potassium citrate 10 mEq (1,080 10 meq PO BID kidney stones 03/13/24 03/12/24 History mg) tablet,extended release sildenafil 100 mg tablet 50 mg PO PRN PRN health 03/16/24 Unknown History ciprofloxacin HCl 500 mg tablet 500 mg PO BID #6 tabs 03/18/24 Unknown Rx (Cipro) phenazopyridine 100 mg tablet 100 mg PO TID #15 tabs 03/18/24 Unknown Rx (Pyridium) tamsulosin 0.4 mg capsule (Flomax) 0.4 mg PO DAILY #10 caps 03/18/24 Unknown Rx Allergy/AdvReac Type Severity Reaction Status Date / Time No Known Allergies Allergy Verified 10/27/24 23:42 Surgical History H/O left wrist surgery History of ankle surgery Hx of shoulder surgery Social History Smoking Status: Never smoker ROS ROS ED ROS Narrative Review of systems positive for hiccups. Denies fever or chills, no nausea or vomiting, no exacerbating or alleviating factors. No shortness of breath. He states that his right ankle does hurt him but he is postoperative day 2. Appropriate pain. EXAM Physical Exam Narrative Exam Narrative: Afebrile. Vital signs noted. Nontoxic-appearing. Cardiovascular examination reveals a regular rate and rhythm. Lungs are clear to auscultation bilaterally. Abdomen soft, nontender with positive bowel sounds. Neurological examination nonfocal and nonlateralizing. Musculoskeletal examination shows his right ankle wrapped in his dressing appears clean dry and intact without active bleeding. Good capillary refill of toes. Able to move toes. Const Vital Signs: 10/27/24 23:43 10/28/24 00:45 Temperature 97.4 F L Temperature Source Temporal Pulse Rate 59 L Respiratory Rate 17 Respiratory Effort Normal Respiratory Pattern Normal Blood Pressure 148/84 H Blood Pressure Mean 105 Pulse Ox 100 Oxygen Delivery Method Room Air MDM MDM MDM Narrative Medical decision making narrative: I do not feel differential diagnosis is applicable currently. During my examination, he did not have hiccups. However as they come in certain bouts, he was administered Thorazine 50 mg intramuscularly. He was observed here in the emergency department. Prior to administration of Thorazine intramuscularly, he was reexamined and states that he has not had a headache about. However, I do feel that he should receive medication regardless, then be discharged to follow-up with his primary care provider. Return instructions reviewed. Disposition is discharged home in stable condition. History & Record Review Discussion w/independent historian: Patient and Family Discharge Plan Triage Chief Complaint: Other, Pain/Inj ED Provider: Tato Arshad Dx/Rx/DC Orders Prescriptions: No Action amlodipine 10 MG tablet 10 mg PO DAILY Qty: 30 0RF duloxetine 60 mg capsule,delayed release(DR/EC) 60 mg PO DAILY potassium citrate 10 mEq (1,080 mg) tablet extended release 10 meq PO BID allopurinol 300 mg tablet 300 mg PO DAILY losartan 100 mg tablet 100 mg PO DAILY sildenafil 100 mg tablet 50 mg PO PRN PRN (Reason: health) tamsulosin [Flomax] 0.4 mg capsule 0.4 mg PO DAILY Qty: 10 0RF phenazopyridine [Pyridium] 100 mg tablet 100 mg PO TID Qty: 15 0RF ciprofloxacin HCl [Cipro] 500 mg tablet 500 mg PO BID Qty: 6 0RF Primary Care Provider: Luis Enrique Paz Referrals: Luis Enrique Paz MD [Primary Care Provider] - Print Language: Albanian
[2024-10-28] MEDS: ChlorproMAZINE 50 MG/2 ML Ampul IM (00:57)
[2024-10-28 01:22] VITALS: BP 128/68; PULSE 60; RESP 18; TEMP 36.8; O2SAT 95
== END 2024-10-28 01:23 | disposition home or self-care (01) ==
PROVIDERS: Emergency Provider Emergency Medicine; PCP Family Medicine; Visit Provider Emergency Medicine
DX: R06.6 Hiccough (principal)
CPT/HCPCS: 96372; 99282

== ENCOUNTER → 2025-01-02 | Outpatient (CLI) | payer OTHER, SELFPAY ==
[2025-01-02 14:31] LABS: Mucous, Urine 0 SEEN /hpf (<or=2+); Red Blood Cells-Urine 0 SEEN /hpf (0-5)
[2025-01-02 18:29] LABS: AST(SGOT) 21 U/L (<=37); Alanine Aminotransfer ALT/SGPT 24 U/L (<=46); Albumin, Serum 4.2 g/dL (3.5-5.0); Alkaline Phosphatase 76 U/L (40-129); Anion Gap 10 (5-15); BUN 15 mg/dL (4-19); BUN/Creat Ratio 15.6 RATIO (10-20); Calcium,Total 9.6 mg/dL (7.6-11.0); Carbon Dioxide 24.1 mmol/L (21.0-32.0); Chloride 107 mmol/L (98-108); Cholesterol 158 mg/dL (<=200); Globulin 3.3 g/dL (2.2-4.2); Glucose 80 mg/dL (70-99); Low Density Lipoprotein Calc. 93 mg/dL; Potassium 4.3 mmol/L (3.3-5.1); Triglycerides 141 mg/dL; Uric Acid 5.7 mg/dL (3.5-7.2); Very Low Density Lipoprotein 28 mg/dL (5-40); cholesterol:hdl ratio screen 4.27
[2025-01-02 18:54] LABS: Hematocrit 43.9 % (40-54); Hemoglobin 15.1 g/dL (13.0-16.5); Immature Granulocytes Count 0.010 X10^3/uL (0.0-0.0); Mean Corp Hgb Conc 34.4 g/dL (32-36); Mean Corpuscular Volume 99.8 fL (80-94); Mean Platelet Vol. 10.9 fl (6.2-12.0); NRBC Flagged by Analyzer 0 % (0-5); Platelet Count 224 K/mm3 (150-450); RBC Distribution Width CV 15.0 % (11.6-14.6); RBC Distribution Width SD 55.3 fl (35.1-43.9); Red Blood Count 4.40 M/mm3 (4.6-6.2); White Blood Count 5.5 K/mm3 (4.4-11.0)
[2025-01-02 22:54] LABS: Color, Urine Yellow (Yellow); Glucose, Dipstick Normal (Normal); Ketone-Dipstick Negative (Negative); Leukocyte Esterase-Dipstick Negative /ul (Negative); Nitrite-Dipstick Negative (Negative); Occult Blood-Urine Negative /ul (Negative); Protein-Dipstick 30 mg/dl (Negative); Specific Gravity, Urine 1.015 (1.002-1.030); Urine Bilirubin Dipstick Negative (Negative)
[2025-01-03 00:51] LABS: Calcium Oxalate Crystals Ur 1+ /hpf (<or=2+); Squamous Epithelial Cells - UA 0-5 SEEN /hpf (0-5)
== END | disposition home or self-care (01) ==
LOC: MFPLAB 14:26
PROVIDERS: PCP Family Medicine; Referring Provider Family Medicine; Visit Provider Family Medicine
DX: I10 Essential (primary) hypertension (principal); M10.9 Gout, unspecified; R73.02 Impaired glucose tolerance (oral)
CPT/HCPCS: 36415; 80053; 80061; 81001; 83036; 84550; 85025

== ENCOUNTER 2025-01-10 13:56 | Emergency (ER) | payer OTHER, SELFPAY ==
[2025-01-10 13:56] VITALS: BP 139/104; PULSE 112; RESP 19; TEMP 36.6; O2SAT 98; BMI 32.5
[2025-01-10 14:28] LABS: Hematocrit 48.1 % (40-54); Hemoglobin 17.1 g/dL (13.0-16.5); Immature Granulocytes Count 0.050 X10^3/uL (0.0-0.0); Mean Corp Hgb Conc 35.6 g/dL (32-36); Mean Corpuscular Volume 97.4 fL (80-94); Mean Platelet Vol. 10.0 fl (6.2-12.0); NRBC Flagged by Analyzer 0 % (0-5); Platelet Count 213 K/mm3 (150-450); RBC Distribution Width CV 14.6 % (11.6-14.6); RBC Distribution Width SD 51.9 fl (35.1-43.9); Red Blood Count 4.94 M/mm3 (4.6-6.2); White Blood Count 13.2 K/mm3 (4.4-11.0)
--- NOTE | 2025-01-10 15:43 | EX.ED.DYSGE1 ---
HPI <RENÉ Riley - Last Filed: 01/10/25 17:47> History of Present Illness Chief Complaint: Nausea/Vomiting Narrative Narrative: 49-year-old male presents with 4 days of nausea and vomiting. 2 days prior to the symptoms he started Vraylar for bipolar he started taking Vraylar for bipolar 2 days prior to the symptoms and was instructed to stop with the symptoms but he is continue to have nausea, vomiting, and diarrhea. He states yesterday he was only nauseated but was able to keep down fluids and food. He ate breakfast this morning and then around noon started vomiting again which was regurgitation of all the water he did drink. No hematemesis. He is also still having loose stools whenever he vomits that appear yellow/orange and are not black or bloody. He denies fever or chills. He has no chest pain, shortness of breath, or cough. He takes no other medications. He denies smoking or alcohol or drug use. He has no abdominal surgical history. No recent travel or antibiotics. No sick contacts. [facility] <RENÉ Riley - Last Filed: 01/10/25 17:47> [facility] Medical History Bacterial infection of skin Kidney calculi Home Medications ?Medication ?Instructions ?Recorded ?Last Taken ?Type amlodipine 10 mg tablet 10 mg PO DAILY blood pressure #30 05/30/18 03/12/24 Rx TABLETS duloxetine 60 mg capsule,delayed 60 mg PO DAILY anxiety/depression 03/13/24 03/12/24 History release losartan 100 mg tablet 100 mg PO DAILY bp 03/13/24 03/12/24 History sildenafil 100 mg tablet 50 mg PO PRN PRN health 03/16/24 Unknown History tamsulosin 0.4 mg capsule (Flomax) 0.4 mg PO DAILY #10 caps 03/18/24 Unknown Rx ondansetron 4 mg disintegrating 4 mg PO Q6H PRN nausea and 01/10/25 Unknown Rx tablet vomiting #12 tabs Allergy/AdvReac Type Severity Reaction Status Date / Time No Known Allergies Allergy Verified 01/10/25 13:58 Surgical History H/O left wrist surgery History of ankle surgery Hx of shoulder surgery Social History Smoking Status: Never smoker ROS <RENÉ Riley - Last Filed: 01/10/25 17:47> ROS ED ROS Narrative Constitutional: Negative for fever, chills, malaise. CVS: Negative for chest pain. Respiratory: Negative for shortness of breath. GI: Positive for nausea, vomiting, diarrhea. No melena, hematochezia, hematemesis. : Negative for dysuria. EXAM <RENÉ Riley - Last Filed: 01/10/25 17:47> Physical Exam Narrative Exam Narrative: CONST: Patient sitting in no acute distress. EYES: Normal inspection. ENT: Normal inspection, slightly dry mucous membranes. NECK: Normal inspection. RESP: No respiratory distress, CTAB. CVS: Slightly tachycardic with regular rhythm, no murmur, no gallop. ABD: Soft and nontender, no guarding or rebound, nondistended. SKIN: Color normal, no rash, warm, dry, intact. EXTREMITIES: Normal appearance, no pedal edema. NEURO: Alert and answering questions appropriately. PSYCH: Normal affect. Const Vital Signs: 01/10/25 13:56 01/10/25 15:56 01/10/25 17:00 Temperature 98 F Temperature Source Oral Pulse Rate 112 H 89 74 Respiratory Rate 19 H 16 15 Blood Pressure 139/104 H 148/105 H 151/92 H Blood Pressure Mean 115 119 111 Pulse Ox 98 95 96 Oxygen Delivery Method Room Air Room Air Room Air 01/10/25 17:50 Temperature 97.6 F L Temperature Source Pulse Rate 74 Respiratory Rate 15 Blood Pressure 151/92 H Blood Pressure Mean 111 Pulse Ox 96 Oxygen Delivery Method <Dr. Carlos Khoury, - Last Filed: 01/10/25 20:02> Physical Exam Const Vital Signs: 01/10/25 13:56 01/10/25 15:56 01/10/25 17:00 Temperature 98 F Temperature Source Oral Pulse Rate 112 H 89 74 Respiratory Rate 19 H 16 15 Blood Pressure 139/104 H 148/105 H 151/92 H Blood Pressure Mean 115 119 111 Pulse Ox 98 95 96 Oxygen Delivery Method Room Air Room Air Room Air 01/10/25 17:50 Temperature 97.6 F L Temperature Source Pulse Rate 74 Respiratory Rate 15 Blood Pressure 151/92 H Blood Pressure Mean 111 Pulse Ox 96 Oxygen Delivery Method [facility] <RENÉ Riley - Last Filed: 01/10/25 17:47> [facility] Narrative Medical decision making narrative: Differential includes but not limited to electrolyte derangement, WAI, intra-abdominal process, gastroenteritis Patient has had 4 days of intermittent N/V/D. Mid abdominal discomfort no overt pain. He appears well and nontoxic. He is tachycardic at 112 with otherwise normal vital signs. States he has not kept down much water today since the vomiting started. He is slightly dry mucous membranes. His abdomen is soft, nontender. Think his CBC reflects dehydration as WBC is 13.2 but hemoglobin is also elevated at 17.1. Electrolytes are normal. BUN 18, creatinine 1.39 which is slightly up from his baseline. Glucose is 113 with gap of 17. Normal LFTs and lipase. Urinalysis has ketones. He was given 2 L of IV fluids and Zofran and vitals have improved and he is feeling better and tolerating p.o. intake. He has serial benign abdominal exam so I do not think he requires CT imaging of the abdomen/pelvis. I suspect more of a viral gastroenteritis. I prescribed Zofran and provided an order for [facility] to have his renal function rechecked in 2 days. He was given return precautions and discharged in stable condition. Lab Data Attestation: I reviewed the patient's lab results. Labs: Laboratory Results - last 24 hr 01/10/25 01/10/25 01/10/25 14:16 14:58 16:15 WBC 13.2 H RBC 4.94 Hgb 17.1 H Hct 48.1 MCV 97.4 H MCH 34.6 H MCHC 35.6 RDW Std Deviation 51.9 H RDW Coeff of Evie 14.6 Plt Count 213 MPV 10.0 Immature Gran % (Auto) 0.400 Neut % (Auto) 81.4 H Lymph % (Auto) 11.6 L [place] % (Auto) 6.1 Eos % (Auto) 0.2 Baso % (Auto) 0.3 Absolute Neuts (auto) 10.7 H Absolute Lymphs (auto) 1.52 Nucleated RBC % 0 Sodium Cancelled 143 Potassium Cancelled 4.1 Chloride Cancelled 102 Carbon Dioxide Cancelled 25.0 Anion Gap Cancelled 17 H BUN Cancelled 18 Creatinine Cancelled 1.39 H Estim Creat Clear Calc Cancelled 76.44 Est GFR (MDRD) Non-Af Cancelled 62 BUN/Creatinine Ratio Cancelled 12.8 Glucose Cancelled 113 H Calcium Cancelled 10.9 Total Bilirubin Cancelled 1.24 AST Cancelled 30 ALT Cancelled 28 Alkaline Phosphatase Cancelled 97 Total Protein Cancelled 9.0 H Albumin Cancelled 4.9 Globulin Cancelled 4.1 Albumin/Globulin Ratio Cancelled 1.2 Lipase Cancelled 26 Urine Color Straw Urine Clarity Sl. Cloudy Urine pH 6.0 Ur Specific [place] 1.030 Urine Protein 100 H Urine Glucose (UA) Normal Urine Ketones 150 A* Urine Occult Blood 25 H Urine Nitrite Negative Urine Bilirubin 1 H Urine Urobilinogen Normal Ur Leukocyte Esterase Negative Urine RBC 0-5 SEEN Urine WBC 0-5 SEEN Ur Squamous Epith Cells 0-5 SEEN Urine Bacteria 0 SEEN Urine Mucus 0 SEEN <Dr. Carlos Khoury, DO - Last Filed: 01/10/25 20:02> [facility] MDM Narrative Medical decision making narrative: Differential includes but not limited to electrolyte derangement, WAI, intra-abdominal process, gastroenteritis Patient has had 4 days of intermittent N/V/D. Mid abdominal discomfort no overt pain. He appears well and nontoxic. He is tachycardic at 112 with otherwise normal vital signs. States he has not kept down much water today since the vomiting started. He is slightly dry mucous membranes. His abdomen is soft, nontender. Think his CBC reflects dehydration as WBC is 13.2 but hemoglobin is also elevated at 17.1. Electrolytes are normal. BUN 18, creatinine 1.39 which is slightly up from his baseline. Glucose is 113 with gap of 17. Normal LFTs and lipase. Urinalysis has ketones. He was given 2 L of IV fluids and Zofran and vitals have improved and he is feeling better and tolerating p.o. intake. He has serial benign abdominal exam so I do not think he requires CT imaging of the abdomen/pelvis. I suspect more of a viral gastroenteritis. I prescribed Zofran and provided an order for [facility] to have his renal function rechecked in 2 days. He was given return precautions and discharged in stable condition. Supervisory Physician Note Patient was seen and examined with the Advanced Practice Provider. Nursing notes and vital signs have been reviewed. Pertinent old records have been reviewed. I agree with the essential elements of the HAZEL's history, physical exam, assessment, and plan. The differential diagnosis and management options were discussed with the HAZEL. I participated in determining and agree with the management, procedures, final impression and disposition as documented. See changes noted by me. Please see addendum or separate note for any additional details. Impression: 1. Viral gastroenteritis 2. Dehydration secondary to #1 3. Renal insufficiency secondary to #2 Lab Data Labs: Laboratory Results - last 24 hr 01/10/25 01/10/25 01/10/25 14:16 14:58 16:15 WBC 13.2 H RBC 4.94 Hgb 17.1 H Hct 48.1 MCV 97.4 H MCH 34.6 H MCHC 35.6 RDW Std Deviation 51.9 H RDW Coeff of Evie 14.6 Plt Count 213 MPV 10.0 Immature Gran % (Auto) 0.400 Neut % (Auto) 81.4 H Lymph % (Auto) 11.6 L [place] % (Auto) 6.1 Eos % (Auto) 0.2 Baso % (Auto) 0.3 Absolute Neuts (auto) 10.7 H Absolute Lymphs (auto) 1.52 Nucleated RBC % 0 Sodium Cancelled 143 Potassium Cancelled 4.1 Chloride Cancelled 102 Carbon Dioxide Cancelled 25.0 Anion Gap Cancelled 17 H BUN Cancelled 18 Creatinine Cancelled 1.39 H Estim Creat Clear Calc Cancelled 76.44 Est GFR (MDRD) Non-Af Cancelled 62 BUN/Creatinine Ratio Cancelled 12.8 Glucose Cancelled 113 H Calcium Cancelled 10.9 Total Bilirubin Cancelled 1.24 AST Cancelled 30 ALT Cancelled 28 Alkaline Phosphatase Cancelled 97 Total Protein Cancelled 9.0 H Albumin Cancelled 4.9 Globulin Cancelled 4.1 Albumin/Globulin Ratio Cancelled 1.2 Lipase Cancelled 26 Urine Color Straw Urine Clarity Sl. Cloudy Urine pH 6.0 Ur Specific [place] 1.030 Urine Protein 100 H Urine Glucose (UA) Normal Urine Ketones 150 A* Urine Occult Blood 25 H Urine Nitrite Negative Urine Bilirubin 1 H Urine Urobilinogen Normal Ur Leukocyte Esterase Negative Urine RBC 0-5 SEEN Urine WBC 0-5 SEEN Ur Squamous Epith Cells 0-5 SEEN Urine Bacteria 0 SEEN Urine Mucus 0 SEEN Discharge Plan Triage Chief Complaint: Nausea/Vomiting ED Midlevel Provider: Mariaelena Denton ED Provider: Carlos Khoury Dx/Rx/DC Orders Clinical Impression: Nausea and vomiting, Diarrhea, Dehydration, Acute kidney injury Instructions: Acute Kidney Failure Dc, ED Dehydration (Adult) Prescriptions: New ondansetron 4 mg tablet,disintegrating 4 mg PO Q6H PRN (Reason: nausea and vomiting) Qty: 12 0RF No Action amlodipine 10 MG tablet 10 mg PO DAILY Qty: 30 0RF duloxetine 60 mg capsule,delayed release(DR/EC) 60 mg PO DAILY losartan 100 mg tablet 100 mg PO DAILY sildenafil 100 mg tablet 50 mg PO PRN PRN (Reason: health) tamsulosin [Flomax] 0.4 mg capsule 0.4 mg PO DAILY Qty: 10 0RF Other Ambulatory Orders: Basic Metabolic Profile (BMP) (Routine) Timeframe: 3 Days Facility: [facility] - Location: Laboratory Ordered By: Mariaelena Denton Primary Care Provider: Luis Enrique Paz Referrals: Luis Enrique Paz MD [Primary Care Provider] - Activity Restrictions/Additional Instructions: I suspect you have a viral illness causing the vomiting and diarrhea. This causes become dehydrated and caused a kidney injury. Drink plenty of fluids. When you feel better start with a bland diet. I provided an order to have your electrolytes and kidney function rechecked in 2 to 3 days. Print Language: Cook Islander Disposition Disposition: Home, Self Care Discharge Date/Time: 01/10/25 19:03
[2025-01-10] MEDS: 0.9% Normal Saline (1000mL) 1,000 ML 999 ML IV ×2 (15:49→17:48)
[2025-01-10 15:56] VITALS: BP 148/105; PULSE 89; RESP 16; O2SAT 95
[2025-01-10 16:22] LABS: Mucous, Urine 0 SEEN /hpf (<or=2+)
[2025-01-10 16:25] LABS: Color, Urine Straw (Yellow); Glucose, Dipstick Normal (Normal); Leukocyte Esterase-Dipstick Negative /ul (Negative); Nitrite-Dipstick Negative (Negative); Occult Blood-Urine 25 /ul (Negative); Protein-Dipstick 100 mg/dl (Negative); Specific Gravity, Urine 1.030 (1.002-1.030)
[2025-01-10 16:27] LABS: AST(SGOT) 30 U/L (<=37); Alanine Aminotransfer ALT/SGPT 28 U/L (<=46); Albumin, Serum 4.9 g/dL (3.5-5.0); Alkaline Phosphatase 97 U/L (40-129); Anion Gap 17 (5-15); BUN 18 mg/dL (4-19); BUN/Creat Ratio 12.8 RATIO (10-20); Calcium,Total 10.9 mg/dL (7.6-11.0); Carbon Dioxide 25.0 mmol/L (21.0-32.0); Chloride 102 mmol/L (98-108); Estimated Creatinine Clearance 76.44 ml/min (50-250); Globulin 4.1 g/dL (2.2-4.2); Glucose 113 mg/dL (70-99); Lipase 26 U/L (13-75); Potassium 4.1 mmol/L (3.3-5.1)
[2025-01-10 16:49] LABS: Urine Bilirubin Dipstick 1 mg/dL (Negative)
[2025-01-10 16:52] LABS: Ketone-Dipstick 150 mg/dl (Negative)
[2025-01-10 17:00] VITALS: BP 151/92; PULSE 74; RESP 15; O2SAT 96
[2025-01-10 17:18] LABS: Red Blood Cells-Urine 0-5 SEEN /hpf (0-5); Squamous Epithelial Cells - UA 0-5 SEEN /hpf (0-5)
[2025-01-10 17:50] VITALS: BP 151/92; PULSE 74; RESP 15; TEMP 36.4; O2SAT 96
== END 2025-01-10 19:03 | disposition home or self-care (01) ==
PROVIDERS: Physician Assistant; Emergency Provider Surgery; PCP Family Medicine; Visit Provider Surgery
DX: A08.4 Viral intestinal infection, unspecified (principal); N17.8 Other acute kidney failure; E86.0 Dehydration; I10 Essential (primary) hypertension; K31.9 Disease of stomach and duodenum, unspecified; Z79.899 Other long term (current) drug therapy
CPT/HCPCS: 80053; 81001; 83690; 85025; 96361; 96374; 99282; A4216; J2405

== ENCOUNTER → 2025-01-13 | Outpatient (CLI) | payer OTHER, SELFPAY ==
[2025-01-13 10:54] LABS: Anion Gap 14 (5-15); BUN 12 mg/dL (4-19); BUN/Creat Ratio 12.8 RATIO (10-20); Calcium,Total 9.7 mg/dL (7.6-11.0); Carbon Dioxide 23.2 mmol/L (21.0-32.0); Chloride 103 mmol/L (98-108); Glucose 91 mg/dL (70-99); Potassium 3.4 mmol/L (3.3-5.1)
== END | disposition home or self-care (01) ==
LOC: MTLAB 07:07
PROVIDERS: PCP Family Medicine; Referring Provider Physician Assistant; Visit Provider Physician Assistant
DX: N17.9 Acute kidney failure, unspecified (principal)
CPT/HCPCS: 36415; 80048

== ENCOUNTER → 2025-03-21 | Outpatient (CLI) | payer OTHER, SELFPAY ==
--- NOTE | 2025-03-21 12:04 | CT_ITS ---
PROCEDURE: ABDOMEN/PELVIS WITH CONTRAST 03/21/2025 REASON FOR EXAM: RIGHT ABDOMINAL PAIN TECHNIQUE: Procedure Code: [id number] Modality: CT Procedure: ABDOMEN/PELVIS WITH CONTRAST Coronal and Sagittal reconstruction series were provided. CONTRAST: Optiray 320 VOLUME: 94 mL One or more dose reduction techniques were used (e.g., Automated exposure control, adjustment of the mA and/or kV according to patient size, use of iterative reconstruction technique. RADIATION DOSE SUMMARY: CTDlvol: 37 mGy DLP: 1177 mGycm COMPARISON: July 18, 2024 FINDINGS: Lung bases: Mild dependent atelectasis Liver: Normal Gallbladder: Rim calcified stone in the gallbladder is 2.1 x 2.9 cm. No wall thickening or pericholecystic fluid. Spleen: Normal. Small hilar splenule. Pancreas: Normal. Adrenals: Normal. Kidneys: No collecting system dilation or solid mass seen. Bilateral renal calculi are present. Punctate calculus left midpole, left mid to lower pole. 3.8 mm calculus left lower pole. 6.4 mm calculus right lower pole. Punctate calculus posterior right midpole. Bladder: Normal Reproductive Organs: Prostate is normal size. Subtle stranding around the seminal vesicles. Non-specific. Bowel: Small sliding hiatus hernia. Small bowel is normal. Colonic diverticulosis descending colon, sigmoid colon. No diverticulitis. Appendix: Normal. Lymph nodes: None appear enlarged. Vasculature: Mild atherosclerotic plaque without aneurysm. Peritoneum / Retroperitoneum: No free air, free fluid or mass. Bones: Normal CT/Abdomen/Pelvis WITH Contrast IMPRESSION: 1. Large calculus within the otherwise unremarkable gallbladder. 2. Bilateral nonobstructing renal calculi. 3. Normal appendix 4. Diverticulosis without diverticulitis. 5. Subtle stranding around the seminal vesicles bilaterally. Non-specific. I nflammation/infection (seminal vesiculitis) is a consideration. Correlate with history (hematospermia, painful ejaculation, pel gabriela and flank pain), urinalysis. Reading Location: [id number]
== END | disposition home or self-care (01) ==
LOC: CT 09:37
PROVIDERS: PCP Family Medicine
DX: R10.9 Unspecified abdominal pain (principal)
CPT/HCPCS: 74177; Q9967

== ENCOUNTER → 2025-03-21 | Outpatient (CLI) | payer OTHER, SELFPAY ==
[2025-03-21 17:38] LABS: Hematocrit 44.7 % (40-54); Hemoglobin 15.2 g/dL (13.0-16.5); Immature Granulocytes Count 0.020 X10^3/uL (0.0-0.0); Mean Corp Hgb Conc 34.0 g/dL (32-36); Mean Corpuscular Volume 100.2 fL (80-94); Mean Platelet Vol. 11.2 fl (6.2-12.0); NRBC Flagged by Analyzer 0 % (0-5); Platelet Count 243 K/mm3 (150-450); RBC Distribution Width CV 14.6 % (11.6-14.6); RBC Distribution Width SD 54.3 fl (35.1-43.9); Red Blood Count 4.46 M/mm3 (4.6-6.2); White Blood Count 6.9 K/mm3 (4.4-11.0)
[2025-03-21 18:36] LABS: AST(SGOT) 22 U/L (<=37); Alanine Aminotransfer ALT/SGPT 23 U/L (<=46); Albumin, Serum 4.0 g/dL (3.5-5.0); Alkaline Phosphatase 77 U/L (40-129); Anion Gap 10 (5-15); BUN 14 mg/dL (4-19); BUN/Creat Ratio 16.5 RATIO (10-20); Calcium,Total 9.7 mg/dL (7.6-11.0); Carbon Dioxide 27.0 mmol/L (21.0-32.0); Chloride 104 mmol/L (98-108); Globulin 3.2 g/dL (2.2-4.2); Glucose 93 mg/dL (70-99); Potassium 4.1 mmol/L (3.3-5.1)
== END | disposition home or self-care (01) ==
LOC: MFPLAB 15:08
PROVIDERS: PCP Family Medicine
DX: R10.9 Unspecified abdominal pain (principal)
CPT/HCPCS: 36415; 80053; 85025

== ENCOUNTER 2025-04-17 11:47 | Day surgery (SDC) | payer OTHER, SELFPAY ==
[2025-04-17] VITALS (11 sets, daily range): BP systolic 119–140; BP diastolic 52–95; PULSE 52–59; RESP 12–17; TEMP 36.2–36.6; O2SAT 92–97; BMI 31.9
[2025-04-17] MEDS: Lactated Ringers 1,000 ML 15 ML IV (12:26)
[2025-04-17] MEDS: INDOCYANINE GREEN 3.75 MG in Syringe 1.5 ML 999 MG IV (12:26)
[2025-04-17] MEDS: Lidocaine 1% (5 ml sdv) 5 ML Vial IV (14:08)
[2025-04-17] MEDS: dexMEDEtomidine 200 MCG/2 ML ML 20 MCG IV (14:53)
[2025-04-17] MEDS: Ketorolac 30 MG/ML Syringe 15 MG IV (14:57)
[2025-04-17] MEDS: fentaNYL 100 MCG/2 ML Ampul 200 MCG IV (15:00)
== END 2025-04-17 17:12 | disposition home or self-care (01) ==
LOC: SDC 11:48 → AC 11:49
PROVIDERS: PCP Family Medicine; Referring Provider Surgery; Visit Provider Surgery
PROC: 0FT44ZZ Resection of Gallbladder, Percutaneous Endoscopic Approach (ICD-10-PCS; CPT 47562; principal; 2025-04-17 13:10)
DX: K80.10 Calculus of gallbladder with chronic cholecystitis without obstruction (principal); I10 Essential (primary) hypertension; Z87.891 Personal history of nicotine dependence; Z79.899 Other long term (current) drug therapy
CPT/HCPCS: 47562; S2900; 00790; 88304; 93005; J0525; J2405

== ENCOUNTER → 2025-06-19 | Outpatient (CLI) | payer OTHER, SELFPAY ==
[2025-06-19 16:11] LABS: PSA,Total - Annual Screen 3.74 ng/mL (0.02-4.00)
== END | disposition home or self-care (01) ==
LOC: MFPLAB 11:54
PROVIDERS: PCP Family Medicine
DX: Z12.5 Encounter for screening for malignant neoplasm of prostate (principal)
CPT/HCPCS: 36415; 84153; G0103